=== PATIENT | female | born 1980 | race Caucasian/White ===

== ENCOUNTER 2016-11-04 00:48 | Emergency (ER) | payer MEDICAID ==
[~2016-11-04] VITALS: Ht 180.3 cm; Wt 166.0 kg
[~2016-11-04 00:48] MED LIST: ALBU8.5H6 INH; CYCL10TA2 PO; FLUO20CA16 PO; HYDR-2666 PO; HYDR-971 PO; NITR100C62 PO; OMEP40CA5 PO; ONDA4TAB7 PO; PHEN-318 PO
[2016-11-04 01:49] LABS: BASO # 0.1 x10^3/uL (0.0-0.2); BASO % 1 % (0-3); EOS % 4 % (0-3); HEMATOCRIT 38.3 % (36.0-47.0); HEMOGLOBIN 12.9 g/dL (12.0-15.5); LYMPH # 2.4 x10^3/uL (1.0-4.8); LYMPH % 32 % (24-48); MEAN CORPUSCULAR HEMOGLOBIN 30 pg (25-35); MEAN CORPUSCULAR HGB CONC 34 g/dL (31-37); MEAN CORPUSCULAR VOLUME 88 fL (79-100); MONO % 9 % (0-9); NEUT % 53 % (31-73); PLATELET COUNT 133 x10^3/uL (140-400); RED BLOOD COUNT 4.37 x10^6/uL (3.50-5.40); RED CELL DISTRIBUTION WIDTH 12.9 % (11.5-14.5); WHITE BLOOD COUNT 7.3 x10^3/uL (4.0-11.0)
[2016-11-04 01:58] LABS: BILIRUBIN,URINE NEGATIVE (NEG); GLUCOSE,URINE NEGATIVE (NEG); NITRITE,URINE NEGATIVE (NEG); PROTEIN,URINE NEGATIVE (NEG-TRACE); UROBILINOGEN,URINE 0.2 mg/dL (0.2 mg/dL)
[2016-11-04 01:59] LABS: CALCIUM 8.8 mg/dL (8.5-10.1); CREATININE 0.8 mg/dL (0.6-1.0); GFR 81.6; POTASSIUM 3.6 mmol/L (3.5-5.1)
[2016-11-04 02:05] LABS: ALBUMIN 3.5 g/dL (3.4-5.0); TOTAL BILIRUBIN 0.2 mg/dL (0.2-1.0)
[2016-11-04 02:23] LABS: BACTERIA,URINE FEW /HPF (0-FEW); SQUAMOUS EPITHELIAL CELL,UR FEW /LPF
--- NOTE | 2016-11-04 02:33 | RAD ---
PROCEDURE CT abdomen and pelvis without contrast dated 11/04/2016. HISTORY Abdominal pain, nausea and diarrhea for 2 hours. TECHNIQUE Contiguous axial imaging of the abdomen and pelvis performed without the administration of IV or oral contrast.Exposure: One or more of the following individualized dose reduction techniques were utilized for this exam: 1. Automated exposure control. 2. Adjustment of the mA and/or kV according to patient size. 3. Use of iterative reconstruction technique. COMPARISON 07/26/2016. FINDINGS Limited images of the lung bases are clear. Heart size within normal limits. No pleural or pericardial effusion. Solid abdominal viscera not well evaluated in the absence of contrast material. No apparent attenuation abnormality of the liver or spleen. Pancreas, adrenal glands and kidneys are unremarkable. No hydronephrosis. Gallbladder is surgically absent. One opacified GI tract normal in caliber and contour. No focal bowel wall thickening. No inflammatory change in the mesenteric. Appendix normal in caliber. No ascites or lymphadenopathy. Images of pelvis show nondistended urinary bladder. Uterus is surgically absent. No free pelvic fluid or pelvic lymphadenopathy. Bone window show no acute findings. Mild multilevel spondylosis. IMPRESSION - No acute abnormality of abdomen or pelvis. Normal appendix. - Status post cholecystectomy and hysterectomy. Electronically signed by: Esau Dietz (Nov 04, 2016 02:31:28)
[2016-11-04 02:43] VITALS: BP 155/90
[2016-11-04] MEDS ORDERED: ONDA4TAB10 SL (02:45)
--- NOTE | 2016-11-04 02:45 | PHYS DOC ---
Past Medical History Past Medical History: Asthma, Bipolar, GERD, Kidney Stone, Pancreatitis, Other Additional Past Medical Histor: ENLARGED LIVER,hirtuism Past Surgical History: Cholecystectomy, Hysterectomy, Tonsillectomy, Other Additional Past Surgical Histo: CYST REMOVED ON TAILBONE Alcohol Use: None Drug Use: None Adult General Chief Complaint Chief Complaint: ABDOMINAL PAIN HPI HPI 36-year-old female presenting to the emergency department with generalized abdominal pain. She describes it as being a cramping pain is associated with nausea with one episode of nonbilious nonbloody emesis. It is nonradiating moderate intermittent and is been present for greater than 24 hours. She reports it was worse after eating a local restaurant. Review of systems is negative for chest pain shortness of breath, diarrhea. Negative for fevers or chills. All other review of systems is negative unless otherwise noted in history of present illness. Review of Systems Review of Systems SEE ABOVE. Allergies Allergies Allergies Coded Allergies Type Severity Reaction Last Updated Verified Penicillins Allergy Intermediate SWEATING 04/01/14 Yes cephalexin Allergy Intermediate SWEATING 04/01/14 Yes ketorolac Allergy Intermediate 07/26/16 Yes sulfamethoxazole Allergy Intermediate SWEATING 04/01/14 Yes tramadol Allergy Intermediate SWEATING 04/01/14 Yes trimethoprim Allergy Intermediate SWEATING 04/01/14 Yes Physical Exam Physical Exam Constitutional: Well developed, well nourished, no acute distress, non-toxic appearance. HENT: Normocephalic, atraumatic, bilateral external ears normal, oropharynx moist, no oral exudates, nose normal. [] Eyes: PERRLA, EOMI, conjunctiva normal, no discharge. Neck: Normal range of motion, no tenderness, supple, no stridor. [] Cardiovascular:Heart rate regular rhythm, no murmur Lungs & Thorax: Bilateral breath sounds clear to auscultation [] Abdomen: Soft nontender abdomen without rebound tenderness or guarding present. Negative McBurneys point. Negative Neri sign. No ecchymosis present. Skin: Warm, dry, no erythema, no rash. Back: No tenderness, no CVA tenderness. [] Extremities: No tenderness, no cyanosis, no clubbing, ROM intact, no edema. Neurologic: Alert and oriented X 3, normal motor function, normal sensory function, no focal deficits noted. [] Psychologic: Affect normal, judgement normal, mood normal. [] Current Patient Data Vital Signs Vital Signs Date Time Temp Pulse Resp B/P Pulse Ox O2 Delivery O2 Flow Rate FiO2 11/04/16 00:56 97.8 78 20 154/77 96 Room Air 97.8 Lab Values Laboratory Tests Test 11/04/16 01:18 11/04/16 01:41 Urine Collection Type Unknown Urine Color Yellow Urine Clarity Clear Urine pH 6.0 Urine Specific [place] >=1.030 Urine Protein Negativemg/dL (NEG-TRACE) Urine Glucose (UA) Negativemg/dL (NEG) Urine Ketones (Stick) Negativemg/dL (NEG) Urine Blood Negative (NEG) Urine Nitrite Negative (NEG) Urine Bilirubin Negative (NEG) Urine Urobilinogen Dipstick 0.2mg/dL (0.2 mg/dL) Urine Leukocyte Esterase Negative (NEG) Urine RBC 6-10/HPF (0-2) Urine WBC 1-4/HPF (0-4) Urine Squamous Epithelial Cells Few/LPF Urine Bacteria Few/HPF (0-FEW) Urine Mucus Marked/LPF White Blood Count 7.3x10^3/uL (4.0-11.0) Red Blood Count 4.37x10^6/uL (3.50-5.40) Hemoglobin 12.9g/dL (12.0-15.5) Hematocrit 38.3% (36.0-47.0) Mean Corpuscular Volume 88fL (79-100) Mean Corpuscular Hemoglobin 30pg (25-35) Mean Corpuscular Hemoglobin Concent 34g/dL (31-37) Red Cell Distribution Width 12.9% (11.5-14.5) Platelet Count 133x10^3/uL (140-400) L Neutrophils (%) (Auto) 53% (31-73) Lymphocytes (%) (Auto) 32% (24-48) Monocytes (%) (Auto) 9% (0-9) Eosinophils (%) (Auto) 4% (0-3) H Basophils (%) (Auto) 1% (0-3) Neutrophils # (Auto) 3.9x10^3uL (1.8-7.7) Lymphocytes # (Auto) 2.4x10^3/uL (1.0-4.8) Monocytes # (Auto) 0.7x10^3/uL (0.0-1.1) Eosinophils # (Auto) 0.3x10^3/uL (0.0-0.7) Basophils # (Auto) 0.1x10^3/uL (0.0-0.2) Sodium Level 143mmol/L (136-145) Potassium Level 3.6mmol/L (3.5-5.1) Chloride Level 106mmol/L (98-107) Carbon Dioxide Level 27mmol/L (21-32) Anion Gap 10 (6-14) Blood Urea Nitrogen 14mg/dL (7-20) Creatinine 0.8mg/dL (0.6-1.0) Estimated GFR (Cockcroft-Gault) 81.6 BUN/Creatinine Ratio 18 (6-20) Glucose Level 109mg/dL (70-99) H Calcium Level 8.8mg/dL (8.5-10.1) Total Bilirubin 0.2mg/dL (0.2-1.0) Aspartate Amino Transferase (AST) 39U/L (15-37) H Alanine Aminotransferase (ALT) 85U/L (14-59) H Alkaline Phosphatase 99U/L (46-116) Total Protein 7.0g/dL (6.4-8.2) Albumin 3.5g/dL (3.4-5.0) Albumin/Globulin Ratio 1.0 (1.0-1.7) Lipase 205U/L (73-393) Laboratory Tests 11/04/16 01:41 Laboratory Tests 11/04/16 01:41 EKG EKG [] Radiology/Procedures Radiology/Procedures [] Course & Med Decision Making Course & Med Decision Making Pertinent Labs and Imaging studies reviewed. (See chart for details) [] 36-year-old female presenting to the emergency department today with generalized abdominal pain without a focus. She also had nausea and vomiting. Afebrile. Normal heart rate. Otherwise vital signs showed mild hypertension. Pertinent physical exam finding showed a nontender abdomen. A work was obtained normal CBC. Urinalysis showed dehydration without evidence of infection. Chemistry panel otherwise unremarkable. The patient was given a shot of intramuscular Bentyl along with oral Zofran to go home with for symptomatic care. She was subsequent discharged home to follow-up with her PCP over the next 2-3 days. [id number] discharge instructions were given. Dragon Disclaimer Dragon Disclaimer This electronic medical record was generated, in whole or in part, using a voice recognition dictation system. Departure Departure Impression: Primary Impression: Abdominal pain Additional Impression: Nausea vomiting and diarrhea Disposition: HOME, SELF-CARE Condition: STABLE Referrals: UNKNOWN PCP NAME (PCP) ALEXANDRU MARIE MD Patient Instructions: Nausea and Vomiting Additional Instructions: Thank you for allowing us to participate in your care today. Followup with your primary care physician in 3 days if your symptoms do not improve. If you do not have a primary care provider you can ask for a list of our primary care providers. Return to the emergency department you have any new or concerning findings. This should be evaluated by the primary care physician and any necessary consulting services for continued management within a few days after discharge. Return to emergency room if you have any new or concerning symptoms including but not limited to fever, chills, nausea, vomiting, intractable pain, any new rashes, chest pain, shortness of air, uncontrolled bleeding, difficulty breathing, and/or vision loss. You may have been prescribed medication that can change in your level of thinking and ability to operate machinery. These medications include hydrocodone and Ativan. Also, Benadryl has been known to do this as well. Be sure to check with your pharmacist and ask if the medications you've prescribed can affect your level of consciousness. I recommend not operating heavy machinery or driving while on medication such as these. Scripts Ondansetron (Zofran Odt)4 Mg Tab.rapdis1 Tab SL PRN Q8HRS PRN NAUSEA #6 TAB Prov:WENDY DUKE MD 11/04/16 Problem Qualifiers WENDY DUKE MD Nov 04, 2016 02:45
[2016-11-04] MEDS ORDERED: DICYCLOMINE 20 MG/2 ML AMPUL. IM ONE (03:00)
== END 2016-11-04 03:12 | disposition home or self-care (01) ==
LOC: ER 00:48
DX: R10.84 Generalized abdominal pain (principal); R11.2 Nausea with vomiting, unspecified; R19.7 Diarrhea, unspecified; J45.909 Unspecified asthma, uncomplicated; K21.9 Gastro-esophageal reflux disease without esophagitis; F31.9 Bipolar disorder, unspecified; Z87.442 Personal history of urinary calculi; Z90.710 Acquired absence of both cervix and uterus; Z90.49 Acquired absence of other specified parts of digestive tract; L68.0 Hirsutism; Z88.0 Allergy status to penicillin; Z88.1 Allergy status to other antibiotic agents; Z88.2 Allergy status to sulfonamides; Z88.6 Allergy status to analgesic agent; Z88.8 Allergy status to other drugs, medicaments and biological substances
CPT/HCPCS: 36415; 74176; 80053; 81001; 83690; 85027; 99285-25

== ENCOUNTER 2016-12-09 05:24 | Emergency (ER) | payer MEDICAID ==
[~2016-12-09] VITALS: Ht 180.3 cm; Wt 166.0 kg
[~2016-12-09 05:24] MED LIST changes: +ONDA4TAB10 SL
[2016-12-09] MEDS ORDERED: IV NORMAL SALINE 1000ML BAG 1,000 ML IV SCH (05:45)
--- NOTE | 2016-12-09 05:45 | PHYS DOC ---
Past Medical History Past Medical History: Asthma, Bipolar, GERD, Kidney Stone, Pancreatitis, Other Additional Past Medical Histor: ENLARGED LIVER,hirtuism Past Surgical History: Cholecystectomy, Hysterectomy, Tonsillectomy, Other Additional Past Surgical Histo: CYST REMOVED ON TAILBONE Alcohol Use: None Drug Use: None Adult General Chief Complaint Chief Complaint: FLANK PAIN HPI HPI 0543: Patient is a 36 year old female with a history significant for pancreatitis, kidney stones, status post total abdominal hysterectomy, status post cholecystectomy, but that's the ER today complaining of right flank pain radiating to her right groin that started earlier today. Patient reports that this feels similar to her prior kidney stones in the past. Patient has any fevers shakes chills. Patient is nauseous but no vomiting or diarrhea. Patient has a dysuria frequency or urgency. Patient has any chest pain or shortness of breath. Patient's physical exam was significant for tenderness to palpation in her right flank. Patient has no rebound or guarding. Patient has no psoas or obturator signs. Patient then exhibiting any signs or symptoms of be consistent with an acute surgical abdomen. A/P #1 right flank pain: Given patient's history and her symptoms this is most likely consistent with renal colic. Patient will be given Dilaudid and Zofran to assist with her pain as well as IV fluids. CT scan of the abdomen without IV or by mouth contrast is ordered to assess her pain further. Patient will be signed out to Dr. Godfrey at 7 AM for further management and disposition of the patient. Review of Systems Review of Systems Constitutional: Denies fever or chills [] Eyes: Denies change in visual acuity, redness, or eye pain [] All other review systems are negative except as documented in the history of present illness portion. Current Medications Current Medications Current Medications Medications (Trade) Dose Ordered Sig/Rod Start Time Stop Time Status Last Admin Dose Admin Hydromorphone HCl (Dilaudid) 1 mg PRN Q15MIN PRN 12/09/16 07:30 12/09/16 08:25 DC 12/09/16 07:27 1 MG Ondansetron HCl (Zofran) 4 mg 1X ONCE 12/09/16 06:00 12/09/16 06:01 DC 12/09/16 06:34 4 MG Sodium Chloride (Iv Sodium Chloride 0.9% 1000ml Bag) 1,000 ml @ 1,000 mls/hr Q1H 12/09/16 05:45 12/09/16 06:44 DC 12/09/16 06:32 1,000 MLS/HR Allergies Allergies Allergies Coded Allergies Type Severity Reaction Last Updated Verified Penicillins Allergy Intermediate SWEATING 04/01/14 Yes cephalexin Allergy Intermediate SWEATING 04/01/14 Yes dicyclomine Allergy Intermediate 11/04/16 Yes ketorolac Allergy Intermediate 07/26/16 Yes sulfamethoxazole Allergy Intermediate SWEATING 04/01/14 Yes tramadol Allergy Intermediate SWEATING 04/01/14 Yes trimethoprim Allergy Intermediate SWEATING 04/01/14 Yes Physical Exam Physical Exam Constitutional: Well developed, well nourished, no acute distress, non-toxic appearance. [] HENT: Normocephalic, atraumatic, Eyes:EOMI, Neck: Normal range of motion, Cardiovascular:Heart rate regular rhythm, Lungs & Thorax: Bilateral breath sounds clear to auscultation [] Abdomen: Bowel sounds normal, soft, mild tenderness to palpation to the right flank., no masses, no pulsatile masses. [] Skin: Warm, dry, no erythema, no rash. [] Back: Tenderness to palpation right flank Extremities: , no cyanosis, Neurologic: Alert and oriented X 3, Psychologic: Affect normal, judgement normal, mood normal. [] Current Patient Data Vital Signs Vital Signs Date Time Temp Pulse Resp B/P Pulse Ox O2 Delivery O2 Flow Rate FiO2 12/09/16 07:52 80 19 147/72 92 Room Air 12/09/16 05:30 97.7 97.7 Lab Values Laboratory Tests Test 12/09/16 04:41 12/09/16 05:36 12/09/16 06:30 POC Urine HCG, Qualitative Hcg negative (Negative) Urine Collection Type Unknown Urine Color Yellow Urine Clarity Clear Urine pH 7.0 Urine Specific [place] >=1.030 Urine Protein Negativemg/dL (NEG-TRACE) Urine Glucose (UA) Negativemg/dL (NEG) Urine Ketones (Stick) Negativemg/dL (NEG) Urine Blood Negative (NEG) Urine Nitrite Negative (NEG) Urine Bilirubin Negative (NEG) Urine Urobilinogen Dipstick 0.2mg/dL (0.2 mg/dL) Urine Leukocyte Esterase Negative (NEG) Urine RBC 0/HPF (0-2) Urine WBC 0/HPF (0-4) Urine Squamous Epithelial Cells Few/LPF Urine Bacteria 0/HPF (0-FEW) Urine Mucus Mod/LPF White Blood Count 8.4x10^3/uL (4.0-11.0) Red Blood Count 4.55x10^6/uL (3.50-5.40) Hemoglobin 13.5g/dL (12.0-15.5) Hematocrit 38.9% (36.0-47.0) Mean Corpuscular Volume 86fL (79-100) Mean Corpuscular Hemoglobin 30pg (25-35) Mean Corpuscular Hemoglobin Concent 35g/dL (31-37) Red Cell Distribution Width 13.0% (11.5-14.5) Platelet Count 148x10^3/uL (140-400) Neutrophils (%) (Auto) 57% (31-73) Lymphocytes (%) (Auto) 28% (24-48) Monocytes (%) (Auto) 10% (0-9) H Eosinophils (%) (Auto) 4% (0-3) H Basophils (%) (Auto) 1% (0-3) Neutrophils # (Auto) 4.8x10^3uL (1.8-7.7) Lymphocytes # (Auto) 2.3x10^3/uL (1.0-4.8) Monocytes # (Auto) 0.8x10^3/uL (0.0-1.1) Eosinophils # (Auto) 0.4x10^3/uL (0.0-0.7) Basophils # (Auto) 0.1x10^3/uL (0.0-0.2) Sodium Level 140mmol/L (136-145) Potassium Level 3.6mmol/L (3.5-5.1) Chloride Level 104mmol/L (98-107) Carbon Dioxide Level 26mmol/L (21-32) Anion Gap 10 (6-14) Blood Urea Nitrogen 17mg/dL (7-20) Creatinine 0.9mg/dL (0.6-1.0) Estimated GFR (Cockcroft-Gault) 71.3 BUN/Creatinine Ratio 19 (6-20) Glucose Level 109mg/dL (70-99) H Calcium Level 9.0mg/dL (8.5-10.1) Total Bilirubin 0.3mg/dL (0.2-1.0) Aspartate Amino Transferase (AST) 36U/L (15-37) Alanine Aminotransferase (ALT) 78U/L (14-59) H Alkaline Phosphatase 108U/L (46-116) Total Protein 7.4g/dL (6.4-8.2) Albumin 3.6g/dL (3.4-5.0) Albumin/Globulin Ratio 0.9 (1.0-1.7) L Laboratory Tests 12/09/16 06:30 Laboratory Tests 12/09/16 06:30 EKG EKG [] Radiology/Procedures Radiology/Procedures [facility] [address] [place], [place] [id number] IMAGING REPORT Signed PATIENT: TUYET LLOYD ACCOUNT: [id number] : 1980 LOCATION: ER AGE: 36 SEX: F EXAM STATUS: REG ER ORD. PHYSICIAN: RADHA LEE MD REASON: r flank pain; not ready @5:55 PROCEDURE: CT ABDOMEN PELVIS WO CONTRAST CT of the abdomen and pelvis without contrast, 12/09/2016: History: Right flank pain Noncontrast scans were obtained through the urinary tract utilizing the renal stone protocol. This is a limited study for evaluation of the possibility of urinary tract calculi. No intrarenal calculi are identified. The renal collecting systems and ureters are not dilated. No ureteral calculus is seen. The partially filled urinary bladder is unremarkable. The unopacified liver is unremarkable. The gallbladder is surgically absent. No pancreatic abnormality is detected. The spleen is of normal size. The uterus is surgically absent. The bowel loops are not dilated. The appendix is visualized and shows no abnormality. No free fluid or free air is evident in the abdomen or pelvis. IMPRESSION: No urinary tract calculi are identified. PQRS Compliance Statement: One or more of the following individualized dose reduction techniques were utilized for this examination: 1. Automated exposure control 2. Adjustment of the mA and/or kV according to patient size 3. Use of iterative reconstruction technique DICTATED and SIGNED BY: BEBETO PADILLA MD DATE: 12/09/16 0717 CC: RADHA LEE MD; DELL GODFREY MD; UNKNOWN PCP NAME ~ Impressions: Abdominal pain Course & Med Decision Making Course & Med Decision Making Pertinent Labs and Imaging studies reviewed. (See chart for details) As a checkout from Dr. Rousseau. CT scan does not show any acute abnormalities. She's had a complete hysterectomy and has had her ovaries removed , per the patient. Patient's labs did not show any acute abnormalities. CT scan seizure appendix and is noninflamed. She tells me the symptoms been going on for approximately 3 days. She is being discharged with a few tablets of percocet and instructed to follow-up with a primary care physician. Return precautions given for fevers, worsening pain, or other concerns. Dragon Disclaimer Dragon Disclaimer This electronic medical record was generated, in whole or in part, using a voice recognition dictation system. Departure Departure Impression: Primary Impression: Abdominal pain Disposition: HOME, SELF-CARE Condition: STABLE Referrals: UNKNOWN PCP NAME (PCP) Patient Instructions: Abdominal Pain (Nonspecific) Additional Instructions: The CAT scan of her abdomen pelvis did not show any acute abnormalities. Your being discharged home with a few tablets of Percocet. Please follow-up with her primary care physician. Return back to ER for worsening pain, uncontrolled nausea, vomiting, fevers, inability to keep liquids down, or other concerns. Scripts Oxycodone/Apap 7.5-325 (Percocet 7.5-325 Mg Tablet)1 Each Tablet1 Tab PO PRN Q6HRS PRN PAIN #14 TAB Ref 0 Prov:DELL GODFREY MD 12/09/16 RADHA LEE MD Dec 09, 2016 05:44 DELL GODFREY MD Dec 09, 2016 07:50
[2016-12-09 05:50] LABS: BILIRUBIN,URINE NEGATIVE (NEG); GLUCOSE,URINE NEGATIVE (NEG); NITRITE,URINE NEGATIVE (NEG); PROTEIN,URINE NEGATIVE (NEG-TRACE); UROBILINOGEN,URINE 0.2 mg/dL (0.2 mg/dL)
[2016-12-09] MEDS ORDERED: ONDANSETRON PF 4 MG/2 ML VIAL. IV ONE (06:00)
[2016-12-09] MEDS ORDERED: HYDROMORPHONE 2 MG/ML VIAL. IV ONE (06:00)
[2016-12-09 06:08] LABS: BACTERIA,URINE 0 /HPF (0-FEW); RBC,URINE 0 /HPF (0-2); SQUAMOUS EPITHELIAL CELL,UR FEW /LPF; WBC,URINE 0 /HPF (0-4)
[2016-12-09 06:41] LABS: BASO # 0.1 x10^3/uL (0.0-0.2); BASO % 1 % (0-3); EOS % 4 % (0-3); HEMATOCRIT 38.9 % (36.0-47.0); HEMOGLOBIN 13.5 g/dL (12.0-15.5); LYMPH # 2.3 x10^3/uL (1.0-4.8); LYMPH % 28 % (24-48); MEAN CORPUSCULAR HEMOGLOBIN 30 pg (25-35); MEAN CORPUSCULAR HGB CONC 35 g/dL (31-37); MEAN CORPUSCULAR VOLUME 86 fL (79-100); MONO % 10 % (0-9); NEUT % 57 % (31-73); PLATELET COUNT 148 x10^3/uL (140-400); RED BLOOD COUNT 4.55 x10^6/uL (3.50-5.40); WHITE BLOOD COUNT 8.4 x10^3/uL (4.0-11.0)
[2016-12-09 06:50] LABS: CREATININE 0.9 mg/dL (0.6-1.0); GFR 71.3; POTASSIUM 3.6 mmol/L (3.5-5.1)
[2016-12-09 06:56] LABS: ALBUMIN 3.6 g/dL (3.4-5.0); ALBUMIN/GLOBULIN RATIO 0.9 (1.0-1.7); TOTAL BILIRUBIN 0.3 mg/dL (0.2-1.0); TOTAL PROTEIN 7.4 g/dL (6.4-8.2)
--- NOTE | 2016-12-09 07:24 | RAD ---
CT of the abdomen and pelvis without contrast, 12/09/2016: History: Right flank pain Noncontrast scans were obtained through the urinary tract utilizing the renal stone protocol. This is a limited study for evaluation of the possibility of urinary tract calculi. No intrarenal calculi are identified. The renal collecting systems and ureters are not dilated. No ureteral calculus is seen. The partially filled urinary bladder is unremarkable. The unopacified liver is unremarkable. The gallbladder is surgically absent. No pancreatic abnormality is detected. The spleen is of normal size. The uterus is surgically absent. The bowel loops are not dilated. The appendix is visualized and shows no abnormality. No free fluid or free air is evident in the abdomen or pelvis. IMPRESSION: No urinary tract calculi are identified. PQRS Compliance Statement: One or more of the following individualized dose reduction techniques were utilized for this examination: 1. Automated exposure control 2. Adjustment of the mA and/or kV according to patient size 3. Use of iterative reconstruction technique
[2016-12-09] MEDS ORDERED: HYDROMORPHONE 2 MG/ML VIAL. IV/SQ PRN (07:30)
[2016-12-09 07:52] VITALS: BP 147/72
[2016-12-09] MEDS ORDERED: OXYC-244 PO (08:09)
== END 2016-12-09 08:25 | disposition home or self-care (01) ==
LOC: ER 05:24
DX: R10.9 Unspecified abdominal pain (principal); J45.909 Unspecified asthma, uncomplicated; K21.9 Gastro-esophageal reflux disease without esophagitis; Z90.49 Acquired absence of other specified parts of digestive tract; Z90.710 Acquired absence of both cervix and uterus; Z88.0 Allergy status to penicillin; Z88.1 Allergy status to other antibiotic agents; Z88.6 Allergy status to analgesic agent
CPT/HCPCS: 36415; 74176; 80053; 81001; 81025; 85027; 96361; 96374; 96375; 96376; 99285; J1170; J2405; J7030

== ENCOUNTER 2016-12-11 04:35 | Inpatient (IN) | payer MEDICAID ==
[~2016-12-11] VITALS: Ht 180.3 cm; Wt 164.0 kg
[~2016-12-11 04:35] MED LIST changes: +OXYC-244 PO
[2016-12-11 05:49] LABS: BASO # 0.1 x10^3/uL (0.0-0.2); BASO % 1 % (0-3); EOS % 5 % (0-3); HEMATOCRIT 39.1 % (36.0-47.0); HEMOGLOBIN 13.4 g/dL (12.0-15.5); LYMPH # 2.3 x10^3/uL (1.0-4.8); LYMPH % 30 % (24-48); MEAN CORPUSCULAR HEMOGLOBIN 30 pg (25-35); MEAN CORPUSCULAR HGB CONC 34 g/dL (31-37); MEAN CORPUSCULAR VOLUME 87 fL (79-100); MONO % 11 % (0-9); NEUT % 53 % (31-73); PLATELET COUNT 155 x10^3/uL (140-400); RED BLOOD COUNT 4.51 x10^6/uL (3.50-5.40); RED CELL DISTRIBUTION WIDTH 13.1 % (11.5-14.5); WHITE BLOOD COUNT 7.5 x10^3/uL (4.0-11.0)
[2016-12-11 05:50] LABS: BILIRUBIN,URINE NEGATIVE (NEG); GLUCOSE,URINE NEGATIVE (NEG); NITRITE,URINE NEGATIVE (NEG); PH,URINE 5.5; PROTEIN,URINE NEGATIVE (NEG-TRACE); UROBILINOGEN,URINE 0.2 mg/dL (0.2 mg/dL)
[2016-12-11 05:56] LABS: CALCIUM 9.2 mg/dL (8.5-10.1); CREATININE 0.9 mg/dL (0.6-1.0); GFR 71.3; POTASSIUM 3.7 mmol/L (3.5-5.1)
[2016-12-11 06:02] LABS: ALBUMIN 3.6 g/dL (3.4-5.0); TOTAL BILIRUBIN 0.3 mg/dL (0.2-1.0); TOTAL PROTEIN 7.3 g/dL (6.4-8.2)
[2016-12-11 06:04] LABS: BACTERIA,URINE FEW /HPF (0-FEW); RBC,URINE RARE /HPF (0-2); SQUAMOUS EPITHELIAL CELL,UR FEW /LPF; WBC,URINE OCC /HPF (0-4)
--- NOTE | 2016-12-11 06:57 | PHYS DOC ---
Past Medical History Past Medical History: Asthma, Bipolar, GERD, Kidney Stone, Pancreatitis, Other Additional Past Medical Histor: ENLARGED LIVER,hirtuism Past Surgical History: Cholecystectomy, Hysterectomy, Tonsillectomy, Other Additional Past Surgical Histo: CYST REMOVED ON TAILBONE Alcohol Use: None Drug Use: None Adult General Chief Complaint Chief Complaint: ABDOMINAL PAIN HPI HPI Patient is a 36 year old female who presents with abdominal pain. Patient reports 3 day history of right flank pain now with severe RLQ pain. She states the pain is sharp & constant. She reports associated nausea & vomiting. Denies fevers/chills, hematemesis, diarrhea, constipation, dysuria/hematuria, vaginal bleeding/discharge. She was seen here 2 days ago for suspected kidney stone but workup at that time was unremarkable, pain poorly controlled at home. She has history of cholecystectomy & total abdominal hysterectomy. Review of Systems Review of Systems Constitutional: Denies fever or chills Eyes: Denies change in visual acuity HENT: Denies nasal congestion or sore throat Respiratory: Denies cough or shortness of breath Cardiovascular: Denies chest pain or edema GI: Reports abdominal pain, nausea, vomiting, denies bloody stools or diarrhea : Denies dysuria or hematuria Musculoskeletal: Reports flank pain, denies joint pain Integument: Denies rash or skin lesions Neurologic: Denies headache, focal weakness or sensory changes Current Medications Current Medications Current Medications Medications (Trade) Dose Ordered Sig/Rod Start Time Stop Time Status Last Admin Dose Admin Acetaminophen (Tylenol) 650 mg PRN Q4HRS PRN 12/11/16 10:00 12/12/16 09:59 UNV Hydromorphone HCl (Dilaudid) 1 mg PRN Q15MIN PRN 12/11/16 06:30 12/12/16 06:29 12/11/16 07:49 1 MG Info (Do NOT chart on this entry -- for MONITORING) 1 each PRN DAILY PRN 12/11/16 07:15 12/13/16 07:14 Iohexol (Omnipaque 300 Mg/ml) 75 ml 1X ONCE 12/11/16 07:00 12/11/16 07:02 DC 12/11/16 08:28 75 ML Morphine Sulfate 4 mg 4 mg PRN Q2HR PRN 12/11/16 10:00 12/12/16 09:59 UNV Ondansetron HCl (Zofran) 4 mg PRN Q8HRS PRN 12/11/16 10:00 12/12/16 09:59 UNV Sodium Chloride (Iv Sodium Chloride 0.9% 1000ml Bag) 1,000 ml @ 125 mls/hr Q8H 12/11/16 09:49 12/12/16 09:48 UNV Allergies Allergies Allergies Coded Allergies Type Severity Reaction Last Updated Verified Penicillins Allergy Intermediate SWEATING 04/01/14 Yes cephalexin Allergy Intermediate SWEATING 04/01/14 Yes dicyclomine Allergy Intermediate 11/04/16 Yes ketorolac Allergy Intermediate 07/26/16 Yes sulfamethoxazole Allergy Intermediate SWEATING 04/01/14 Yes tramadol Allergy Intermediate SWEATING 04/01/14 Yes trimethoprim Allergy Intermediate SWEATING 04/01/14 Yes Physical Exam Physical Exam Constitutional: morbidly obese, no acute distress, non-toxic appearance. HENT: Normocephalic, atraumatic, bilateral external ears normal, oropharynx moist, nose normal. Eyes: conjunctiva normal, no discharge. Neck: supple, no stridor. Cardiovascular: RRR, no murmurs, no edema. Lungs & Thorax: LCTAB, no wheezing, no respiratory distress. Abdomen: normal bowel sounds, soft, RLQ tenderness with rebound & guarding, no masses or pulsatile masses, nondistended. Skin: Warm, dry, no erythema, no rash. Back: no CVA tenderness, right lower back tenderness is present. Extremities: No tenderness, no edema. Neurologic: Alert and oriented X 3, no focal deficits noted. Psychologic: Affect normal, judgement normal, mood normal. Current Patient Data Vital Signs Vital Signs Date Time Temp Pulse Resp B/P Pulse Ox O2 Delivery O2 Flow Rate FiO2 12/11/16 07:49 20 96 12/11/16 07:30 84 142/72 Room Air 12/11/16 04:59 98.3 98.3 Lab Values Laboratory Tests Test 12/11/16 05:14 12/11/16 05:25 Urine Collection Type Unknown Urine Color Yellow Urine Clarity Clear Urine pH 5.5 Urine Specific [place] >=1.030 Urine Protein Negativemg/dL (NEG-TRACE) Urine Glucose (UA) Negativemg/dL (NEG) Urine Ketones (Stick) Negativemg/dL (NEG) Urine Blood Negative (NEG) Urine Nitrite Negative (NEG) Urine Bilirubin Negative (NEG) Urine Urobilinogen Dipstick 0.2mg/dL (0.2 mg/dL) Urine Leukocyte Esterase Negative (NEG) Urine RBC Rare/HPF (0-2) Urine WBC Occ/HPF (0-4) Urine Squamous Epithelial Cells Few/LPF Urine Bacteria Few/HPF (0-FEW) Urine Mucus Marked/LPF Urine Test Negative (NEG) White Blood Count 7.5x10^3/uL (4.0-11.0) Red Blood Count 4.51x10^6/uL (3.50-5.40) Hemoglobin 13.4g/dL (12.0-15.5) Hematocrit 39.1% (36.0-47.0) Mean Corpuscular Volume 87fL (79-100) Mean Corpuscular Hemoglobin 30pg (25-35) Mean Corpuscular Hemoglobin Concent 34g/dL (31-37) Red Cell Distribution Width 13.1% (11.5-14.5) Platelet Count 155x10^3/uL (140-400) Neutrophils (%) (Auto) 53% (31-73) Lymphocytes (%) (Auto) 30% (24-48) Monocytes (%) (Auto) 11% (0-9) H Eosinophils (%) (Auto) 5% (0-3) H Basophils (%) (Auto) 1% (0-3) Neutrophils # (Auto) 4.0x10^3uL (1.8-7.7) Lymphocytes # (Auto) 2.3x10^3/uL (1.0-4.8) Monocytes # (Auto) 0.8x10^3/uL (0.0-1.1) Eosinophils # (Auto) 0.4x10^3/uL (0.0-0.7) Basophils # (Auto) 0.1x10^3/uL (0.0-0.2) Sodium Level 142mmol/L (136-145) Potassium Level 3.7mmol/L (3.5-5.1) Chloride Level 105mmol/L (98-107) Carbon Dioxide Level 26mmol/L (21-32) Anion Gap 11 (6-14) Blood Urea Nitrogen 16mg/dL (7-20) Creatinine 0.9mg/dL (0.6-1.0) Estimated GFR (Cockcroft-Gault) 71.3 BUN/Creatinine Ratio 18 (6-20) Glucose Level 96mg/dL (70-99) Calcium Level 9.2mg/dL (8.5-10.1) Total Bilirubin 0.3mg/dL (0.2-1.0) Aspartate Amino Transferase (AST) 39U/L (15-37) H Alanine Aminotransferase (ALT) 82U/L (14-59) H Alkaline Phosphatase 105U/L (46-116) Total Protein 7.3g/dL (6.4-8.2) Albumin 3.6g/dL (3.4-5.0) Albumin/Globulin Ratio 1.0 (1.0-1.7) Lipase 155U/L (73-393) Laboratory Tests 12/11/16 05:25 Laboratory Tests 12/11/16 05:25 EKG EKG [] Radiology/Procedures Radiology/Procedures PROCEDURE: CT ABD PELV W/ IV CONTRST ONLY CT of the abdomen and pelvis with contrast, 12/11/2016: History: Right lower quadrant pain, nausea and vomiting Multidetector CT imaging was performed following an IV bolus injection of iodinated contrast material. No oral contrast material was administered for this study. A couple of tiny unchanged nonspecific nodular opacities are again noted in the left base. The gallbladder is surgically absent. No hepatic mass is evident. The pancreas is unremarkable. The spleen is of normal size. No renal or adrenal abnormality is detected. The abdominal aorta is of normal caliber. No abdominal or pelvic adenopathy is seen. The uterus is surgically absent. The bowel loops are not dilated. The appendix is visualized and is normal. No free fluid or free air is evident in the abdomen or pelvis. IMPRESSION: No acute abdominal or pelvic abnormality is detected. PQRS Compliance Statement: One or more of the following individualized dose reduction techniques were utilized for this examination: 1. Automated exposure control 2. Adjustment of the mA and/or kV according to patient size 3. Use of iterative reconstruction technique DICTATED and SIGNED BY: BEBETO PADILLA MD DATE: 12/11/16 0903[] Course & Med Decision Making Course & Med Decision Making Pertinent Labs and Imaging studies reviewed. (See chart for details) The patient presents with abdominal pain. Gave IV fluids, pain medication, antiemetics. Labs unremarkable except slightly elevated AST/ALT, gallbladder surgically absent & her pain is more localized in RLQ. She has surgically absent ovaries. Obtained repeat CT after discussing with patient, exam concerning for acute appendicitis despite recent negative CT. Her body habitus is not conducive to other imaging of the appendix such as ultrasound. CT again shows no acute process. Discussed results with the patient & she does not feel well enough to go home. Discussed with Dr. Hickey who agrees to accept the patient for admission to inpatient status. GI consult to Dr. Cervantes. The patient is admitted in stable condition. [] Dragon Disclaimer Dragon Disclaimer This electronic medical record was generated, in whole or in part, using a voice recognition dictation system. Departure Departure Impression: Primary Impression: Abdominal pain Disposition: ADMITTED INPATIENT Admitting Physician: Dominic Hickey Condition: STABLE Referrals: UNKNOWN PCP NAME (PCP) LAURA GORDON MD Dec 11, 2016 06:57
[2016-12-11] MEDS: HYDROMORPHONE 2 MG/ML VIAL. IV/SQ PRN ×2 (06:59→07:49)
[2016-12-11] MEDS ORDERED: IOHEXOL 300 MG/ML 75 ML VIAL IV ONE (07:00)
[2016-12-11] MEDS ORDERED: IV NORMAL SALINE 1000ML BAG 1,000 ML IV ONE (07:00)
[2016-12-11] MEDS ORDERED: ONDANSETRON PF 4 MG/2 ML VIAL. IV ONE (07:00)
[2016-12-11] MEDS ORDERED: CONTRAST GIVEN MC PRN (07:15)
[2016-12-11 08:14] LABS: NEG OBC UR NEG; POS OBC UR POS
--- NOTE | 2016-12-11 09:12 | RAD ---
CT of the abdomen and pelvis with contrast, 12/11/2016: History: Right lower quadrant pain, nausea and vomiting Multidetector CT imaging was performed following an IV bolus injection of iodinated contrast material. No oral contrast material was administered for this study. A couple of tiny unchanged nonspecific nodular opacities are again noted in the left base. The gallbladder is surgically absent. No hepatic mass is evident. The pancreas is unremarkable. The spleen is of normal size. No renal or adrenal abnormality is detected. The abdominal aorta is of normal caliber. No abdominal or pelvic adenopathy is seen. The uterus is surgically absent. The bowel loops are not dilated. The appendix is visualized and is normal. No free fluid or free air is evident in the abdomen or pelvis. IMPRESSION: No acute abdominal or pelvic abnormality is detected. PQRS Compliance Statement: One or more of the following individualized dose reduction techniques were utilized for this examination: 1. Automated exposure control 2. Adjustment of the mA and/or kV according to patient size 3. Use of iterative reconstruction technique
[2016-12-11] MEDS ORDERED: ONDANSETRON PF 4 MG/2 ML VIAL. IV PRN ×2 (10:00→15:30)
[2016-12-11] MEDS ORDERED: ACETAMINOPHEN 325 MG TABLET. PO PRN ×2 (10:00→15:30)
[2016-12-11] MEDS: IV NORMAL SALINE 1000ML BAG 1,000 ML IV SCH ×2 (11:11→19:38)
[2016-12-11] MEDS: MORPHINE SULFATE 4 MG/ML DISP.SYRIN. IV PRN ×2 (11:14→14:23)
--- NOTE | 2016-12-11 12:05 | ACF ---
Admission Forms Criteria ABDOMINAL PAIN Clinical Indications for Admission to Inpatient Care (Place 'X' for any and all applicable criteria): Admission is indicated for ANY ONE of the following(1)(2)(3)(4)(5): [X]I. Inpatient admission required rather than observation care (Also use Abdominal Pain: Observation Care, as appropriate) because of ANY ONE of the following: [X]a) Severe pain requiring acute inpatient management [ ]b) Identification of etiology/finding that requires inpatient care (eg, aortic dissection, free air) [ ]c) Absent bowel sounds with complete ileus(6) [ ]d) Suspected toxic megacolon [ ]e) Severe electrolyte abnormalities requiring inpatient care [ ]f) High fever or infection requiring inpatient admission as indicated by ANY ONE of following(7)(8): [ ] i) Appropriate outpatient or observational care antimicrobial treatment unavailable, not effective, or not feasible [ ] ii) Documented bacteremia [ ] iii) Temperature > 104.9 degrees F (oral) [ ] iv) T >103.1 F (oral) or < 96.8 F(rectal) that does not respond to all emergency treatment measures [ ]g) Signs of intestinal obstruction [B] [ ]h) Hemodynamic instability [ ]i) IV fluid to replace significant ongoing losses (greater than 3 L/m2 per day) (12)(13) [ ]j) Percutaneous or open drainage (eg, abscess, biliary tract ) procedures [ ]k) Parenteral nutrition regimen that must be implemented on inpatient basis [ ]l) Other condition,treatment or monitoring requiring inpatient admission. [ ]II. Peritoneal signs present [ ]III. Surgery needed that cannot be performed on an ambulatory basis. [ ]IV. Evaluation requires patient to not eat or drink for extended period ( eg, more than 24 hours). [ ]V. Contraindications and/or Inappropriate clinical situations for Observational Care in patients with abdominal pain, when ANY ONE of the following is required: [ ]a) Thorough evaluation is required to prevent catastrophic events due to delays in diagnosing (e.g.Mesenteric ischemia) 1,3 [ ]b) Patient with severe pathology or with chronic symptoms unlikely to improve in the ED stay (3) [ ]. General contraindications and/or Inappropriate clinical situations for Observational Care in patients with abdominal pain, when ANY ONE of the following is required: [ ]a) Prediction of prolongation of LOS based on ANY ONE of the following may be considered as a contraindication for observational care 2, 3, 4, 5, 6, 7, 8, 9, 10, 11 [ ]i) Age > 65 yrs. [ ]ii) Patient arriving by ambulance [ ]iii) Patient with high acuity [ ]iv) Patient requiring vital sign monitoring [ ]v) Patient on IV medication [ ]b) Systolic blood pressures 180mmHg 3,12 [ ]c) Patient with altered mental status including delirium and other alteration of consciousness, (3) [ ]d) Patient whose discharge disposition will be to a long-term home or rehabilitation home should not be managed in Emergency Department Observation Unit. CMS rule requires 3 days hospital stay before such placement.3,13 [ ]e) Patient with failure to thrive due to broad array of etiologies 3,16,17 [ ]f) Inability to ambulate 3,14 Extended stay beyond goal length of stay may be needed for(2)(3): [ ]a) Persistent abdominal pain with suspected intra-abdominal process [ ]b) Diagnosed condition requiring continued stay (e.g., pancreatitis, complicated diverticulitis) [ ]c) Surgery (e.g., colectomy) The original [facility] content created by [employer] has been revised. The portions of the content which have been revised are identified through the use of italic text or in bold, and [facility] has neither reviewed nor approved the modified material.All other unmodified content is copyright [facility]. Please see references footnoted in the original [facility] edition 2016 Admission Criteria Met?: Yes SHAAN MUÑOZ Dec 11, 2016 12:05
[2016-12-11 12:22] VITALS: BP 135/79
[2016-12-11] MEDS ORDERED: CYCL10TA2 PO (12:51)
[2016-12-11] MEDS ORDERED: RANI300T PO (12:51)
[2016-12-11] MEDS ORDERED: SERT100T PO (12:51)
--- NOTE | 2016-12-11 13:01 | PDOC2 ---
CONSULT Date of Consult Date of Consult DATE: 12/11/16 TIME: 12:59 Reason for Consult Reason for Consult: RLQ abd pain/diarrhea Current Problem List Problem List Problems Medical Problems: (1) Abdominal pain Status: Acute Current Medications Current Medications Current Medications Sodium Chloride (Iv Sodium Chloride 0.9% 1000ml Bag) 1,000 ml @ 1,000 mls/hr 1X ONCE IV Last administered on 12/11/16 06:59; Start 12/11/16 at 07:00; Stop 12/11/16 at 07:59; Status DC Ondansetron HCl (Zofran) 4 mg 1X ONCE IV Last administered on 12/11/16 06:55 ; Start 12/11/16 at 07:00; Stop 12/11/16 at 07:01; Status DC Hydromorphone HCl (Dilaudid) 1 mg PRN Q15MIN PRN IV/SQ PAIN GREATER THAN 3/10 Last administered on 12/11/16 07:49; Start 12/11/16 at 06:30; Stop 12/12/16 at 06:29 Iohexol (Omnipaque 300 Mg/ml) 75 ml 1X ONCE IV Last administered on 12/11/16 08:28; Start 12/11/16 at 07:00; Stop 12/11/16 at 07:02; Status DC Info (Do NOT chart on this entry -- for MONITORING) 1 each PRN DAILY PRN MC SEE COMMENTS; Start 12/11/16 at 07:15; Stop 12/13/16 at 07:14 Ondansetron HCl (Zofran) 4 mg PRN Q8HRS PRN IV NAUSEA/VOMITING Last administered on 12/11/16 11:12; Start 12/11/16 at 10:00; Stop 12/12/16 at 09:59 Morphine Sulfate 4 mg 4 mg PRN Q2HR PRN IV PAIN Last administered on 12/11/16 11:14; Start 12/11/16 at 10:00; Stop 12/12/16 at 09:59 Sodium Chloride (Iv Sodium Chloride 0.9% 1000ml Bag) 1,000 ml @ 125 mls/hr Q8H IV Last administered on 12/11/16 11:11; Start 12/11/16 at 09:49; Stop at 09:48 Acetaminophen (Tylenol) 650 mg PRN Q4HRS PRN PO FEVER; Start 12/11/16 at 10:00 ; Stop 12/12/16 at 09:59 Active Scripts Active Percocet 7.5-325 Mg Tablet (Oxycodone/Acetaminophen) 1 Each Tablet 1 Tab PO PRN Q6HRS PRN Reported Ranitidine Hcl 300 Mg Tablet 1 Tab PO BID Zoloft (Sertraline Hcl) 100 Mg Tablet 150 Mg PO DAILY Cyclobenzaprine Hcl 10 Mg Tablet 20 Mg PO TID Albuterol Sulfate Hfa Inhaler (Albuterol Sulfate) 8.5 Gm Hfa.aer.ad 2 Puff INH QID Omeprazole 40 Mg Capsule.dr 40 Mg PO DAILY Allergies Allergies: Coded Allergies: Penicillins (Verified Allergy, Intermediate, SWEATING, 04/01/14) cephalexin (Verified Allergy, Intermediate, SWEATING, 04/01/14) dicyclomine (Verified Allergy, Intermediate, 11/04/16) ketorolac (Verified Allergy, Intermediate, 07/26/16) sulfamethoxazole (Verified Allergy, Intermediate, SWEATING, 04/01/14) tramadol (Verified Allergy, Intermediate, SWEATING, 04/01/14) trimethoprim (Verified Allergy, Intermediate, SWEATING, 04/01/14) Vitals VITALS Vital Signs Date Time Temp Pulse Resp B/P Pulse Ox O2 Delivery O2 Flow Rate FiO2 12/11/16 12:22 97.5 77 20 135/79 96 Room Air 97.5 Labs Labs Laboratory Tests Test 12/11/16 05:14 12/11/16 05:25 Urine Collection Type Unknown Urine Color Yellow Urine Clarity Clear Urine pH 5.5 Urine Specific [place] >=1.030 Urine Protein Negativemg/dL (NEG-TRACE) Urine Glucose (UA) Negativemg/dL (NEG) Urine Ketones (Stick) Negativemg/dL (NEG) Urine Blood Negative (NEG) Urine Nitrite Negative (NEG) Urine Bilirubin Negative (NEG) Urine Urobilinogen Dipstick 0.2mg/dL (0.2 mg/dL) Urine Leukocyte Esterase Negative (NEG) Urine RBC Rare/HPF (0-2) Urine WBC Occ/HPF (0-4) Urine Squamous Epithelial Cells Few/LPF Urine Bacteria Few/HPF (0-FEW) Urine Mucus Marked/LPF Urine Test Negative (NEG) White Blood Count 7.5x10^3/uL (4.0-11.0) Red Blood Count 4.51x10^6/uL (3.50-5.40) Hemoglobin 13.4g/dL (12.0-15.5) Hematocrit 39.1% (36.0-47.0) Mean Corpuscular Volume 87fL (79-100) Mean Corpuscular Hemoglobin 30pg (25-35) Mean Corpuscular Hemoglobin Concent 34g/dL (31-37) Red Cell Distribution Width 13.1% (11.5-14.5) Platelet Count 155x10^3/uL (140-400) Neutrophils (%) (Auto) 53% (31-73) Lymphocytes (%) (Auto) 30% (24-48) Monocytes (%) (Auto) 11% (0-9) Eosinophils (%) (Auto) 5% (0-3) Basophils (%) (Auto) 1% (0-3) Neutrophils # (Auto) 4.0x10^3uL (1.8-7.7) Lymphocytes # (Auto) 2.3x10^3/uL (1.0-4.8) Monocytes # (Auto) 0.8x10^3/uL (0.0-1.1) Eosinophils # (Auto) 0.4x10^3/uL (0.0-0.7) Basophils # (Auto) 0.1x10^3/uL (0.0-0.2) Sodium Level 142mmol/L (136-145) Potassium Level 3.7mmol/L (3.5-5.1) Chloride Level 105mmol/L (98-107) Carbon Dioxide Level 26mmol/L (21-32) Anion Gap 11 (6-14) Blood Urea Nitrogen 16mg/dL (7-20) Creatinine 0.9mg/dL (0.6-1.0) Estimated GFR (Cockcroft-Gault) 71.3 BUN/Creatinine Ratio 18 (6-20) Glucose Level 96mg/dL (70-99) Calcium Level 9.2mg/dL (8.5-10.1) Total Bilirubin 0.3mg/dL (0.2-1.0) Aspartate Amino Transf (AST/SGOT) 39U/L (15-37) Alanine Aminotransferase (ALT/SGPT) 82U/L (14-59) Alkaline Phosphatase 105U/L (46-116) Total Protein 7.3g/dL (6.4-8.2) Albumin 3.6g/dL (3.4-5.0) Albumin/Globulin Ratio 1.0 (1.0-1.7) Lipase 155U/L (73-393) Laboratory Tests Test 12/11/16 05:14 12/11/16 05:25 Urine Collection Type Unknown Urine Color Yellow Urine Clarity Clear Urine pH 5.5 Urine Specific [place] >=1.030 Urine Protein Negativemg/dL (NEG-TRACE) Urine Glucose (UA) Negativemg/dL (NEG) Urine Ketones (Stick) Negativemg/dL (NEG) Urine Blood Negative (NEG) Urine Nitrite Negative (NEG) Urine Bilirubin Negative (NEG) Urine Urobilinogen Dipstick 0.2mg/dL (0.2 mg/dL) Urine Leukocyte Esterase Negative (NEG) Urine RBC Rare/HPF (0-2) Urine WBC Occ/HPF (0-4) Urine Squamous Epithelial Cells Few/LPF Urine Bacteria Few/HPF (0-FEW) Urine Mucus Marked/LPF Urine Test Negative (NEG) White Blood Count 7.5x10^3/uL (4.0-11.0) Red Blood Count 4.51x10^6/uL (3.50-5.40) Hemoglobin 13.4g/dL (12.0-15.5) Hematocrit 39.1% (36.0-47.0) Mean Corpuscular Volume 87fL (79-100) Mean Corpuscular Hemoglobin 30pg (25-35) Mean Corpuscular Hemoglobin Concent 34g/dL (31-37) Red Cell Distribution Width 13.1% (11.5-14.5) Platelet Count 155x10^3/uL (140-400) Neutrophils (%) (Auto) 53% (31-73) Lymphocytes (%) (Auto) 30% (24-48) Monocytes (%) (Auto) 11% (0-9) Eosinophils (%) (Auto) 5% (0-3) Basophils (%) (Auto) 1% (0-3) Neutrophils # (Auto) 4.0x10^3uL (1.8-7.7) Lymphocytes # (Auto) 2.3x10^3/uL (1.0-4.8) Monocytes # (Auto) 0.8x10^3/uL (0.0-1.1) Eosinophils # (Auto) 0.4x10^3/uL (0.0-0.7) Basophils # (Auto) 0.1x10^3/uL (0.0-0.2) Sodium Level 142mmol/L (136-145) Potassium Level 3.7mmol/L (3.5-5.1) Chloride Level 105mmol/L (98-107) Carbon Dioxide Level 26mmol/L (21-32) Anion Gap 11 (6-14) Blood Urea Nitrogen 16mg/dL (7-20) Creatinine 0.9mg/dL (0.6-1.0) Estimated GFR (Cockcroft-Gault) 71.3 BUN/Creatinine Ratio 18 (6-20) Glucose Level 96mg/dL (70-99) Calcium Level 9.2mg/dL (8.5-10.1) Total Bilirubin 0.3mg/dL (0.2-1.0) Aspartate Amino Transf (AST/SGOT) 39U/L (15-37) Alanine Aminotransferase (ALT/SGPT) 82U/L (14-59) Alkaline Phosphatase 105U/L (46-116) Total Protein 7.3g/dL (6.4-8.2) Albumin 3.6g/dL (3.4-5.0) Albumin/Globulin Ratio 1.0 (1.0-1.7) Lipase 155U/L (73-393) Assessment/Plan Assessment/Plan RLQ abd pain- with diarrhea, differential includes: IBD- Crohn's, colon cancer, infectious enteritis, Meckels diverticulitis, partial SBO, internal hernia, and/ or chronic appendicitis Plan Sb series to further assess. If unrevealing, colonoscpy to follow after prep possible as o/p. Full note dictated KAY WHEELER MD Dec 11, 2016 13:01
[2016-12-11 15:00] VITALS: BP 130/72
--- NOTE | 2016-12-11 15:28 | PDOC1 ---
History and Physical History of Present Illness History of Present Illness A 36 F with obesity, past hx of renal stones presented with abdominal pain for 3 days, RLQ, and flank regions, similar to her past renal stone pain, dull 13/ 10 at [facility], no radiation, associated with some loose bowels, no hematemesis or hematochezia. no fever,no chills. Past Medical History Past Medical History Past Medical History: Asthma, Bipolar, GERD, Kidney Stone, Pancreatitis, ENLARGED LIVER,hirtuism Past Surgical History: Cholecystectomy, Hysterectomy, Tonsillectomy, CYST REMOVED ON TAILBONE Family History Family History no pancreatitis Social History Smoke: No ALCOHOL: rare Drugs: None Current Problem List Problem List Problems Medical Problems: (1) Abdominal pain Status: Acute Current Medications Current Medications Current Medications Medications (Trade) Dose Ordered Sig/Rod Start Time Stop Time Status Last Admin Dose Admin Acetaminophen (Tylenol) 650 mg PRN Q4HRS PRN 12/11/16 10:00 12/12/16 09:59 Hydromorphone HCl (Dilaudid) 1 mg PRN Q15MIN PRN 12/11/16 06:30 12/12/16 06:29 12/11/16 07:49 1 MG Info (Do NOT chart on this entry -- for MONITORING) 1 each PRN DAILY PRN 12/11/16 07:15 12/13/16 07:14 Iohexol (Omnipaque 300 Mg/ml) 75 ml 1X ONCE 12/11/16 07:00 12/11/16 07:02 DC 12/11/16 08:28 75 ML Morphine Sulfate 4 mg 4 mg PRN Q2HR PRN 12/11/16 10:00 12/12/16 09:59 12/11/16 14:23 4 MG Ondansetron HCl (Zofran) 4 mg PRN Q8HRS PRN 12/11/16 10:00 12/12/16 09:59 12/11/16 11:12 4 MG Sodium Chloride (Iv Sodium Chloride 0.9% 1000ml Bag) 1,000 ml @ 125 mls/hr Q8H 12/11/16 09:49 12/12/16 09:48 12/11/16 11:11 125 MLS/HR Allergies Allergies Allergies Coded Allergies Type Severity Reaction Last Updated Verified Penicillins Allergy Intermediate SWEATING 04/01/14 Yes cephalexin Allergy Intermediate SWEATING 04/01/14 Yes dicyclomine Allergy Intermediate 11/04/16 Yes ketorolac Allergy Intermediate 07/26/16 Yes sulfamethoxazole Allergy Intermediate SWEATING 04/01/14 Yes tramadol Allergy Intermediate SWEATING 04/01/14 Yes trimethoprim Allergy Intermediate SWEATING 04/01/14 Yes ROS Review of System CONSTITUTIONAL: No fever or chills EYES: No recent changes SKIN: No rash or itching CARDIOVASCULAR: No chest pain, syncope, palpitations, or edema RESPIRATORY: No SOB or cough GASTROINTESTINAL: No nausea, vomiting or but abdominal pain NEUROLOGICAL: No headaches or weakness ENDOCRINE: No cold or heat intolerance GENITOURINARY: No urgency or frequency of urination MUSCULOSKELETAL: No back pain or joint pain LYMPHATICS: No enlarged lymph nodes PSYCHIATRIC: No anxiety or depression Physical Exam Physical Exam GEN.: No apparent distress. Alert and oriented. obese. HEENT: Head is normocephalic, atraumatic NECK: Supple. No JVD LUNGS: Clear to auscultation. HEART: RRR, S1, S2 present. Peripheral pulses intact ABDOMEN: Soft, nontender. Positive bowel sounds. EXTREMITIES: Without any cyanosis. NEUROLOGIC: Normal speech, normal tone PSYCHIATRIC: Normal affect, normal mood. SKIN: Vitals Vitals Vital Signs Date Time Temp Pulse Resp B/P Pulse Ox O2 Delivery O2 Flow Rate FiO2 12/11/16 15:00 97.6 76 20 130/72 93 Room Air 97.6 Labs Labs Laboratory Tests Test 12/11/16 05:14 12/11/16 05:25 Urine Collection Type Unknown Urine Color Yellow Urine Clarity Clear Urine pH 5.5 [address] [place] >=1.030 Urine Protein Negativemg/dL (NEG-TRACE) Urine Glucose (UA) Negativemg/dL (NEG) Urine Ketones (Stick) Negativemg/dL (NEG) Urine Blood Negative (NEG) Urine Nitrite Negative (NEG) Urine Bilirubin Negative (NEG) Urine Urobilinogen Dipstick 0.2mg/dL (0.2 mg/dL) Urine Leukocyte Esterase Negative (NEG) Urine RBC Rare/HPF (0-2) Urine WBC Occ/HPF (0-4) Urine Squamous Epithelial Cells Few/LPF Urine Bacteria Few/HPF (0-FEW) Urine Mucus Marked/LPF Urine Test Negative (NEG) White Blood Count 7.5x10^3/uL (4.0-11.0) Red Blood Count 4.51x10^6/uL (3.50-5.40) Hemoglobin 13.4g/dL (12.0-15.5) Hematocrit 39.1% (36.0-47.0) Mean Corpuscular Volume 87fL (79-100) Mean Corpuscular Hemoglobin 30pg (25-35) Mean Corpuscular Hemoglobin Concent 34g/dL (31-37) Red Cell Distribution Width 13.1% (11.5-14.5) Platelet Count 155x10^3/uL (140-400) Neutrophils (%) (Auto) 53% (31-73) Lymphocytes (%) (Auto) 30% (24-48) Monocytes (%) (Auto) 11% (0-9) Eosinophils (%) (Auto) 5% (0-3) Basophils (%) (Auto) 1% (0-3) Neutrophils # (Auto) 4.0x10^3uL (1.8-7.7) Lymphocytes # (Auto) 2.3x10^3/uL (1.0-4.8) Monocytes # (Auto) 0.8x10^3/uL (0.0-1.1) Eosinophils # (Auto) 0.4x10^3/uL (0.0-0.7) Basophils # (Auto) 0.1x10^3/uL (0.0-0.2) Sodium Level 142mmol/L (136-145) Potassium Level 3.7mmol/L (3.5-5.1) Chloride Level 105mmol/L (98-107) Carbon Dioxide Level 26mmol/L (21-32) Anion Gap 11 (6-14) Blood Urea Nitrogen 16mg/dL (7-20) Creatinine 0.9mg/dL (0.6-1.0) Estimated GFR (Cockcroft-Gault) 71.3 BUN/Creatinine Ratio 18 (6-20) Glucose Level 96mg/dL (70-99) Calcium Level 9.2mg/dL (8.5-10.1) Total Bilirubin 0.3mg/dL (0.2-1.0) Aspartate Amino Transf (AST/SGOT) 39U/L (15-37) Alanine Aminotransferase (ALT/SGPT) 82U/L (14-59) Alkaline Phosphatase 105U/L (46-116) Total Protein 7.3g/dL (6.4-8.2) Albumin 3.6g/dL (3.4-5.0) Albumin/Globulin Ratio 1.0 (1.0-1.7) Lipase 155U/L (73-393) Laboratory Tests Test 12/11/16 05:14 12/11/16 05:25 Urine Collection Type Unknown Urine Color Yellow Urine Clarity Clear Urine pH 5.[address] [place] >=1.030 Urine Protein Negativemg/dL (NEG-TRACE) Urine Glucose (UA) Negativemg/dL (NEG) Urine Ketones (Stick) Negativemg/dL (NEG) Urine Blood Negative (NEG) Urine Nitrite Negative (NEG) Urine Bilirubin Negative (NEG) Urine Urobilinogen Dipstick 0.2mg/dL (0.2 mg/dL) Urine Leukocyte Esterase Negative (NEG) Urine RBC Rare/HPF (0-2) Urine WBC Occ/HPF (0-4) Urine Squamous Epithelial Cells Few/LPF Urine Bacteria Few/HPF (0-FEW) Urine Mucus Marked/LPF Urine Test Negative (NEG) White Blood Count 7.5x10^3/uL (4.0-11.0) Red Blood Count 4.51x10^6/uL (3.50-5.40) Hemoglobin 13.4g/dL (12.0-15.5) Hematocrit 39.1% (36.0-47.0) Mean Corpuscular Volume 87fL (79-100) Mean Corpuscular Hemoglobin 30pg (25-35) Mean Corpuscular Hemoglobin Concent 34g/dL (31-37) Red Cell Distribution Width 13.1% (11.5-14.5) Platelet Count 155x10^3/uL (140-400) Neutrophils (%) (Auto) 53% (31-73) Lymphocytes (%) (Auto) 30% (24-48) Monocytes (%) (Auto) 11% (0-9) Eosinophils (%) (Auto) 5% (0-3) Basophils (%) (Auto) 1% (0-3) Neutrophils # (Auto) 4.0x10^3uL (1.8-7.7) Lymphocytes # (Auto) 2.3x10^3/uL (1.0-4.8) Monocytes # (Auto) 0.8x10^3/uL (0.0-1.1) Eosinophils # (Auto) 0.4x10^3/uL (0.0-0.7) Basophils # (Auto) 0.1x10^3/uL (0.0-0.2) Sodium Level 142mmol/L (136-145) Potassium Level 3.7mmol/L (3.5-5.1) Chloride Level 105mmol/L (98-107) Carbon Dioxide Level 26mmol/L (21-32) Anion Gap 11 (6-14) Blood Urea Nitrogen 16mg/dL (7-20) Creatinine 0.9mg/dL (0.6-1.0) Estimated GFR (Cockcroft-Gault) 71.3 BUN/Creatinine Ratio 18 (6-20) Glucose Level 96mg/dL (70-99) Calcium Level 9.2mg/dL (8.5-10.1) Total Bilirubin 0.3mg/dL (0.2-1.0) Aspartate Amino Transf (AST/SGOT) 39U/L (15-37) Alanine Aminotransferase (ALT/SGPT) 82U/L (14-59) Alkaline Phosphatase 105U/L (46-116) Total Protein 7.3g/dL (6.4-8.2) Albumin 3.6g/dL (3.4-5.0) Albumin/Globulin Ratio 1.0 (1.0-1.7) Lipase 155U/L (73-393) VTE Prophylaxis Ordered VTE Prophylaxis Devices: No VTE Pharmacological Prophylaxi: Yes Assessment/Plan Assessment/Plan RLQ pain, possible differential appendicitis, renal stones, SBO, obesity Depression Anxiety Plan Pain control with IV morphine NPO CT abdomen no acute findings cbc.bmp reviewed, GI consultation PRN Zofran IV hydration home medications reviewed. BRITANY LEDESMA MD Dec 11, 2016 15:28
[2016-12-11] MEDS ORDERED: hydrALAZINE 20 MG/ML VIAL. IVP PRN (15:30)
[2016-12-11] MEDS ORDERED: ALBUTEROL SULFATE 2.5 MG/3 ML NEBU. NEB PRN (15:30)
[2016-12-11 19:00] VITALS: BP 112/62
[2016-12-11] MEDS: MORPHINE SULFATE 2 MG/ML DISP.SYRIN. IV PRN (19:29)
[2016-12-11 22:33] VITALS: BP 142/87
[2016-12-11] MEDS: CYCLOBENZAPRINE 10 MG TABLET. PO SCH (23:53)
[2016-12-12 02:32] VITALS: BP 122/61
[2016-12-12] MEDS: IV NORMAL SALINE 1000ML BAG 1,000 ML IV SCH (05:08)
[2016-12-12] MEDS: ALBUTEROL SULFATE 2.5 MG/3 ML NEBU. NEB SCH ×2 (06:01→12:00)
[2016-12-12 06:21] LABS: BASO % 1 % (0-3); EOS % 6 % (0-3); HEMATOCRIT 38.7 % (36.0-47.0); HEMOGLOBIN 12.8 g/dL (12.0-15.5); LYMPH # 1.5 x10^3/uL (1.0-4.8); LYMPH % 26 % (24-48); MEAN CORPUSCULAR HEMOGLOBIN 29 pg (25-35); MEAN CORPUSCULAR HGB CONC 33 g/dL (31-37); MEAN CORPUSCULAR VOLUME 89 fL (79-100); MONO % 11 % (0-9); NEUT % 57 % (31-73); PLATELET COUNT 135 x10^3/uL (140-400); RED BLOOD COUNT 4.34 x10^6/uL (3.50-5.40); RED CELL DISTRIBUTION WIDTH 13.1 % (11.5-14.5); WHITE BLOOD COUNT 5.8 x10^3/uL (4.0-11.0)
[2016-12-12] MEDS: MORPHINE SULFATE 2 MG/ML DISP.SYRIN. IV PRN (06:32)
[2016-12-12 06:37] LABS: CALCIUM 8.6 mg/dL (8.5-10.1); CREATININE 0.8 mg/dL (0.6-1.0); GFR 81.6
[2016-12-12 07:00] VITALS: BP 130/80
[2016-12-12] MEDS ORDERED: PANTOPRAZOLE 40 MG TABLET.DR. PO SCH (07:30)
[2016-12-12] MEDS ORDERED: SERTRALINE 50 MG TABLET. PO SCH (09:00)
[2016-12-12] MEDS ORDERED: ALBUTEROL SULFATE 8GM INHALER. INH SCH (09:00)
[2016-12-12] MEDS: CYCLOBENZAPRINE 10 MG TABLET. PO SCH ×2 (09:00→13:44)
[2016-12-12 11:00] VITALS: BP 144/86
--- NOTE | 2016-12-12 13:11 | PDOC ---
PROGRESS NOTES Chief Complaint Chief Complaint CC: abdominal pain RLQ pain, Resolved, unclear etiology. obesity Depression Anxiety Plan Pain control advance diet GI recommendations. CT abdomen no acute findings cbc.bmp reviewed, GI consultation PRN Zofran IV hydration home medications reviewed. Vitals Vitals Vital Signs Date Time Temp Pulse Resp B/P Pulse Ox O2 Delivery O2 Flow Rate FiO2 12/12/16 11:00 95.5 72 20 144/86 95 Room Air 95.5 Physical Exam General: Alert, Oriented X3 Heart: Normal S1, Normal S2 Lungs: Clear Abdomen: Normal bowel sounds, Soft Extremities: No clubbing Labs LABS Laboratory Tests Test 12/12/16 05:50 White Blood Count 5.8x10^3/uL (4.0-11.0) Red Blood Count 4.34x10^6/uL (3.50-5.40) Hemoglobin 12.8g/dL (12.0-15.5) Hematocrit 38.7% (36.0-47.0) Mean Corpuscular Volume 89fL (79-100) Mean Corpuscular Hemoglobin 29pg (25-35) Mean Corpuscular Hemoglobin Concent 33g/dL (31-37) Red Cell Distribution Width 13.1% (11.5-14.5) Platelet Count 135x10^3/uL (140-400) Neutrophils (%) (Auto) 57% (31-73) Lymphocytes (%) (Auto) 26% (24-48) Monocytes (%) (Auto) 11% (0-9) Eosinophils (%) (Auto) 6% (0-3) Basophils (%) (Auto) 1% (0-3) Neutrophils # (Auto) 3.3x10^3uL (1.8-7.7) Lymphocytes # (Auto) 1.5x10^3/uL (1.0-4.8) Monocytes # (Auto) 0.6x10^3/uL (0.0-1.1) Eosinophils # (Auto) 0.3x10^3/uL (0.0-0.7) Basophils # (Auto) 0.0x10^3/uL (0.0-0.2) Sodium Level 142mmol/L (136-145) Potassium Level 4.0mmol/L (3.5-5.1) Chloride Level 107mmol/L (98-107) Carbon Dioxide Level 27mmol/L (21-32) Anion Gap 8 (6-14) Blood Urea Nitrogen 11mg/dL (7-20) Creatinine 0.8mg/dL (0.6-1.0) Estimated GFR (Cockcroft-Gault) 81.6 Glucose Level 91mg/dL (70-99) Calcium Level 8.6mg/dL (8.5-10.1) Assessment and Plan Assessmemt and Plan Problems Medical Problems: (1) Abdominal pain Status: Acute Problems: Comment Review of Relevant I have reviewed the following items dameon (where applicable) has been applied. Labs Laboratory Tests Test 12/11/16 05:14 12/11/16 05:25 12/12/16 05:50 Urine Collection Type Unknown Urine Color Yellow Urine Clarity Clear Urine pH 5.5 Urine Specific [place] >=1.030 Urine Protein Negativemg/dL (NEG-TRACE) Urine Glucose (UA) Negativemg/dL (NEG) Urine Ketones (Stick) Negativemg/dL (NEG) Urine Blood Negative (NEG) Urine Nitrite Negative (NEG) Urine Bilirubin Negative (NEG) Urine Urobilinogen Dipstick 0.2mg/dL (0.2 mg/dL) Urine Leukocyte Esterase Negative (NEG) Urine RBC Rare/HPF (0-2) Urine WBC Occ/HPF (0-4) Urine Squamous Epithelial Cells Few/LPF Urine Bacteria Few/HPF (0-FEW) Urine Mucus Marked/LPF Urine Test Negative (NEG) White Blood Count 7.5x10^3/uL (4.0-11.0) 5.8x10^3/uL (4.0-11.0) Red Blood Count 4.51x10^6/uL (3.50-5.40) 4.34x10^6/uL (3.50-5.40) Hemoglobin 13.4g/dL (12.0-15.5) 12.8g/dL (12.0-15.5) Hematocrit 39.1% (36.0-47.0) 38.7% (36.0-47.0) Mean Corpuscular Volume 87fL (79-100) 89fL (79-100) Mean Corpuscular Hemoglobin 30pg (25-35) 29pg (25-35) Mean Corpuscular Hemoglobin Concent 34g/dL (31-37) 33g/dL (31-37) Red Cell Distribution Width 13.1% (11.5-14.5) 13.1% (11.5-14.5) Platelet Count 155x10^3/uL (140-400) 135x10^3/uL (140-400) Neutrophils (%) (Auto) 53% (31-73) 57% (31-73) Lymphocytes (%) (Auto) 30% (24-48) 26% (24-48) Monocytes (%) (Auto) 11% (0-9) 11% (0-9) Eosinophils (%) (Auto) 5% (0-3) 6% (0-3) Basophils (%) (Auto) 1% (0-3) 1% (0-3) Neutrophils # (Auto) 4.0x10^3uL (1.8-7.7) 3.3x10^3uL (1.8-7.7) Lymphocytes # (Auto) 2.3x10^3/uL (1.0-4.8) 1.5x10^3/uL (1.0-4.8) Monocytes # (Auto) 0.8x10^3/uL (0.0-1.1) 0.6x10^3/uL (0.0-1.1) Eosinophils # (Auto) 0.4x10^3/uL (0.0-0.7) 0.3x10^3/uL (0.0-0.7) Basophils # (Auto) 0.1x10^3/uL (0.0-0.2) 0.0x10^3/uL (0.0-0.2) Sodium Level 142mmol/L (136-145) 142mmol/L (136-145) Potassium Level 3.7mmol/L (3.5-5.1) 4.0mmol/L (3.5-5.1) Chloride Level 105mmol/L (98-107) 107mmol/L (98-107) Carbon Dioxide Level 26mmol/L (21-32) 27mmol/L (21-32) Anion Gap 11 (6-14) 8 (6-14) Blood Urea Nitrogen 16mg/dL (7-20) 11mg/dL (7-20) Creatinine 0.9mg/dL (0.6-1.0) 0.8mg/dL (0.6-1.0) Estimated GFR (Cockcroft-Gault) 71.3 81.6 BUN/Creatinine Ratio 18 (6-20) Glucose Level 96mg/dL (70-99) 91mg/dL (70-99) Calcium Level 9.2mg/dL (8.5-10.1) 8.6mg/dL (8.5-10.1) Total Bilirubin 0.3mg/dL (0.2-1.0) Aspartate Amino Transf (AST/SGOT) 39U/L (15-37) Alanine Aminotransferase (ALT/SGPT) 82U/L (14-59) Alkaline Phosphatase 105U/L (46-116) Total Protein 7.3g/dL (6.4-8.2) Albumin 3.6g/dL (3.4-5.0) Albumin/Globulin Ratio 1.0 (1.0-1.7) Lipase 155U/L (73-393) Laboratory Tests Test 12/12/16 05:50 White Blood Count 5.8x10^3/uL (4.0-11.0) Red Blood Count 4.34x10^6/uL (3.50-5.40) Hemoglobin 12.8g/dL (12.0-15.5) Hematocrit 38.7% (36.0-47.0) Mean Corpuscular Volume 89fL (79-100) Mean Corpuscular Hemoglobin 29pg (25-35) Mean Corpuscular Hemoglobin Concent 33g/dL (31-37) Red Cell Distribution Width 13.1% (11.5-14.5) Platelet Count 135x10^3/uL (140-400) Neutrophils (%) (Auto) 57% (31-73) Lymphocytes (%) (Auto) 26% (24-48) Monocytes (%) (Auto) 11% (0-9) Eosinophils (%) (Auto) 6% (0-3) Basophils (%) (Auto) 1% (0-3) Neutrophils # (Auto) 3.3x10^3uL (1.8-7.7) Lymphocytes # (Auto) 1.5x10^3/uL (1.0-4.8) Monocytes # (Auto) 0.6x10^3/uL (0.0-1.1) Eosinophils # (Auto) 0.3x10^3/uL (0.0-0.7) Basophils # (Auto) 0.0x10^3/uL (0.0-0.2) Sodium Level 142mmol/L (136-145) Potassium Level 4.0mmol/L (3.5-5.1) Chloride Level 107mmol/L (98-107) Carbon Dioxide Level 27mmol/L (21-32) Anion Gap 8 (6-14) Blood Urea Nitrogen 11mg/dL (7-20) Creatinine 0.8mg/dL (0.6-1.0) Estimated GFR (Cockcroft-Gault) 81.6 Glucose Level 91mg/dL (70-99) Calcium Level 8.6mg/dL (8.5-10.1) Medications Current Medications Sodium Chloride (Iv Sodium Chloride 0.9% 1000ml Bag) 1,000 ml @ 1,000 mls/hr 1X ONCE IV Last administered on 12/11/16 06:59; Start 12/11/16 at 07:00; Stop 12/11/16 at 07:59; Status DC Ondansetron HCl (Zofran) 4 mg 1X ONCE IV Last administered on 12/11/16 06:55 ; Start 12/11/16 at 07:00; Stop 12/11/16 at 07:01; Status DC Hydromorphone HCl (Dilaudid) 1 mg PRN Q15MIN PRN IV/SQ PAIN GREATER THAN 3/10 Last administered on 12/11/16 07:49; Start 12/11/16 at 06:30; Stop 12/11/16 at 22:06; Status DC Iohexol (Omnipaque 300 Mg/ml) 75 ml 1X ONCE IV Last administered on 12/11/16 08:28; Start 12/11/16 at 07:00; Stop 12/11/16 at 07:02; Status DC Info (Do NOT chart on this entry -- for MONITORING) 1 each PRN DAILY PRN MC SEE COMMENTS; Start 12/11/16 at 07:15; Stop 12/13/16 at 07:14 Ondansetron HCl (Zofran) 4 mg PRN Q8HRS PRN IV NAUSEA/VOMITING Last administered on 12/11/16 11:12; Start 12/11/16 at 10:00; Stop 12/11/16 at 15:32 ; Status DC Morphine Sulfate 4 mg 4 mg PRN Q2HR PRN IV PAIN Last administered on 12/11/16 14:23; Start 12/11/16 at 10:00; Stop 12/11/16 at 15:38; Status DC Sodium Chloride (Iv Sodium Chloride 0.9% 1000ml Bag) 1,000 ml @ 125 mls/hr Q8H IV Last administered on 12/12/16 05:08; Start 12/11/16 at 09:49; Stop at 09:48; Status DC Acetaminophen (Tylenol) 650 mg PRN Q4HRS PRN PO FEVER; Start 12/11/16 at 10:00 ; Stop 12/11/16 at 15:31; Status DC Acetaminophen (Tylenol) 325 mg PRN Q6HRS PRN PO MILD PAIN / TEMP; Start at 15:30 Hydralazine HCl (Apresoline) 10 mg PRN Q4HRS PRN IVP ELEVATED BP, SEE COMMENTS ; Start 12/11/16 at 15:30 Ondansetron HCl (Zofran) 4 mg PRN Q8HRS PRN IV NAUSEA/VOMITING Last administered on 12/12/16 08:55; Start 12/11/16 at 15:30 Albuterol Sulfate (Ventolin Neb Soln) 2.5 mg PRN Q4HRS PRN NEB SHORTNESS OF BREATH; Start 12/11/16 at 15:30 Morphine Sulfate 2 mg PRN Q2HR PRN IV PAIN Last administered on 12/12/16 06:32 ; Start 12/11/16 at 15:45 Albuterol Sulfate (Ventolin Hfa) 2 puff QID INH ; Start 12/12/16 at 09:00; Status UNV Cyclobenzaprine HCl (Flexeril) 10 mg TID PO Last administered on 12/11/16 23: 53; Start 12/11/16 at 23:00 Pantoprazole Sodium (Protonix) 40 mg DAILYAC PO ; Start 12/12/16 at 07:30 Sertraline HCl (Zoloft) 150 mg DAILY PO ; Start 12/12/16 at 09:00 Albuterol Sulfate (Ventolin Neb Soln) 2.5 mg RTQID NEB ; Start 12/12/16 at 08:00 Active Scripts Active Percocet 7.5-325 Mg Tablet (Oxycodone/Acetaminophen) 1 Each Tablet 1 Tab PO PRN Q6HRS PRN Reported Ranitidine Hcl 300 Mg Tablet 1 Tab PO BID Zoloft (Sertraline Hcl) 100 Mg Tablet 150 Mg PO DAILY Cyclobenzaprine Hcl 10 Mg Tablet 20 Mg PO TID Albuterol Sulfate Hfa Inhaler (Albuterol Sulfate) 8.5 Gm Hfa.aer.ad 2 Puff INH QID Omeprazole 40 Mg Capsule.dr 40 Mg PO DAILY Vitals/I & O Vital Sign - Last 24 Hours 12/11/16 12/11/16 12/11/16 12/11/16 13:35 13:35 15:00 15:30 Temp 97.6 97.6 Pulse 76 Resp 20 B/P 130/72 Pulse Ox 96 96 93 O2 Delivery Room Air Room Air 12/11/16 12/11/16 12/11/16 12/11/16 19:00 19:29 19:32 20:00 Temp 97.7 97.7 Pulse 72 Resp 18 19 16 B/P 112/62 Pulse Ox 93 93 O2 Delivery Room Air Room Air Room Air Room Air 12/11/16 12/12/16 12/12/16 12/12/16 22:33 02:32 06:32 07:00 Temp 97.7 97.4 97.6 97.7 97.4 97.6 Pulse 75 82 75 Resp 19 19 18 19 B/P 142/87 122/61 130/80 Pulse Ox 94 94 94 94 O2 Delivery Room Air Room Air Room Air Room Air 12/12/16 11:00 Temp 95.5 95.5 Pulse 72 Resp 20 B/P 144/86 Pulse Ox 95 O2 Delivery Room Air Intake and Output 12/11/16 12/11/16 12/12/16 15:00 23:00 07:00 Intake Total 1523 ml 400 ml Balance 1523 ml 400 ml BRITANY LEDESMA MD Dec 12, 2016 13:11
--- NOTE | 2016-12-12 13:56 | PDOC ---
G I PROGRESS NOTE Subjective No real complaints. Some right-sided pain persists. Physical Exam Lungs clear. RRR Abdomen soft, not tender nor distended. Some apparent muscular tenderness right flank. Review of Relevant I have reviewed the following items dameon (where applicable) has been applied. Labs Laboratory Tests Test 12/11/16 05:14 12/11/16 05:25 12/12/16 05:50 Urine Collection Type Unknown Urine Color Yellow Urine Clarity Clear Urine pH 5.5 Urine Specific [place] >=1.030 Urine Protein Negativemg/dL (NEG-TRACE) Urine Glucose (UA) Negativemg/dL (NEG) Urine Ketones (Stick) Negativemg/dL (NEG) Urine Blood Negative (NEG) Urine Nitrite Negative (NEG) Urine Bilirubin Negative (NEG) Urine Urobilinogen Dipstick 0.2mg/dL (0.2 mg/dL) Urine Leukocyte Esterase Negative (NEG) Urine RBC Rare/HPF (0-2) Urine WBC Occ/HPF (0-4) Urine Squamous Epithelial Cells Few/LPF Urine Bacteria Few/HPF (0-FEW) Urine Mucus Marked/LPF Urine Test Negative (NEG) White Blood Count 7.5x10^3/uL (4.0-11.0) 5.8x10^3/uL (4.0-11.0) Red Blood Count 4.51x10^6/uL (3.50-5.40) 4.34x10^6/uL (3.50-5.40) Hemoglobin 13.4g/dL (12.0-15.5) 12.8g/dL (12.0-15.5) Hematocrit 39.1% (36.0-47.0) 38.7% (36.0-47.0) Mean Corpuscular Volume 87fL (79-100) 89fL (79-100) Mean Corpuscular Hemoglobin 30pg (25-35) 29pg (25-35) Mean Corpuscular Hemoglobin Concent 34g/dL (31-37) 33g/dL (31-37) Red Cell Distribution Width 13.1% (11.5-14.5) 13.1% (11.5-14.5) Platelet Count 155x10^3/uL (140-400) 135x10^3/uL (140-400) Neutrophils (%) (Auto) 53% (31-73) 57% (31-73) Lymphocytes (%) (Auto) 30% (24-48) 26% (24-48) Monocytes (%) (Auto) 11% (0-9) 11% (0-9) Eosinophils (%) (Auto) 5% (0-3) 6% (0-3) Basophils (%) (Auto) 1% (0-3) 1% (0-3) Neutrophils # (Auto) 4.0x10^3uL (1.8-7.7) 3.3x10^3uL (1.8-7.7) Lymphocytes # (Auto) 2.3x10^3/uL (1.0-4.8) 1.5x10^3/uL (1.0-4.8) Monocytes # (Auto) 0.8x10^3/uL (0.0-1.1) 0.6x10^3/uL (0.0-1.1) Eosinophils # (Auto) 0.4x10^3/uL (0.0-0.7) 0.3x10^3/uL (0.0-0.7) Basophils # (Auto) 0.1x10^3/uL (0.0-0.2) 0.0x10^3/uL (0.0-0.2) Sodium Level 142mmol/L (136-145) 142mmol/L (136-145) Potassium Level 3.7mmol/L (3.5-5.1) 4.0mmol/L (3.5-5.1) Chloride Level 105mmol/L (98-107) 107mmol/L (98-107) Carbon Dioxide Level 26mmol/L (21-32) 27mmol/L (21-32) Anion Gap 11 (6-14) 8 (6-14) Blood Urea Nitrogen 16mg/dL (7-20) 11mg/dL (7-20) Creatinine 0.9mg/dL (0.6-1.0) 0.8mg/dL (0.6-1.0) Estimated GFR (Cockcroft-Gault) 71.3 81.6 BUN/Creatinine Ratio 18 (6-20) Glucose Level 96mg/dL (70-99) 91mg/dL (70-99) Calcium Level 9.2mg/dL (8.5-10.1) 8.6mg/dL (8.5-10.1) Total Bilirubin 0.3mg/dL (0.2-1.0) Aspartate Amino Transf (AST/SGOT) 39U/L (15-37) Alanine Aminotransferase (ALT/SGPT) 82U/L (14-59) Alkaline Phosphatase 105U/L (46-116) Total Protein 7.3g/dL (6.4-8.2) Albumin 3.6g/dL (3.4-5.0) Albumin/Globulin Ratio 1.0 (1.0-1.7) Lipase 155U/L (73-393) Laboratory Tests Test 12/12/16 05:50 White Blood Count 5.8x10^3/uL (4.0-11.0) Red Blood Count 4.34x10^6/uL (3.50-5.40) Hemoglobin 12.8g/dL (12.0-15.5) Hematocrit 38.7% (36.0-47.0) Mean Corpuscular Volume 89fL (79-100) Mean Corpuscular Hemoglobin 29pg (25-35) Mean Corpuscular Hemoglobin Concent 33g/dL (31-37) Red Cell Distribution Width 13.1% (11.5-14.5) Platelet Count 135x10^3/uL (140-400) Neutrophils (%) (Auto) 57% (31-73) Lymphocytes (%) (Auto) 26% (24-48) Monocytes (%) (Auto) 11% (0-9) Eosinophils (%) (Auto) 6% (0-3) Basophils (%) (Auto) 1% (0-3) Neutrophils # (Auto) 3.3x10^3uL (1.8-7.7) Lymphocytes # (Auto) 1.5x10^3/uL (1.0-4.8) Monocytes # (Auto) 0.6x10^3/uL (0.0-1.1) Eosinophils # (Auto) 0.3x10^3/uL (0.0-0.7) Basophils # (Auto) 0.0x10^3/uL (0.0-0.2) Sodium Level 142mmol/L (136-145) Potassium Level 4.0mmol/L (3.5-5.1) Chloride Level 107mmol/L (98-107) Carbon Dioxide Level 27mmol/L (21-32) Anion Gap 8 (6-14) Blood Urea Nitrogen 11mg/dL (7-20) Creatinine 0.8mg/dL (0.6-1.0) Estimated GFR (Cockcroft-Gault) 81.6 Glucose Level 91mg/dL (70-99) Calcium Level 8.6mg/dL (8.5-10.1) Medications Current Medications Sodium Chloride (Iv Sodium Chloride 0.9% 1000ml Bag) 1,000 ml @ 1,000 mls/hr 1X ONCE IV Last administered on 12/11/16 06:59; Start 12/11/16 at 07:00; Stop 12/11/16 at 07:59; Status DC Ondansetron HCl (Zofran) 4 mg 1X ONCE IV Last administered on 12/11/16 06:55 ; Start 12/11/16 at 07:00; Stop 12/11/16 at 07:01; Status DC Hydromorphone HCl (Dilaudid) 1 mg PRN Q15MIN PRN IV/SQ PAIN GREATER THAN 3/10 Last administered on 12/11/16 07:49; Start 12/11/16 at 06:30; Stop 12/11/16 at 22:06; Status DC Iohexol (Omnipaque 300 Mg/ml) 75 ml 1X ONCE IV Last administered on 12/11/16 08:28; Start 12/11/16 at 07:00; Stop 12/11/16 at 07:02; Status DC Info (Do NOT chart on this entry -- for MONITORING) 1 each PRN DAILY PRN MC SEE COMMENTS; Start 12/11/16 at 07:15; Stop 12/13/16 at 07:14 Ondansetron HCl (Zofran) 4 mg PRN Q8HRS PRN IV NAUSEA/VOMITING Last administered on 12/11/16 11:12; Start 12/11/16 at 10:00; Stop 12/11/16 at 15:32 ; Status DC Morphine Sulfate 4 mg 4 mg PRN Q2HR PRN IV PAIN Last administered on 12/11/16 14:23; Start 12/11/16 at 10:00; Stop 12/11/16 at 15:38; Status DC Sodium Chloride (Iv Sodium Chloride 0.9% 1000ml Bag) 1,000 ml @ 125 mls/hr Q8H IV Last administered on 12/12/16 05:08; Start 12/11/16 at 09:49; Stop at 09:48; Status DC Acetaminophen (Tylenol) 650 mg PRN Q4HRS PRN PO FEVER; Start 12/11/16 at 10:00 ; Stop 12/11/16 at 15:31; Status DC Acetaminophen (Tylenol) 325 mg PRN Q6HRS PRN PO MILD PAIN / TEMP; Start at 15:30 Hydralazine HCl (Apresoline) 10 mg PRN Q4HRS PRN IVP ELEVATED BP, SEE COMMENTS ; Start 12/11/16 at 15:30 Ondansetron HCl (Zofran) 4 mg PRN Q8HRS PRN IV NAUSEA/VOMITING Last administered on 12/12/16 08:55; Start 12/11/16 at 15:30 Albuterol Sulfate (Ventolin Neb Soln) 2.5 mg PRN Q4HRS PRN NEB SHORTNESS OF BREATH; Start 12/11/16 at 15:30 Morphine Sulfate 2 mg PRN Q2HR PRN IV PAIN Last administered on 12/12/16 06:32 ; Start 12/11/16 at 15:45 Albuterol Sulfate (Ventolin Hfa) 2 puff QID INH ; Start 12/12/16 at 09:00; Status UNV Cyclobenzaprine HCl (Flexeril) 10 mg TID PO Last administered on 12/12/16 13: 44; Start 12/11/16 at 23:00 Pantoprazole Sodium (Protonix) 40 mg DAILYAC PO Last administered on 12/12/16 13:44; Start 12/12/16 at 07:30 Sertraline HCl (Zoloft) 150 mg DAILY PO Last administered on 12/12/16 13:44; Start 12/12/16 at 09:00 Albuterol Sulfate (Ventolin Neb Soln) 2.5 mg RTQID NEB ; Start 4/15/17 at 08:00 Active Scripts Active Percocet 7.5-325 Mg Tablet (Oxycodone/Acetaminophen) 1 Each Tablet 1 Tab PO PRN Q6HRS PRN Reported Ranitidine Hcl 300 Mg Tablet 1 Tab PO BID Zoloft (Sertraline Hcl) 100 Mg Tablet 150 Mg PO DAILY Cyclobenzaprine Hcl 10 Mg Tablet 20 Mg PO TID Albuterol Sulfate Hfa Inhaler (Albuterol Sulfate) 8.5 Gm Hfa.aer.ad 2 Puff INH QID Omeprazole 40 Mg Capsule.dr 40 Mg PO DAILY Vitals/I & O Vital Sign - Last 24 Hours 12/11/16 12/11/16 12/11/16 12/11/16 15:00 15:30 19:00 19:29 Temp 97.6 97.7 97.6 97.7 Pulse 76 72 Resp 20 18 19 B/P 130/72 112/62 Pulse Ox 93 93 93 O2 Delivery Room Air Room Air Room Air Room Air 12/11/16 12/11/16 12/11/16 12/12/16 19:32 20:00 22:33 02:32 Temp 97.7 97.4 97.7 97.4 Pulse 75 82 Resp 16 19 19 B/P 142/87 122/61 Pulse Ox 94 94 O2 Delivery Room Air Room Air Room Air Room Air 12/12/16 12/12/16 12/12/16 06:32 07:00 11:00 Temp 97.6 95.5 97.6 95.5 Pulse 75 72 Resp 18 19 20 B/P 130/80 144/86 Pulse Ox 94 94 95 O2 Delivery Room Air Room Air Room Air Intake and Output 12/11/16 12/11/16 12/12/16 15:00 23:00 07:00 Intake Total 1523 ml 400 ml Balance 1523 ml 400 ml Images Called by Radiology this AM questioning need for SBFT. Problem List Problems Medical Problems: (1) Abdominal pain Status: Acute Assessment Have some doubts pain is really GI-related. Has IBS historically and her stool history c/w this. Plan of Care Note No further w/u seems needed. OK to feed/dismiss at your discretion. ALEXANDRU BUCIO MD Dec 12, 2016 13:56
--- NOTE | 2016-12-14 09:24 | CONS ---
DATE OF CONSULTATION: 12/11/2016 REASON FOR CONSULTATION: Abdominal pain, right lower quadrant; diarrhea. HISTORY OF PRESENT ILLNESS: A 36-year-old female with past medical history significant for cholecystectomy, hysterectomy, tonsillectomy, ____ pancreatitis, and nephrolithiasis, who was admitted at [facility] with recurrent right lower quadrant pain. The patient has been in and out of the Emergency Room on numerous occasions ____ despite living in [place]. Denies any extensive ____ but states she does have up to 12 loose stools per day, which were nonbloody in nature. There has been no outside travel, well water consumption or recent antibiotics. Family history is positive for Crohn's disease with her father with continued symptoms. She was admitted and CT scan was read as unrevealing. PAST MEDICAL HISTORY: Cholecystectomy, hysterectomy, tonsillectomy, nephrolithiasis, and pancreatitis. ALLERGIES: PENICILLIN, ____DICYCLOMINE, KETORALAC SALT, ____ TRAMADOL AND TRIMETHOPRIM. MEDICATIONS: At the present time include morphine, Zofran, and Dilaudid. FAMILY AND SOCIAL HISTORY: She does not drink or smoke. Family history significant for Crohn's disease. REVIEW OF SYSTEMS: Per records. PHYSICAL EXAMINATION: GENERAL: Reveals a well-nourished, well-developed female. VITAL SIGNS: Temperature is 97.5, pulse is ____, and blood pressure is 135/79. HEENT: Normocephalic and atraumatic. Pupils and extraocular muscles not tested. Sclerae anicteric. NECK: Supple. LUNGS: Clear. CARDIOVASCULAR: Reveals S1, S2 without S3, S4 or appreciable murmur. ABDOMEN: Soft abdomen, normal bowel sounds, without appreciable hepatosplenomegaly. Multiple surgical scars; mild right upper quadrant tenderness to deep palpation with mild hepatomegaly. EXTREMITIES: Reveals no cyanosis, clubbing or edema. LABORATORY STUDIES: Urinalysis reveals specific gravity 1.030, a few bacteria, unremarkable for mucus, negative . Hemoglobin 13.4, white count ____, platelet counts 155,000. Sodium ____ glucose 96, calcium 9.2, albumin ____, AST of 39, ALT of 82, alkaline phosphatase of 105, total protein 7.3, and albumin 3.6, lipase is 955. CT scan of the abdomen and pelvis reveals a normal abdominal aorta ____ status post cholecystectomy, normal spleen. No evidence of free air or obstruction. Normal appendix. IMPRESSION: Right lower quadrant abdominal pain with diarrhea, family history of Crohn's disease, ____ differential is partial small-bowel obstruction, internal hernia, adhesions, Meckel's diverticulum certainly are possible. We will recommend upper GI series, ____ undergoing further consideration to colonoscopy either as an inpatient or outpatient would be pursued. I would like to thank Dr. Hickey for allowing us to consult and participate in this patient's care ____. KAY WHEELER MD DR: KING/flaca JOB#: [id number] / [id number]
--- NOTE | 2016-12-21 05:18 | DS ---
DATE OF DISCHARGE: 12/12/2016 DISCHARGE DIAGNOSES: 1. Right lower quadrant abdominal pain, unclear etiology, resolved. 2. Obesity. 3. Depression. 4. Anxiety. BRIEF HOSPITAL COURSE: A 36-year-old female patient admitted to the hospital for abdominal pain. She was evaluated by Dr. Cervantes and Dr. Holguin. The patient underwent imaging studies such as the abdomen and pelvic CT, which is negative for any acute process. Her labs are within normal range, which is including CBC and BMP and urinalysis. The patient has been treated symptomatically. Her symptoms improved with symptomatic treatment with pain control and advancing ____. She deemed stable enough to go home and follow up with primary care doctor and Gastroenterology as needed. DISCHARGE PHYSICAL EXAMINATION: GENERAL: Alert, oriented x 3. HEART: S1, S2 present. CHEST: Anterior chest is clear. ABDOMEN: Soft, nontender, no organomegaly. EXTREMITIES: No edema. DISCHARGE DISPOSITION: Home. DISCHARGE CONDITION: Stable. MEDICATIONS: Reviewed, please see my discharge instructions. DIET: Regular diet. Total time spent for discharge is 32 minutes for patient education, counseling, and coordination of care. BRITANY LEDESMA MD DR: TIARA/flaca JOB#: [id number] / [id number]
== END 2016-12-12 14:20 | disposition home or self-care (01) | DRG 392 ==
LOC: ER 04:35 → 5 SOUTH 09:37
PROVIDERS: ADMIT Internal Medicine; ATTEND Internal Medicine
DX: R10.31 Right lower quadrant pain (principal); Z68.43 Body mass index [BMI] 50.0-59.9, adult; E66.01 Morbid (severe) obesity due to excess calories; F32.9 Major depressive disorder, single episode, unspecified; F41.9 Anxiety disorder, unspecified; J45.909 Unspecified asthma, uncomplicated; K21.9 Gastro-esophageal reflux disease without esophagitis; K58.0 Irritable bowel syndrome with diarrhea; N20.0 Calculus of kidney; Z87.442 Personal history of urinary calculi; Z90.49 Acquired absence of other specified parts of digestive tract; Z90.710 Acquired absence of both cervix and uterus; Z88.0 Allergy status to penicillin; Z88.1 Allergy status to other antibiotic agents; Z88.2 Allergy status to sulfonamides; Z88.8 Allergy status to other drugs, medicaments and biological substances
CPT/HCPCS: 36415; 74177; 80048; 80053; 81001; 81025; 83690; 85027; 96374; J1170; J2270; J2405; J7030; Q9967; 99285-25

== ENCOUNTER 2016-12-28 03:25 | Emergency (ER) | payer MEDICAID ==
[~2016-12-28] VITALS: Ht 180.3 cm; Wt 163.3 kg
[~2016-12-28 03:25] MED LIST changes: +RANI300T PO; +SERT100T PO
[2016-12-28 03:30] VITALS: BP 142/78
[2016-12-28] MEDS ORDERED: MORPHINE SULFATE 4 MG/ML DISP.SYRIN. IV/SQ PRN (04:00)
--- NOTE | 2016-12-28 04:36 | PHYS DOC ---
Past Medical History Past Medical History: Asthma, Bipolar, GERD, Kidney Stone, Pancreatitis, Other Additional Past Medical Histor: ENLARGED LIVER,hirtuism Past Surgical History: Cholecystectomy, Hysterectomy, Tonsillectomy, Other Additional Past Surgical Histo: CYST REMOVED ON TAILBONE Alcohol Use: None Drug Use: None Adult General Chief Complaint Chief Complaint: CHEST PAIN-CARDIAC NATURE HPI HPI Patient is a 36 year old female who presents with chest pain. The patient reports onset of pain 30 minutes prior to arrival while at rest. States pain is sharp, substernal, radiating across the chest. Worse with deep breathing. Denies fevers or chills, cough, shortness of breath, nausea, diaphoresis. Denies previous history of similar symptoms. Denies history of cardiac or lung disease. No history of DVT or PE. Current every day smoker. Denies use of exogenous hormones, no recent travel or surgery. Review of Systems Review of Systems Constitutional: Denies fever or chills Eyes: Denies change in visual acuity HENT: Denies nasal congestion or sore throat Respiratory: Denies cough or shortness of breath Cardiovascular: Reports chest pain denies edema GI: Denies abdominal pain, nausea, vomiting Musculoskeletal: Denies back pain or joint pain Integument: Denies rash or skin lesions Neurologic: Denies headache, focal weakness or sensory changes Current Medications Current Medications Current Medications Medications (Trade) Dose Ordered Sig/Rod Start Time Stop Time Status Last Admin Dose Admin Morphine Sulfate 4 mg PRN Q15MIN PRN 12/28/16 04:00 12/29/16 03:59 12/28/16 05:12 4 MG Ondansetron HCl (Zofran) 4 mg 1X ONCE 12/28/16 05:30 12/28/16 05:31 DC 12/28/16 05:20 4 MG Allergies Allergies Allergies Coded Allergies Type Severity Reaction Last Updated Verified Penicillins Allergy Intermediate SWEATING 04/01/14 Yes cephalexin Allergy Intermediate SWEATING 04/01/14 Yes dicyclomine Allergy Intermediate 11/04/16 Yes ketorolac Allergy Intermediate 07/26/16 Yes sulfamethoxazole Allergy Intermediate SWEATING 04/01/14 Yes tramadol Allergy Intermediate SWEATING 04/01/14 Yes trimethoprim Allergy Intermediate SWEATING 04/01/14 Yes Physical Exam Physical Exam Constitutional: morbidly obese, no acute distress, non-toxic appearance. HENT: Normocephalic, atraumatic, bilateral external ears normal, oropharynx moist, nose normal. Eyes: conjunctiva normal, no discharge. Neck: supple, no stridor. Cardiovascular: RRR, no murmurs, no edema. Lungs & Thorax: LCTAB, no wheezing, no respiratory distress. reproducible tenderness with palpation over the sternum. Abdomen: soft, nontender, nondistended. Skin: Warm, dry, no erythema, no rash. Back: No tenderness. Extremities: No tenderness, no edema. no calf tenderness or swelling. Neurologic: Alert and oriented X 3, no focal deficits noted. Psychologic: Affect normal, judgement normal, mood normal. Current Patient Data Vital Signs Vital Signs Date Time Temp Pulse Resp B/P Pulse Ox O2 Delivery O2 Flow Rate FiO2 12/28/16 05:12 20 95 Room Air 12/28/16 03:30 97.6 87 142/78 97.6 Lab Values Laboratory Tests Test 12/28/16 05:12 12/28/16 05:14 POC Troponin I 0.00ng/ml (<0.08) POC Hemoglobin 13.3g/dL (12-15) POC Hematocrit 39% (36-40) POC Sodium 140mmol/L (135-145) POC Potassium 4.4mmol/L (3.5-5.0) POC Chloride 103mmol/L (98-110) POC Total CO2 27mmol/L (23-32) Anion Gap 15mmol/L (6-14) H POC Blood Urea Nitrogen 21mg/dL (8-26) POC Creatinine 0.8mg/dL (0.5-1.4) Glucose Level 98mg/dL (70-99) POC Ionized Calcium (Juliet) 1.16mmol/L (1.13-1.32) Laboratory Tests 12/28/16 05:14 EKG EKG interpreted by me: NSR rate 87, no acute ST/T wave changes, normal intervals, no ectopy.[] Radiology/Procedures Radiology/Procedures CXR: interpreted by me: no cardiomegaly, no infiltrate, no pneumothorax.[] Course & Med Decision Making Course & Med Decision Making Pertinent Labs and Imaging studies reviewed. (See chart for details) Patient presents with chest pain. Vitals stable, pain reproducible, atypical for ACS, PERC is negative, HEART score low risk (0). Gave pain medication & symptoms improved. Obtained labs, EKG, CXR. No acute abnormality identified. Recommend rest, tylenol/ibuprofen for pain. Follow up with primary care physician in 2-3 days if not improving. Come back for severe chest pain or shortness of breath, or any otherwise worsening condition. Discharged home in stable & improved condition. [] Dragon Disclaimer Dragon Disclaimer This electronic medical record was generated, in whole or in part, using a voice recognition dictation system. Departure Departure Impression: Primary Impression: Chest pain Disposition: 01 HOME, SELF-CARE Condition: STABLE Referrals: UNKNOWN PCP NAME (PCP) Patient Instructions: Chest Pain (Nonspecific), [id number] Additional Instructions: You were seen in the emergency department today for chest pain. Tests here did not show a serious cause of symptoms. Please rest, take tylenol or ibuprofen for pain. Follow up with your primary care doctor if not improving in 2-3 days. Come back for severe shortness of breath or chest pain, or any otherwise worsening condition. LAURA GORDON MD December 28, 2016 04:36
[2016-12-28 05:27] LABS: POTASSIUM ISTAT 4.4 mmol/L (3.5-5.0)
[2016-12-28] MEDS ORDERED: ONDANSETRON PF 4 MG/2 ML VIAL. IV ONE (05:30)
--- NOTE | 2016-12-28 06:12 | ACF ---
Admission Forms Criteria CARDIOLOGY GRG Clinical Indications for Admission to Inpatient Care ( Place 'X' for any and all applicable criteria): Hospital admission is needed for appropriate care of the patient because of ANY ONE of the following (1): [ ] I. Hemodynamic instability as indicated by ALL of the following (1)(2)(3) (4)(5) [ ]a) Vital signs or other findings not as expected for chronic patient condition or baseline [ ]b) Instability indicated by ANY ONE of the following: [ ]i) Hypotension [ ]ii) Symptomatic Tachycardia unresponsive to treatment ( e.g., analgesia, fluids, sedation as indicated) [ ]iii) Inadequate perfusion indicated by ANY ONE of the following: [ ] 1) Lactic acidosis (> 2 mmol/L) [ ] 2) New abnormal capillary refill (> 3 seconds) [ ] 3) Reduced urine output [ ] 4) New altered mental status [ ]iv) Orthostatic vital sign changes unresponsive to treatment (e.g., fluids) [ ]v) IV inotropic or vasopressor medication required to maintain adequate blood pressure or perfusion [ ] II. Severe heart failure as indicated by ANY ONE of the following(17)(18) [ ]a) Respiratory distress [ ]b) Hypotension [ ]c) Anasarca (refractory to outpatient therapy) [ ]d) Cardiac arrhythmias of immediate concern [ ]e) Myocardial ischemia [ ] III. Cardiac arrhythmias or findings of immediate concern indicated by ANY ONE of the following (19)(20): [ ] a) Heart rhythms that are inherently dangerous or unstable indicated by ANY ONE of the following (21)(22)(23): [ ] i) Resuscitated ventricular fibrillation or cardiac arrest [ ] ii) Ventricular escape rhythm [ ] iii) Sustained ventricular tachycardia (30 seconds or more of ventricular rhythm at greater than 100 beats per minute) [ ] iv) Nonsustained ventricular tachycardia and ANY ONE of the following: [ ] 1) Suspected cardiac ischemia as cause or consequence of ventricular tachycardia [ ] 2) In setting of acute myocarditis [ ] b) Unstable cardiac conduction defects indicated by ANY ONE of the following(23)(24)(25) [ ] i) Type II second-degree atrioventricular block [ ]ii) Third-degree atrioventricular block [ ]iii) New-onset left bundle branch block with suspected myocardial ischemia [ ]c) Any heart rhythm and ANY ONE of the following (21)(22)(26)(27) (28) [ ] i) Continuous long-term ECG monitoring needed (e.g., initiation of drug requiring monitoring for more than 24 hours) [ ] ii) Patient has automatic implanted cardioverter defibrillator that is repeatedly firing, malfunctioning, or in need of immediate adjustment of settings beyond the scope of ambulatory or observation care [ ]d) Heart rhythms of concern due to ANY ONE of the following: [ ] i) Hypotension [ ] ii) Respiratory distress [ ] iii) Association with other significant symptoms (e.g., bradycardia with syncope or ongoing dizziness, supraventricular tachycardia with chest pain (14)(15)(17) [ ] IV. Monitoring for cardiac contusion beyond the scope of observation care needed [A](30)(31)(32) [ ] V. Surgical or device complication (e.g., valve replacement complication , pacemaker dysfunction) (35)(41)(44)(45)(46) [ ] . Inpatient palliative care needed. [B](49) Also use Inpatient Palliative Care Criteria [ ] VII. Nonbacterial thrombotic (marantic) endocarditis (36)(43)(47)(48) [X] VIII. Cardiology condition, symptom, or finding for which emergency and observation care has failed or are not considered appropriate. [ ] IX. Acute valvular disease requiring inpatient as indicated by ANY ONE of the following (41) [ ]a) Acute valvular regurgitation (42) [ ]b) Noninfectious valvulitis (43) [ ]c) Obstructive valve thrombosis [ ]d) Paravalvular leak [ ]e) Other significant valvular disorder remaining after emergency or observation level of care (as appropriate) [ ]X. Pericardial disease requiring inpatient treatment as indicated by ANY ONE of the following (33)(34)(35)(36)(37) [ ]a) Suspected tamponade (38)(39)(40) [ ]b) Hemopericardium [ ]c) Other significant pericardial disorder remaining after emergency or observation level of care (as appropriate) [ ] XI. Cardiac ischemia beyond scope of emergency and observation care. [ ] XII. Hypertension requiring inpatient treatment as indicated by ANY ONE of the following (6)(7)(8) [ ]a) SBP greater than 220 mm Hg or DBP greater than 120 mmHg despite treatment [ ]b) SBP greater than 140 mm Hg or DBP greater than 100 mm Hg with evidence of acute end organ damage as indicated by ANY ONE of the following [ ] i) Encephalopathy [ ] ii) Acute renal failure as indicated by new onset of ANY ONE of the following (9)(10)(11)(12)(13) [ ]1) 3-fold rise in serum creatinine from baseline [ ]2) Serum creatinine greater than 4 mg/dL ( 354 micromoles/L) with acute rise greater than 0.5 mg/dL (44.2 micromoles/L) [ ]3) Reduction of more than 75% in estimated glomerular filtration rate from baseline [ ]4) Estimated glomerular filtration rate less than 35 mL/min/1.73m2 (0.59 mL/sec/1.73m2) in child up to 18 years of age [ ]5) Cessation of urine output indicated by ALL of the following [ ]A. Adequate volume status [ ]B. Inadequate urine output as indicated by ANY ONE of the following [ ]a. Urine output less than 0.3 mL/kg/hr for 24 hours [ ]b. Anuria (urine output less than 0.1 mL/kg/hr) for 12 hours [ ] iii) Aortic dissection [ ] iv) Myocardial Ischemia [ ] v) Left ventricular heart failure [ ]vi) Retinal Hemorrhage [ ]vii) Other significant finding [ ]c) Hypertension in child requiring inpatient treatment as indicated by ALL of the following(14)(15)(16) [ ] i) Outpatient treatment not effective, not available, or not appropriate [ ]ii) SBP or DBP greater than 95th percentile for age [ ]iii) Evidence of acute end organ damage as indicated by ANY ONE of the following [ ]1) Altered mental status [ ]2) Acute renal failure as indicated by new onset of ANY ONE of the following(9)(10)(11)(12)(13) [ ]A. 3-fold rise in serum creatinine from baseline [ ]B. Serum creatinine greater than 4 mg/dL (354 micromoles/L) with acute rise greater than 0.5 mg/dL (44.2 micromoles/L) [ ]C. Reduction of more than 75% in estimated glomerular filtration rate from baseline [ ]D. Estimated glomerular filtration rate less than 35 mL/min/1.73m2 (0.59 mL/sec/1.73m2) in child up to 18 years of age [ ]E. Cessation of urine output indicated by ALL of the following [ ]a. Adequate volume status [ ]b. Inadequate urine output as indicated by ANY ONE of the following [ ]i) Urine output less than 0.3 mL/kg/hr for 24 hours [ ]ii) Anuria ( urine output less than 0.1 mL/kg/hr) for 12 hours [ ]3) Severe headache [ ]4) Visual disturbance [ ]5) Retinal hemorrhage [ ]6) Other significant finding [ ]XIII. Complications of transplanted heart indicated by ANY ONE of the following(61): [ ]a) Acute graft rejection requiring inpatient management (eg, intravenous immunosuppression)(62)(63) [ ]b) Acute graft heart failure indicated by ANY ONE of the following(64): [ ]i) Hemodynamic instability [ ]ii) Cardiac arrhythmias of immediate concern [ ]iii) Pulmonary edema that is very severe (eg, mechanical ventilation needed, imminent or likely, need for 100% oxygen to keep oxygen saturation above 90%) [ ]iv) Pulmonary edema that is persistent as indicated by ALL of the following: [ ]1) New need for oxygen therapy to keep oxygen saturation above 90% (or increased FiO2 need from baseline) [ ]2) Has not improved sufficiently with emergency department or observation care IV diuretics or other heart failure treatments[E] [ ]v) Altered mental status that is severe or persistent [ ]vi) Increased creatinine (new on laboratory test) with reduction of more than 50% in estimated glomerular filtration rate from baseline [ ]vii) Progressively (ongoing) rising creatinine (known from past laboratory test) with reduction of more than 25% in estimated glomerular filtration rate from baseline [ ]viii) Acute renal failure [ ]ix) Acute peripheral ischemia (eg, examination shows pulseless, cool, mottled, or cyanotic extremity) [ ]x) Pulmonary artery catheter monitoring needed [ ]xi) Other sign or symptom of heart failure requiring inpatient treatment (ie, too severe or not responsive to outpatient and observation care treatment) [ ]c) Infection requiring inpatient management (eg, Hemodynamic instability, need for intravenous antimicrobial treatment)(66)(67)(68)(69)(70) [ ]d) Cardiac allograft vasculopathy requiring inpatient management ( eg evidence of cardiac ischemia)(71) [ ]e) Other complication of transplanted heart (eg, stroke, severe pulmonary hypertension, severe valvular dysfunction) requiring inpatient management(72) The original [facility] [employer] [facility] content created by [facility] has been revised. The portions of the content which have been revised are identified through the use of italic text or in bold, and [facility] has neither reviewed nor approved the modified material. All other unmodified content is copyright [facility]. Please see references footnoted in the original [facility] edition 2016 LOLA MANN December 28, 2016 06:12
--- NOTE | 2016-12-28 06:35 | EKG ---
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
--- NOTE | 2016-12-28 07:27 | RAD ---
Indication chest pain. A single view of the chest was obtained and is compared to an examination 02/21/2009. The heart and pulmonary vessels appear normal. The lungs are clear. The mediastinum has a normal appearance. There has not been a significant change in the appearance of the chest relative to the previous exam. IMPRESSION: No acute or focal process. No significant change
== END 2016-12-28 05:43 | disposition home or self-care (01) ==
LOC: ER 03:25
DX: R07.1 Chest pain on breathing (principal); J45.909 Unspecified asthma, uncomplicated; K21.9 Gastro-esophageal reflux disease without esophagitis; F31.9 Bipolar disorder, unspecified; Z90.49 Acquired absence of other specified parts of digestive tract; Z90.710 Acquired absence of both cervix and uterus; Z88.0 Allergy status to penicillin; Z88.1 Allergy status to other antibiotic agents; Z88.2 Allergy status to sulfonamides; Z88.6 Allergy status to analgesic agent; Z88.8 Allergy status to other drugs, medicaments and biological substances
CPT/HCPCS: 71010; 80047; 84484; 93005; 96374; 96375; 99285; J2270; J2405

== ENCOUNTER 2017-01-21 01:00 | Emergency (ER) | payer MEDICAID ==
[~2017-01-21] VITALS: Ht 180.3 cm; Wt 163.3 kg
[2017-01-21 01:17] VITALS: BP 178/116
--- NOTE | 2017-01-21 01:30 | PHYS DOC ---
Past Medical History Past Medical History: Asthma, Bipolar, GERD, Kidney Stone, Pancreatitis, Other Additional Past Medical Histor: ENLARGED LIVER,hirtuism Past Surgical History: Cholecystectomy, Hysterectomy, Tonsillectomy, Other Additional Past Surgical Histo: CYST REMOVED ON TAILBONE Alcohol Use: None Drug Use: None Adult General Chief Complaint Chief Complaint: FLANK PAIN HPI HPI Patient is a 36 year old female who presents with flank pain. "I think I'm having another kidney stone." She has chronic kidney stones. She has had multiple recent visits and had CT scans of her abdomen and pelvis on 12/11/16; 08/15; 11/04/16 that were all negative. She has not been seen by a urologist however. She states she has had pain and vomiting for 4 days. No blood in her urine. No burning or pain with urination. No fever or chills. Review of Systems Review of Systems Constitutional: Denies fever or chills Eyes: Denies change in visual acuity, redness, or eye pain HENT: Denies nasal congestion or sore throat Respiratory: Denies cough or shortness of breath Cardiovascular: no chest pain GI: Denies abdominal pain, Some nausea, vomiting, but no bloody stools or diarrhea : Denies dysuria or hematuria Musculoskeletal: bilateral flank pain Integument: Denies rash or skin lesions Neurologic: Denies headache, focal weakness or sensory changes Allergies Allergies Allergies Coded Allergies Type Severity Reaction Last Updated Verified Penicillins Allergy Intermediate SWEATING 04/01/14 Yes cephalexin Allergy Intermediate SWEATING 04/01/14 Yes dicyclomine Allergy Intermediate 11/04/16 Yes ketorolac Allergy Intermediate 07/26/16 Yes sulfamethoxazole Allergy Intermediate SWEATING 04/01/14 Yes tramadol Allergy Intermediate SWEATING 04/01/14 Yes trimethoprim Allergy Intermediate SWEATING 04/01/14 Yes Physical Exam Physical Exam Constitutional: Well developed, well nourished, no acute distress, non-toxic appearance. HENT: Normocephalic, atraumatic, bilateral external ears normal, oropharynx moist, no oral exudates, nose normal. Eyes: PERRLA, EOMI, conjunctiva normal, no discharge. Neck: Normal range of motion, no tenderness, supple, no stridor. Cardiovascular:Heart rate regular rhythm, no murmur Lungs & Thorax: Bilateral breath sounds clear to auscultation Abdomen: Bowel sounds normal, soft, no tenderness, no masses, no pulsatile masses. Skin: Warm, dry, no erythema, no rash. Back: No tenderness, no CVA tenderness. Extremities: No tenderness, no cyanosis, no clubbing, ROM intact, no edema. Neurologic: Alert and oriented X 3, normal motor function, normal sensory function, no focal deficits noted. Psychologic: Affect normal, judgement normal, mood normal. Current Patient Data Vital Signs Vital Signs Date Time Temp Pulse Resp B/P (MAP) Pulse Ox O2 Delivery O2 Flow Rate FiO2 01/21/17 01:17 98.0 90 16 178/116 (136) 97 Room Air 98.0 Lab Values Laboratory Tests Test 01/21/17 01:15 Urine Collection Type Unknown Urine Color Yellow Urine Clarity Clear Urine pH 6.5 Urine Specific [place] 1.025 Urine Protein Negative mg/dL (NEG-TRACE) Urine Glucose (UA) Negative mg/dL (NEG) Urine Ketones (Stick) Negative mg/dL (NEG) Urine Blood Negative (NEG) Urine Nitrite Negative (NEG) Urine Bilirubin Negative (NEG) Urine Urobilinogen Dipstick 0.2 mg/dL (0.2 mg/dL) Urine Leukocyte Esterase Negative (NEG) Urine RBC Occ /HPF (0-2) Urine WBC Occ /HPF (0-4) Urine Squamous Epithelial Cells Few /LPF Urine Bacteria 0 /HPF (0-FEW) Urine Mucus Slight /LPF Course & Med Decision Making Course & Med Decision Making Pertinent Labs and Imaging studies reviewed. (See chart for details) A patient and reviewed her recent medical chart. She had extensive evaluation workup with multiple CT imaging just within the past several weeks. Do not feel that any further imaging is needed in fact risks of further imaging to our waiting benefits. She appears nontoxic here. He'll long discussion with the patient if she is indeed having kidney stone she is to be seen by a urologist because we have exhausted capabilities here in the emergency department. A 12- lead to check her urinalysis and then I can place her on appropriate outpatient medication. While waiting for the urinalysis patient became upset and just decided to leave. She signed out AMA. Yessenia Disclaimer Yessenia Disclaimer This electronic medical record was generated, in whole or in part, using a voice recognition dictation system. Departure Departure Impression: Primary Impression: Bilateral flank pain Disposition: MEDICAL ADVICE Condition: STABLE Referrals: NO PCP (PCP) TATI PINZON MD January 21, 2017 01:30
[2017-01-21 01:40] LABS: BILIRUBIN,URINE NEGATIVE (NEG); GLUCOSE,URINE NEGATIVE (NEG); NITRITE,URINE NEGATIVE (NEG); PH,URINE 6.5; PROTEIN,URINE NEGATIVE (NEG-TRACE); UROBILINOGEN,URINE 0.2 mg/dL (0.2 mg/dL)
[2017-01-21 01:52] LABS: BACTERIA,URINE 0 /HPF (0-FEW); RBC,URINE OCC /HPF (0-2); SQUAMOUS EPITHELIAL CELL,UR FEW /LPF; WBC,URINE OCC /HPF (0-4)
== END 2017-01-21 02:00 | disposition left against medical advice (07) ==
LOC: ER 01:00
DX: R10.9 Unspecified abdominal pain (principal); J45.909 Unspecified asthma, uncomplicated; K21.9 Gastro-esophageal reflux disease without esophagitis; F31.9 Bipolar disorder, unspecified; Z90.49 Acquired absence of other specified parts of digestive tract; Z90.710 Acquired absence of both cervix and uterus; Z88.6 Allergy status to analgesic agent; Z88.1 Allergy status to other antibiotic agents; Z88.0 Allergy status to penicillin
CPT/HCPCS: 81001; 99283

== ENCOUNTER 2017-02-07 04:50 | Emergency (ER) | payer MEDICAID ==
[~2017-02-07] VITALS: Ht 180.3 cm; Wt 168.3 kg
[~2017-02-07 04:50] MED LIST changes: -HYDR-2666 PO; +HYDR-2758 PO; +LEVO500T59 PO; -OXYC-244 PO; +OXYC-327 PO; +guaiFENesin/CODEINE 100mg/10mg PO
[2017-02-07 05:18] VITALS: BP 153/84
[2017-02-07] MEDS ORDERED: HYDR-971 PO (06:21)
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
== END 2017-02-07 06:40 | disposition home or self-care (01) ==
LOC: ER 04:50
DX: R10.84 Generalized abdominal pain (principal); J45.909 Unspecified asthma, uncomplicated; F31.9 Bipolar disorder, unspecified; K21.9 Gastro-esophageal reflux disease without esophagitis; R16.0 Hepatomegaly, not elsewhere classified; Z87.442 Personal history of urinary calculi; Z88.0 Allergy status to penicillin; Z90.49 Acquired absence of other specified parts of digestive tract; Z90.710 Acquired absence of both cervix and uterus; Z90.89 Acquired absence of other organs; Z88.6 Allergy status to analgesic agent; Z88.1 Allergy status to other antibiotic agents; Z88.5 Allergy status to narcotic agent; Z88.2 Allergy status to sulfonamides; Z88.8 Allergy status to other drugs, medicaments and biological substances; Y04.0XXA Assault by unarmed brawl or fight, initial encounter; Y93.89 Activity, other specified; Y92.89 Other specified places as the place of occurrence of the external cause; Y99.8 Other external cause status
CPT/HCPCS: 99283

== ENCOUNTER 2017-03-05 07:11 | Emergency (ER) | payer MEDICAID ==
[~2017-03-05] VITALS: Ht 180.3 cm; Wt 149.7 kg
--- NOTE | 2017-03-05 07:54 | PHYS DOC ---
Past Medical History Past Medical History: Asthma, Bipolar, GERD, Kidney Stone, Pancreatitis, Other Additional Past Medical Histor: ENLARGED LIVER,hirtuism Past Surgical History: Cholecystectomy, Hysterectomy, Tonsillectomy, Other Additional Past Surgical Histo: CYST REMOVED ON TAILBONE Alcohol Use: None Drug Use: None Adult General Chief Complaint Chief Complaint: CHEST PAIN [facility] HPI Patient is a 37 year old obese female presents to the emergency department with a history of chest pain. Patient states the chest pain woke her up around 4 :30 or 5:00 this morning. She states the pain is a pressure type pain like an elephant sitting on her chest that radiates into the left. She states she became SOA denies diaphoresis. She denies previous history of CAD. Patient states she smokes 1 cig/day, denies recreational drug use or ETOH. Review of Systems Review of Systems Constitutional: Denies fever or chills [] Eyes: Denies change in visual acuity, redness, or eye pain [] HENT: Denies nasal congestion or sore throat [] Respiratory: Denies cough C/o shortness of breath with chest pain [] Cardiovascular: No additional information not addressed in HPI [] GI: Denies abdominal pain, nausea, vomiting, bloody stools or diarrhea [] : Denies dysuria or hematuria [] Musculoskeletal: Denies back pain or joint pain [] Integument: Denies rash or skin lesions [] Neurologic: Denies headache, focal weakness or sensory changes [] Endocrine: Denies polyuria or polydipsia [] Current Medications Current Medications Current Medications Medications (Trade) Dose Ordered Sig/Rod Start Time Stop Time Status Last Admin Dose Admin Acetaminophen/ Hydrocodone Bitart (Lortab 5/325) 1 tab PRN Q6HRS PRN 03/05/17 09:45 Albuterol Sulfate (Ventolin Hfa) 2 puff QID 03/05/17 13:00 UNV Albuterol Sulfate (Ventolin Neb Soln) 2.5 mg RTQID 03/05/17 12:00 Aspirin (Children'S Aspirin) 324 mg 1X ONCE 03/05/17 08:00 03/05/17 08:01 DC 03/05/17 08:05 324 MG Famotidine (Pepcid) 20 mg BID 03/05/17 10:00 Guaifenesin/ Codeine Phosphate (Robitussin Ac) 5 ml PRN Q6HRS PRN 03/05/17 09:45 Morphine Sulfate 2 mg 1X ONCE 03/05/17 08:45 03/05/17 08:47 DC 03/05/17 09:02 2 MG Ondansetron HCl (Zofran Odt) 4 mg 1X ONCE 03/05/17 08:00 03/05/17 08:01 DC 03/05/17 08:05 4 MG Potassium Chloride (Klor-Con) 40 meq 1X ONCE 03/05/17 10:00 03/05/17 10:01 Sertraline HCl (Zoloft) 150 mg DAILY 03/06/17 09:00 UNV Allergies Allergies Allergies Coded Allergies Type Severity Reaction Last Updated Verified Penicillins Allergy Intermediate SWEATING 04/01/14 Yes cephalexin Allergy Intermediate SWEATING 04/01/14 Yes dicyclomine Allergy Intermediate 11/04/16 Yes ketorolac Allergy Intermediate 07/26/16 Yes sulfamethoxazole Allergy Intermediate SWEATING 04/01/14 Yes tramadol Allergy Intermediate SWEATING 04/01/14 Yes trimethoprim Allergy Intermediate SWEATING 04/01/14 Yes Physical Exam Physical Exam Constitutional: Well developed, well nourished, no acute distress, non-toxic appearance. [] HENT: Normocephalic, atraumatic, bilateral external ears normal, oropharynx moist, no oral exudates, nose normal. [] Eyes: PERRLA, EOMI, conjunctiva normal, no discharge. [] Neck: Normal range of motion, no tenderness, supple, no stridor. [] Cardiovascular:Heart rate regular rhythm, no murmur [] Lungs & Thorax: Bilateral breath sounds clear to auscultation [] Abdomen: Bowel sounds hypoactive, soft, no tenderness, no masses, no pulsatile masses. [] Skin: Warm, dry, no erythema, no rash. [] Back: No tenderness Extremities: No tenderness, no cyanosis, no clubbing, ROM intact, no edema. [] Neurologic: Alert and oriented X 3, normal motor function, normal sensory function, no focal deficits noted. [] Psychologic: Affect normal, judgement normal, mood normal. [] Current Patient Data Vital Signs Vital Signs Date Time Temp Pulse Resp B/P (MAP) Pulse Ox O2 Delivery O2 Flow Rate FiO2 03/05/17 09:02 84 18 129/80 (96) 97 Room Air 03/05/17 07:26 97.6 97.6 Lab Values Laboratory Tests Test 03/05/17 07:26 03/05/17 08:03 03/05/17 08:43 White Blood Count 7.7 x10^3/uL (4.0-11.0) Red Blood Count 4.51 x10^6/uL (3.50-5.40) Hemoglobin 13.5 g/dL (12.0-15.5) Hematocrit 39.9 % (36.0-47.0) Mean Corpuscular Volume 88 fL (79-100) Mean Corpuscular Hemoglobin 30 pg (25-35) Mean Corpuscular Hemoglobin Concent 34 g/dL (31-37) Red Cell Distribution Width 13.5 % (11.5-14.5) Platelet Count 151 x10^3/uL (140-400) Neutrophils (%) (Auto) 59 % (31-73) Lymphocytes (%) (Auto) 30 % (24-48) Monocytes (%) (Auto) 8 % (0-9) Eosinophils (%) (Auto) 3 % (0-3) Basophils (%) (Auto) 1 % (0-3) Neutrophils # (Auto) 4.5 x10^3uL (1.8-7.7) Lymphocytes # (Auto) 2.3 x10^3/uL (1.0-4.8) Monocytes # (Auto) 0.6 x10^3/uL (0.0-1.1) Eosinophils # (Auto) 0.2 x10^3/uL (0.0-0.7) Basophils # (Auto) 0.1 x10^3/uL (0.0-0.2) Sodium Level 144 mmol/L (136-145) Potassium Level 3.3 mmol/L (3.5-5.1) L Chloride Level 105 mmol/L (98-107) Carbon Dioxide Level 27 mmol/L (21-32) Anion Gap 12 (6-14) Blood Urea Nitrogen 13 mg/dL (7-20) Creatinine 0.9 mg/dL (0.6-1.0) Estimated GFR (Cockcroft-Gault) 70.8 BUN/Creatinine Ratio 14 (6-20) Glucose Level 147 mg/dL (70-99) H Calcium Level 8.9 mg/dL (8.5-10.1) Total Bilirubin 0.3 mg/dL (0.2-1.0) Aspartate Amino Transferase (AST) 48 U/L (15-37) H Alanine Aminotransferase (ALT) 88 U/L (14-59) H Alkaline Phosphatase 114 U/L (46-116) Troponin I Quantitative < 0.017 ng/mL (0.000-0.055) Total Protein 7.1 g/dL (6.4-8.2) Albumin 3.8 g/dL (3.4-5.0) Albumin/Globulin Ratio 1.2 (1.0-1.7) Urine Collection Type U cath Urine Color Yellow Urine Clarity Clear Urine pH 5.5 Urine Specific [place] >=1.030 Urine Protein Negative mg/dL (NEG-TRACE) Urine Glucose (UA) Negative mg/dL (NEG) Urine Ketones (Stick) Negative mg/dL (NEG) Urine Blood Negative (NEG) Urine Nitrite Negative (NEG) Urine Bilirubin Negative (NEG) Urine Urobilinogen Dipstick 0.2 mg/dL (0.2 mg/dL) Urine Leukocyte Esterase Negative (NEG) Urine RBC 0 /HPF (0-2) Urine WBC 0 /HPF (0-4) Urine Squamous Epithelial Cells Few /LPF Urine Bacteria 0 /HPF (0-FEW) Urine Mucus Mod /LPF D-Dimer (Felecia) 0.37 ug/mlFEU (0.00-0.50) Laboratory Tests 03/05/17 07:26 Laboratory Tests 03/05/17 07:26 EKG EKG EKG completed ay 0717 with HR 98 SR noted without ectopy, no STEMI per Dr Erin Ryder [] Radiology/Procedures Radiology/Procedures [] Course & Med Decision Making Course & Med Decision Making Pertinent Labs and Imaging studies reviewed. (See chart for details) Patient's labs appear to be within normal limits. Spoke with the hospitalist in regards to keeping the patient in as an observation patient for serial troponins. They were in agreement's with this. Patient was provided with the information that we will be keeping her. Patient has required 2 doses of morphine for pain and discomfort however only 2 mg each dose was provided. Patient was provided with aspirin here in the emergency department prophylactically. Cardiology consult will be placed as well. Orders placed in the computer. [id number] Dr Yousif came and spoke with patient. Patient was seen here a month ago for the same issue, had a stress test completed at that time. Dr Yousif also spoke with the patient in regards to seeing a GI physician in which patient had seen Dr Cervantes. Patient was provided with GI phone number from Dr Yousif, patient has decided not to stay. Dr Yousif states she feels alright with the patient going home as she does not believe it is cardiac related. However from the emergency department standpoint the patient will be discharge home against medical advise after being admitted. [] Dragon Disclaimer Dragon Disclaimer This electronic medical record was generated, in whole or in part, using a voice recognition dictation system. Departure Departure Impression: Primary Impression: Chest pain Disposition: ADMITTED INPATIENT Admitting Physician: Jackeline Yousif Condition: STABLE Referrals: NO PCP (PCP) NIKUNJ LIU APRN Mar 05, 2017 07:54
[2017-03-05 07:58] LABS: BASO # 0.1 x10^3/uL (0.0-0.2); BASO % 1 % (0-3); EOS % 3 % (0-3); HEMATOCRIT 39.9 % (36.0-47.0); HEMOGLOBIN 13.5 g/dL (12.0-15.5); LYMPH # 2.3 x10^3/uL (1.0-4.8); LYMPH % 30 % (24-48); MEAN CORPUSCULAR HEMOGLOBIN 30 pg (25-35); MEAN CORPUSCULAR HGB CONC 34 g/dL (31-37); MEAN CORPUSCULAR VOLUME 88 fL (79-100); MONO % 8 % (0-9); NEUT % 59 % (31-73); PLATELET COUNT 151 x10^3/uL (140-400); RED BLOOD COUNT 4.51 x10^6/uL (3.50-5.40); RED CELL DISTRIBUTION WIDTH 13.5 % (11.5-14.5); WHITE BLOOD COUNT 7.7 x10^3/uL (4.0-11.0)
[2017-03-05] MEDS ORDERED: MORPHINE SULFATE 4 MG/ML DISP.SYRIN. IV ONE (08:00)
[2017-03-05] MEDS ORDERED: ONDANSETRON ODT 4 MG TAB.RAPDIS. PO ONE (08:00)
[2017-03-05] MEDS ORDERED: ASPIRIN CHEWABLE 81 MG TABLET. PO ONE (08:00)
[2017-03-05 08:01] LABS: CALCIUM 8.9 mg/dL (8.5-10.1); CREATININE 0.9 mg/dL (0.6-1.0); GFR 70.8; POTASSIUM 3.3 mmol/L (3.5-5.1)
[2017-03-05 08:07] LABS: ALBUMIN 3.8 g/dL (3.4-5.0); ALBUMIN/GLOBULIN RATIO 1.2 (1.0-1.7); TOTAL BILIRUBIN 0.3 mg/dL (0.2-1.0); TOTAL PROTEIN 7.1 g/dL (6.4-8.2)
--- NOTE | 2017-03-05 08:27 | RAD ---
Portable chest, 03/05/2017: History: Chest pain Comparison is made to a study from 01/26/2017. The heart size and pulmonary vascularity are normal. No pulmonary infiltrates are seen. There is no evidence of pleural fluid. IMPRESSION: No acute cardiopulmonary abnormality is detected.
[2017-03-05 08:36] LABS: BILIRUBIN,URINE NEGATIVE (NEG); GLUCOSE,URINE NEGATIVE (NEG); NITRITE,URINE NEGATIVE (NEG); PH,URINE 5.5; PROTEIN,URINE NEGATIVE (NEG-TRACE); UROBILINOGEN,URINE 0.2 mg/dL (0.2 mg/dL)
[2017-03-05] MEDS ORDERED: MORPHINE SULFATE 2 MG/ML DISP.SYRIN. IV ONE (08:45)
[2017-03-05 08:46] LABS: BACTERIA,URINE 0 /HPF (0-FEW); RBC,URINE 0 /HPF (0-2); SQUAMOUS EPITHELIAL CELL,UR FEW /LPF; WBC,URINE 0 /HPF (0-4)
[2017-03-05] MEDS ORDERED: HYDROcodone/APAP 5/325MG 1 TAB TABLET PO ONE (09:30)
[2017-03-05] MEDS ORDERED: guaiFENesin/CODEINE 100mg/10mg 5 ML LIQUID PO PRN (09:45)
[2017-03-05] MEDS ORDERED: HYDROcodone/APAP 5/325MG 1 TAB TABLET PO PRN ×2 (09:45)
[2017-03-05] MEDS ORDERED: POTASSIUM CHLORIDE 20 MEQ TABLET.ER. PO ONE (10:00)
[2017-03-05] MEDS ORDERED: FAMOTIDINE 20 MG TABLET. PO SCH (10:00)
[2017-03-05 10:02] VITALS: BP 142/78
--- NOTE | 2017-03-05 10:37 | PDOC1 ---
History and Physical Date of Admission Date of Admission DATE: 03/05/17 TIME: 10:32 Identification/Chief Complaint Chief Complaint chest pain Problems: Source Source: Caregiver, Chart review, Patient History of Present Illness History of Present Illness 37 y.o F morbidly obese with BMI 46, comes in for CP 4:30 AM woke her up from sleep., Looking at old records was just here 1-2 mos ago, had MPI which was low risk study, EF 70%,sent home, 2 mos ago was also seen here by GI< for "CP". She claims it moves to her left shoulder, no diaphoresis,she seems to like her narcs , EKG and trops neg, SHe claims she does take 300 mgs ranitidine no relief, and was on Protonix x 3 yrs, no relief. SHe has never seen GI as OP or scopes before,. 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 NO need to sign AMA I did see patient, reviewed labs, and educated her and wrote notes. Seen at ER 17 Past Medical History Pulmonary: Asthma GI: GERD, Other Psych: Bipolar, Depression Renal/: Other Past Surgical History Past Surgical History: Cholecystectomy, Tonsillectomy, Hysterectomy, Other Family History Family History: Heart Disease, High Cholestrol, Hypertension, Other Social History Smoke: <1 pack per day ALCOHOL: occassional Drugs: None Current Problem List Problem List Problems Medical Problems: (1) Chest pain Status: Acute Problems: Current Medications Current Medications Current Medications Aspirin (Children'S Aspirin) 324 mg 1X ONCE PO Last administered on 03/05/17 08:05; Start 03/05/17 at 08:00; Stop 03/05/17 at 08:01; Status DC Morphine Sulfate 4 mg 1X ONCE IV Last administered on 03/05/17 08:06; Start at 08:00; Stop 03/05/17 at 08:01; Status DC Ondansetron HCl (Zofran Odt) 4 mg 1X ONCE PO Last administered on 03/05/17 08: 05; Start 03/05/17 at 08:00; Stop 03/05/17 at 08:01; Status DC Morphine Sulfate 2 mg 1X ONCE IV Last administered on 03/05/17 09:02; Start at 08:45; Stop 03/05/17 at 08:47; Status DC Acetaminophen/ Hydrocodone Bitart (Lortab 5/325) 1 tab 1X ONCE PO ; Start at 09:30; Stop 03/05/17 at 09:46; Status DC Potassium Chloride (Klor-Con) 40 meq 1X ONCE PO Last administered on 03/05/17 10:13; Start 03/05/17 at 10:00; Stop 03/05/17 at 10:01; Status DC Albuterol Sulfate (Ventolin Hfa) 2 puff QID INH ; Start 03/05/17 at 13:00; Status UNV Acetaminophen/ Hydrocodone Bitart (Lortab 5/325) 1 tab PRN Q6HRS PRN PO PAIN; Start 03/05/17 at 09:45; Stop 03/05/17 at 09:46; Status DC Famotidine (Pepcid) 20 mg BID PO ; Start 03/05/17 at 10:00 Sertraline HCl (Zoloft) 150 mg DAILY PO ; Start 03/06/17 at 09:00; Status UNV Guaifenesin/ Codeine Phosphate (Robitussin Ac) 5 ml PRN Q6HRS PRN PO COUGH; Start 03/05/17 at 09:45 Albuterol Sulfate (Ventolin Neb Soln) 2.5 mg RTQID NEB ; Start 03/05/17 at 12:00 Acetaminophen/ Hydrocodone Bitart (Lortab 5/325) 1 tab PRN Q6HRS PRN PO pain; Start 03/05/17 at 09:45 Active Scripts Active [place] 5-325 Tablet (Acetaminophen/Hydrocodone Bitart) 1 Each Tablet 1 Tab PO PRN Q6HRS PRN Levaquin (Levofloxacin) 500 Mg Tablet 500 Mg PO DAILY06 5 Days [guaiFENesin/CODEINE 100mg/10mg] 5 ML Liquid 5 Ml PO PRN Q6HRS PRN 7 Days Reported Ranitidine Hcl 300 Mg Tablet 1 Tab PO BID Not given here Take again tonight Zoloft (Sertraline Hcl) 100 Mg Tablet 150 Mg PO DAILY Gave dose today Take again tomorrow Albuterol Sulfate Hfa Inhaler (Albuterol Sulfate) 8.5 Gm Hfa.aer.ad 2 Puff INH QID Not given on this admission Take again as previously scheduled Allergies Allergies: Coded Allergies: Penicillins (Verified Allergy, Intermediate, SWEATING, 04/01/14) cephalexin (Verified Allergy, Intermediate, SWEATING, 04/01/14) dicyclomine (Verified Allergy, Intermediate, 11/04/16) ketorolac (Verified Allergy, Intermediate, 07/26/16) sulfamethoxazole (Verified Allergy, Intermediate, SWEATING, 04/01/14) tramadol (Verified Allergy, Intermediate, SWEATING, 04/01/14) trimethoprim (Verified Allergy, Intermediate, SWEATING, 04/01/14) ROS General: No: Chills, Night Sweats, Fatigue, Malaise, Appetite, Other PSYCHOLOGICAL ROS: No: Anxiety, Behavioral Disorder, Concentration difficultie , Decreased libido, Depression, Disorientation, Hallucinations, Hostility, Irritablity, Memory difficulties, Mood Swings, Obsessive thoughts, Physical abuse, Sexual abuse, Sleep disturbances, Suicidal ideation, Other Eyes: No Blurry vision, No Decreased vision, No Double vision, No Dry eyes, No Excessive tearing, No Eye Pain, No Itchy Eyes, No Loss of vision, No Photophobia , No Scotomata, No Uses contacts, No Uses glasses, No Other HEENT: No: Heacaches, Visual Changes, Hearing change, Nasal congestion, Nasal discharge, Oral lesions, Sinus pain, Sore Throat, Epistaxis, Sneezing, Snoring, Tinnitus, Vertigo, Vocal changes, Other ALLERGY AND IMMUNOLOGY: No: Hives, Insect Bite Sensitivity, Itchy/Watery Eyes, Nasal Congestion, Post Nasal Drip, Seasonal Allergies, Other Hematological and Lymphatic: No: Bleeding Problems, Blood Clots, Blood Transfusions, Brusing, Night Sweats, Pallor, Swollen Lymph Nodes, Other ENDOCRINE: No: Breast Changes, Galactorrhea, Hair Pattern Changes, Hot Flashes , Malaise/lethargy, Mood Swings, Palpitations, Polydipsia/polyuria, Skin Changes , Temperature Intolerance, Unexpected Weight Changes, Other Breast: No New/Changing Breast Lumps, No Nipple changes, No Nipple discharge, No Other Respiratory: No: Cough, Hemoptysis, Orthopnea, Pleuritic Pain, Shortness of breath, SOB with excertion, Sputum Changes, Stridor, Tachypnea, Wheezing, Other Cardiovascular: yes Chest Pain Gastrointestinal: No Nausea, No Vomiting, No Abdominal Pain, No Diarrhea, No Constipation, No Melena, No Hematochezia, No Other Genitourinary: No Dysuria, No Frequency, No Incontinence, No Hematuria, No Retention, No Discharge, No Urgency, No Pain, No Flank Pain, No Other, No , No , No , No , No , No , No Musculoskeletal: No Gait Disturbance, No Joint Pain, No Joint Stiffness, No Joint Swelling, No Muscle Pain, No Muscular Weakness, No Pain In:, No Swelling In:, No Other Neurological: No Behavorial Changes, No Bowel/Bladder ControlChng, No Confusion , No Dizziness, No Gait Disturbance, No Headaches, No Impaired Coord/balance, No Memory Loss, No Numbness/Tingling, No Seizures, No Speech Problems, No Tremors, No Visual Changes, No Weakness, No Other Physical Exam General: Alert, Oriented X3, Cooperative, No acute distress HEENT: Atraumatic, PERRLA Lungs: Clear to auscultation, Normal air movement Heart: S1S2, RRR, no thrills, no rubs Cardiovascular: S1, S2 Breasts: Normal, Rt breast nml w/o mass, Lt breast nml w/o mass, Nipples normal Abdomen: Normal bowel sounds, Soft, No tenderness, No hepatosplenomegaly, No masses Rectal Exam: not examined PELVIC: Nml ext genitalia Extremities: No clubbing, No cyanosis, No edema, Normal pulses, No tenderness/ swelling Skin: No rashes, No breakdown, No significant lesion Neuro: Normal gait, Normal speech, Strength at 5/5 X4 ext, Normal tone, Sensation intact, Cranial nerves 3-12 NL, Reflexes 2+ Psych/Mental Status: Mental status NL, Mood NL Vitals Vitals Vital Signs Date Time Temp Pulse Resp B/P (MAP) Pulse Ox O2 Delivery O2 Flow Rate FiO2 03/05/17 09:02 84 18 129/80 (96) 97 Room Air 03/05/17 07:26 97.6 97.6 Labs Labs Laboratory Tests Test 03/05/17 07:26 7/7/17 08:03 03/05/17 08:43 White Blood Count 7.7 x10^3/uL (4.0-11.0) Red Blood Count 4.51 x10^6/uL (3.50-5.40) Hemoglobin 13.5 g/dL (12.0-15.5) Hematocrit 39.9 % (36.0-47.0) Mean Corpuscular Volume 88 fL (79-100) Mean Corpuscular Hemoglobin 30 pg (25-35) Mean Corpuscular Hemoglobin Concent 34 g/dL (31-37) Red Cell Distribution Width 13.5 % (11.5-14.5) Platelet Count 151 x10^3/uL (140-400) Neutrophils (%) (Auto) 59 % (31-73) Lymphocytes (%) (Auto) 30 % (24-48) Monocytes (%) (Auto) 8 % (0-9) Eosinophils (%) (Auto) 3 % (0-3) Basophils (%) (Auto) 1 % (0-3) Neutrophils # (Auto) 4.5 x10^3uL (1.8-7.7) Lymphocytes # (Auto) 2.3 x10^3/uL (1.0-4.8) Monocytes # (Auto) 0.6 x10^3/uL (0.0-1.1) Eosinophils # (Auto) 0.2 x10^3/uL (0.0-0.7) Basophils # (Auto) 0.1 x10^3/uL (0.0-0.2) Sodium Level 144 mmol/L (136-145) Potassium Level 3.3 mmol/L (3.5-5.1) Chloride Level 105 mmol/L (98-107) Carbon Dioxide Level 27 mmol/L (21-32) Anion Gap 12 (6-14) Blood Urea Nitrogen 13 mg/dL (7-20) Creatinine 0.9 mg/dL (0.6-1.0) Estimated GFR (Cockcroft-Gault) 70.8 BUN/Creatinine Ratio 14 (6-20) Glucose Level 147 mg/dL (70-99) Calcium Level 8.9 mg/dL (8.5-10.1) Total Bilirubin 0.3 mg/dL (0.2-1.0) Aspartate Amino Transf (AST/SGOT) 48 U/L (15-37) Alanine Aminotransferase (ALT/SGPT) 88 U/L (14-59) Alkaline Phosphatase 114 U/L (46-116) Troponin I Quantitative < 0.017 ng/mL (0.000-0.055) Total Protein 7.1 g/dL (6.4-8.2) Albumin 3.8 g/dL (3.4-5.0) Albumin/Globulin Ratio 1.2 (1.0-1.7) Urine Collection Type U cath Urine Color Yellow Urine Clarity Clear Urine pH 5.5 Urine Specific [place] >=1.030 Urine Protein Negative mg/dL (NEG-TRACE) Urine Glucose (UA) Negative mg/dL (NEG) Urine Ketones (Stick) Negative mg/dL (NEG) Urine Blood Negative (NEG) Urine Nitrite Negative (NEG) Urine Bilirubin Negative (NEG) Urine Urobilinogen Dipstick 0.2 mg/dL (0.2 mg/dL) Urine Leukocyte Esterase Negative (NEG) Urine RBC 0 /HPF (0-2) Urine WBC 0 /HPF (0-4) Urine Squamous Epithelial Cells Few /LPF Urine Bacteria 0 /HPF (0-FEW) Urine Mucus Mod /LPF D-Dimer (Felecia) 0.37 ug/mlFEU (0.00-0.50) Laboratory Tests Test 03/05/17 07:26 03/05/17 08:03 03/05/17 08:43 White Blood Count 7.7 x10^3/uL (4.0-11.0) Red Blood Count 4.51 x10^6/uL (3.50-5.40) Hemoglobin 13.5 g/dL (12.0-15.5) Hematocrit 39.9 % (36.0-47.0) Mean Corpuscular Volume 88 fL (79-100) Mean Corpuscular Hemoglobin 30 pg (25-35) Mean Corpuscular Hemoglobin Concent 34 g/dL (31-37) Red Cell Distribution Width 13.5 % (11.5-14.5) Platelet Count 151 x10^3/uL (140-400) Neutrophils (%) (Auto) 59 % (31-73) Lymphocytes (%) (Auto) 30 % (24-48) Monocytes (%) (Auto) 8 % (0-9) Eosinophils (%) (Auto) 3 % (0-3) Basophils (%) (Auto) 1 % (0-3) Neutrophils # (Auto) 4.5 x10^3uL (1.8-7.7) Lymphocytes # (Auto) 2.3 x10^3/uL (1.0-4.8) Monocytes # (Auto) 0.6 x10^3/uL (0.0-1.1) Eosinophils # (Auto) 0.2 x10^3/uL (0.0-0.7) Basophils # (Auto) 0.1 x10^3/uL (0.0-0.2) Sodium Level 144 mmol/L (136-145) Potassium Level 3.3 mmol/L (3.5-5.1) Chloride Level 105 mmol/L (98-107) Carbon Dioxide Level 27 mmol/L (21-32) Anion Gap 12 (6-14) Blood Urea Nitrogen 13 mg/dL (7-20) Creatinine 0.9 mg/dL (0.6-1.0) Estimated GFR (Cockcroft-Gault) 70.8 BUN/Creatinine Ratio 14 (6-20) Glucose Level 147 mg/dL (70-99) Calcium Level 8.9 mg/dL (8.5-10.1) Total Bilirubin 0.3 mg/dL (0.2-1.0) Aspartate Amino Transf (AST/SGOT) 48 U/L (15-37) Alanine Aminotransferase (ALT/SGPT) 88 U/L (14-59) Alkaline Phosphatase 114 U/L (46-116) Troponin I Quantitative < 0.017 ng/mL (0.000-0.055) Total Protein 7.1 g/dL (6.4-8.2) Albumin 3.8 g/dL (3.4-5.0) Albumin/Globulin Ratio 1.2 (1.0-1.7) Urine Collection Type U cath Urine Color Yellow Urine Clarity Clear Urine pH 5.5 Urine Specific [place] >=1.030 Urine Protein Negative mg/dL (NEG-TRACE) Urine Glucose (UA) Negative mg/dL (NEG) Urine Ketones (Stick) Negative mg/dL (NEG) Urine Blood Negative (NEG) Urine Nitrite Negative (NEG) Urine Bilirubin Negative (NEG) Urine Urobilinogen Dipstick 0.2 mg/dL (0.2 mg/dL) Urine Leukocyte Esterase Negative (NEG) Urine RBC 0 /HPF (0-2) Urine WBC 0 /HPF (0-4) Urine Squamous Epithelial Cells Few /LPF Urine Bacteria 0 /HPF (0-FEW) Urine Mucus Mod /LPF D-Dimer (Felecia) 0.37 ug/mlFEU (0.00-0.50) VTE Prophylaxis Ordered VTE Prophylaxis Devices: Yes VTE Pharmacological Prophylaxi: Yes Assessment/Plan Assessment/Plan 1. CP non cardiac in nature, could be GERD likely r/o PUD or non ulcer dyspepsia 2. MOrbid obesity 3. Possible undiagnosed MARTIN 4. Depression NOS PLAN: NO need to admit Can do Prevacid OTC GI number and names given to her Dw ER mid level Seen at ER - signif time, back and forth DAKOTA VALDEZ MD Mar 05, 2017 10:37
--- NOTE | 2017-03-05 10:38 | PDOC3 ---
Discharge Summary Visit Information Date of Admission: Mar 05, 2017 Date of Discharge: Mar 05, 2017 Admitting Diagnosis Comment: 1. CP non cardiac in nature, could be GERD likely r/o PUD or non ulcer dyspepsia 2. MOrbid obesity 3. Possible undiagnosed MARTIN 4. Depression NOS PLAN: NO need to admit Can do Prevacid OTC GI number and names given to her Dw ER mid level Seen at ER - signif time, back and forth Final Diagnosis Problems Medical Problems: (1) Chest pain Status: Acute Brief Hospital Course Allergies Allergies Coded Allergies Type Severity Reaction Last Updated Verified Penicillins Allergy Intermediate SWEATING 04/01/14 Yes cephalexin Allergy Intermediate SWEATING 04/01/14 Yes dicyclomine Allergy Intermediate 11/04/16 Yes ketorolac Allergy Intermediate 07/26/16 Yes sulfamethoxazole Allergy Intermediate SWEATING 04/01/14 Yes tramadol Allergy Intermediate SWEATING 04/01/14 Yes trimethoprim Allergy Intermediate SWEATING 04/01/14 Yes Vital Signs Vital Signs Date Time Temp Pulse Resp B/P (MAP) Pulse Ox O2 Delivery O2 Flow Rate FiO2 03/05/17 09:02 84 18 129/80 (96) 97 Room Air 03/05/17 07:26 97.6 97.6 Lab Results Laboratory Tests Test 03/05/17 07:26 03/05/17 08:03 03/05/17 08:43 White Blood Count 7.7 x10^3/uL (4.0-11.0) Red Blood Count 4.51 x10^6/uL (3.50-5.40) Hemoglobin 13.5 g/dL (12.0-15.5) Hematocrit 39.9 % (36.0-47.0) Mean Corpuscular Volume 88 fL (79-100) Mean Corpuscular Hemoglobin 30 pg (25-35) Mean Corpuscular Hemoglobin Concent 34 g/dL (31-37) Red Cell Distribution Width 13.5 % (11.5-14.5) Platelet Count 151 x10^3/uL (140-400) Neutrophils (%) (Auto) 59 % (31-73) Lymphocytes (%) (Auto) 30 % (24-48) Monocytes (%) (Auto) 8 % (0-9) Eosinophils (%) (Auto) 3 % (0-3) Basophils (%) (Auto) 1 % (0-3) Neutrophils # (Auto) 4.5 x10^3uL (1.8-7.7) Lymphocytes # (Auto) 2.3 x10^3/uL (1.0-4.8) Monocytes # (Auto) 0.6 x10^3/uL (0.0-1.1) Eosinophils # (Auto) 0.2 x10^3/uL (0.0-0.7) Basophils # (Auto) 0.1 x10^3/uL (0.0-0.2) Sodium Level 144 mmol/L (136-145) Potassium Level 3.3 mmol/L (3.5-5.1) Chloride Level 105 mmol/L (98-107) Carbon Dioxide Level 27 mmol/L (21-32) Anion Gap 12 (6-14) Blood Urea Nitrogen 13 mg/dL (7-20) Creatinine 0.9 mg/dL (0.6-1.0) Estimated GFR (Cockcroft-Gault) 70.8 BUN/Creatinine Ratio 14 (6-20) Glucose Level 147 mg/dL (70-99) Calcium Level 8.9 mg/dL (8.5-10.1) Total Bilirubin 0.3 mg/dL (0.2-1.0) Aspartate Amino Transf (AST/SGOT) 48 U/L (15-37) Alanine Aminotransferase (ALT/SGPT) 88 U/L (14-59) Alkaline Phosphatase 114 U/L (46-116) Troponin I Quantitative < 0.017 ng/mL (0.000-0.055) Total Protein 7.1 g/dL (6.4-8.2) Albumin 3.8 g/dL (3.4-5.0) Albumin/Globulin Ratio 1.2 (1.0-1.7) Urine Collection Type U cath Urine Color Yellow Urine Clarity Clear Urine pH 5.5 Urine Specific Rawlings >=1.030 Urine Protein Negative mg/dL (NEG-TRACE) Urine Glucose (UA) Negative mg/dL (NEG) Urine Ketones (Stick) Negative mg/dL (NEG) Urine Blood Negative (NEG) Urine Nitrite Negative (NEG) Urine Bilirubin Negative (NEG) Urine Urobilinogen Dipstick 0.2 mg/dL (0.2 mg/dL) Urine Leukocyte Esterase Negative (NEG) Urine RBC 0 /HPF (0-2) Urine WBC 0 /HPF (0-4) Urine Squamous Epithelial Cells Few /LPF Urine Bacteria 0 /HPF (0-FEW) Urine Mucus Mod /LPF D-Dimer (Felecia) 0.37 ug/mlFEU (0.00-0.50) Laboratory Tests Test 03/05/17 07:26 03/05/17 08:03 03/05/17 08:43 White Blood Count 7.7 x10^3/uL (4.0-11.0) Red Blood Count 4.51 x10^6/uL (3.50-5.40) Hemoglobin 13.5 g/dL (12.0-15.5) Hematocrit 39.9 % (36.0-47.0) Mean Corpuscular Volume 88 fL (79-100) Mean Corpuscular Hemoglobin 30 pg (25-35) Mean Corpuscular Hemoglobin Concent 34 g/dL (31-37) Red Cell Distribution Width 13.5 % (11.5-14.5) Platelet Count 151 x10^3/uL (140-400) Neutrophils (%) (Auto) 59 % (31-73) Lymphocytes (%) (Auto) 30 % (24-48) Monocytes (%) (Auto) 8 % (0-9) Eosinophils (%) (Auto) 3 % (0-3) Basophils (%) (Auto) 1 % (0-3) Neutrophils # (Auto) 4.5 x10^3uL (1.8-7.7) Lymphocytes # (Auto) 2.3 x10^3/uL (1.0-4.8) Monocytes # (Auto) 0.6 x10^3/uL (0.0-1.1) Eosinophils # (Auto) 0.2 x10^3/uL (0.0-0.7) Basophils # (Auto) 0.1 x10^3/uL (0.0-0.2) Sodium Level 144 mmol/L (136-145) Potassium Level 3.3 mmol/L (3.5-5.1) Chloride Level 105 mmol/L (98-107) Carbon Dioxide Level 27 mmol/L (21-32) Anion Gap 12 (6-14) Blood Urea Nitrogen 13 mg/dL (7-20) Creatinine 0.9 mg/dL (0.6-1.0) Estimated GFR (Cockcroft-Gault) 70.8 BUN/Creatinine Ratio 14 (6-20) Glucose Level 147 mg/dL (70-99) Calcium Level 8.9 mg/dL (8.5-10.1) Total Bilirubin 0.3 mg/dL (0.2-1.0) Aspartate Amino Transf (AST/SGOT) 48 U/L (15-37) Alanine Aminotransferase (ALT/SGPT) 88 U/L (14-59) Alkaline Phosphatase 114 U/L (46-116) Troponin I Quantitative < 0.017 ng/mL (0.000-0.055) Total Protein 7.1 g/dL (6.4-8.2) Albumin 3.8 g/dL (3.4-5.0) Albumin/Globulin Ratio 1.2 (1.0-1.7) Urine Collection Type U cath Urine Color Yellow Urine Clarity Clear Urine pH 5.5 Urine Specific [place] >=1.030 Urine Protein Negative mg/dL (NEG-TRACE) Urine Glucose (UA) Negative mg/dL (NEG) Urine Ketones (Stick) Negative mg/dL (NEG) Urine Blood Negative (NEG) Urine Nitrite Negative (NEG) Urine Bilirubin Negative (NEG) Urine Urobilinogen Dipstick 0.2 mg/dL (0.2 mg/dL) Urine Leukocyte Esterase Negative (NEG) Urine RBC 0 /HPF (0-2) Urine WBC 0 /HPF (0-4) Urine Squamous Epithelial Cells Few /LPF Urine Bacteria 0 /HPF (0-FEW) Urine Mucus Mod /LPF D-Dimer (Felecia) 0.37 ug/mlFEU (0.00-0.50) Brief Hospital Course Ms. Hayes is a 37 old [sex] who presented with [ ] 37 y.o F morbidly obese with BMI 46, comes in for CP 4:30 AM woke her up from sleep., Looking at old records was just here 1-2 mos ago, had MPI which was low risk study, EF 70%,sent home, 2 mos ago was also seen here by GI< for "CP". She claims it moves to her left shoulder, no diaphoresis,she seems to like her narcs , EKG and trops neg, SHe claims she does take 300 mgs ranitidine no relief, and was on Protonix x 3 yrs, no relief. SHe has never seen GI as OP or scopes before,. she comes to be admitted instead, After going thru everything with her, reading her MPI to her and saying i am cancelling cards and getting gI instead, and educating her heavy about causes of CP and importance for her to lose weight, she now decides not to be admitted - which is totally appropriate, Dw ER [employer], mid level, gave pt name of GI doc and number,. NO need to sign AMA I did see patient, reviewed labs, and educated her and wrote notes. Seen at ER 17 Discharge Information Condition at Discharge: Improved, Stable Disposition/Orders: D/C to Home Scheduled Albuterol Sulfate (Albuterol Sulfate Hfa Inhaler), 2 PUFF INH QID, (Reported) Levofloxacin (Levaquin), 500 MG PO DAILY06 Ranitidine Hcl (Ranitidine Hcl), 1 TAB PO BID, (Reported) Sertraline Hcl (Zoloft), 150 MG PO DAILY, (Reported) Scheduled PRN Hydrocodone/Apap 5-325 (Center 5-325 Tablet), 1 TAB PO PRN Q6HRS PRN for PAIN [guaiFENesin/CODEINE 100mg/10mg], 5 ML PO PRN Q6HRS PRN for COUGH DAKOTA VALDEZ MD Mar 05, 2017 10:38
[2017-03-05] MEDS ORDERED: ALBUTEROL SULFATE 2.5 MG/3 ML NEBU. NEB SCH (12:00)
--- NOTE | 2017-03-05 12:08 | EKG ---
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
[2017-03-05] MEDS ORDERED: SERTRALINE 50 MG TABLET. PO SCH (13:00)
[2017-03-05] MEDS ORDERED: ALBUTEROL SULFATE 8GM INHALER. INH SCH (13:00)
== END 2017-03-05 10:10 | disposition other institution (70) ==
LOC: ER 07:11
DX: R07.89 Other chest pain (principal); J45.909 Unspecified asthma, uncomplicated; F31.9 Bipolar disorder, unspecified; K21.9 Gastro-esophageal reflux disease without esophagitis; R16.0 Hepatomegaly, not elsewhere classified; E66.01 Morbid (severe) obesity due to excess calories; F17.210 Nicotine dependence, cigarettes, uncomplicated; Z88.0 Allergy status to penicillin; Z88.1 Allergy status to other antibiotic agents; Z88.5 Allergy status to narcotic agent; Z88.2 Allergy status to sulfonamides; Z88.8 Allergy status to other drugs, medicaments and biological substances; Z68.42 Body mass index [BMI] 45.0-49.9, adult; Z87.442 Personal history of urinary calculi; Z90.49 Acquired absence of other specified parts of digestive tract; Z90.710 Acquired absence of both cervix and uterus
CPT/HCPCS: 36415; 71010; 80053; 81001; 84484; 85027; 85379; 93005; 96374; 96376; 99285; J2270; Q0162

== ENCOUNTER 2017-03-08 02:45 | Emergency (ER) | payer MEDICAID ==
[~2017-03-08] VITALS: Ht 162.6 cm; Wt 149.7 kg
[2017-03-08 03:13] LABS: BASO # 0.1 x10^3/uL (0.0-0.2); BASO % 1 % (0-3); EOS % 3 % (0-3); HEMATOCRIT 41.4 % (36.0-47.0); LYMPH # 2.3 x10^3/uL (1.0-4.8); LYMPH % 26 % (24-48); MEAN CORPUSCULAR HEMOGLOBIN 30 pg (25-35); MEAN CORPUSCULAR HGB CONC 34 g/dL (31-37); MEAN CORPUSCULAR VOLUME 89 fL (79-100); MONO % 10 % (0-9); NEUT % 61 % (31-73); PLATELET COUNT 159 x10^3/uL (140-400); RED BLOOD COUNT 4.67 x10^6/uL (3.50-5.40); RED CELL DISTRIBUTION WIDTH 13.4 % (11.5-14.5); WHITE BLOOD COUNT 8.8 x10^3/uL (4.0-11.0)
[2017-03-08] MEDS ORDERED: ONDANSETRON PF 4 MG/2 ML VIAL. ONE (03:15)
[2017-03-08 03:25] LABS: CALCIUM 9.4 mg/dL (8.5-10.1); CREATININE 0.9 mg/dL (0.6-1.0); GFR 70.8; POTASSIUM 3.7 mmol/L (3.5-5.1)
[2017-03-08] MEDS ORDERED: ONDANSETRON ODT 4 MG TAB.RAPDIS. PO ONE (03:30)
[2017-03-08] MEDS ORDERED: ONDANSETRON PF 4 MG/2 ML VIAL. IV ONE (03:30)
[2017-03-08] MEDS ORDERED: NITROGLYCERIN SUBLINGUAL 0.4 MG BOTTLE OF 25. SL PRN (03:45)
[2017-03-08] MEDS ORDERED: HYDROmorphone 2 MG/ML VIAL IV PRN (04:00)
[2017-03-08 04:13] VITALS: BP 138/68
--- NOTE | 2017-03-08 04:30 | PHYS DOC ---
Past Medical History Past Medical History: Asthma, Bipolar, GERD, Kidney Stone, Pancreatitis, Other Additional Past Medical Histor: ENLARGED LIVER,hirtuism Past Surgical History: Cholecystectomy, Hysterectomy, Tonsillectomy, Other Additional Past Surgical Histo: CYST REMOVED ON TAILBONE Alcohol Use: None Drug Use: None Adult General Chief Complaint Chief Complaint: CHEST PAIN HPI HPI 67-year-old female presenting to the emergency department today with left sided chest pain that is sharp nonradiating intermittent and radiating to the left arm. It started about an hour prior to arrival. She has a history of smoking. She denies hypertension, diabetes, or high cholesterol. She denies unilateral leg swelling hemoptysis or family or personal history of blood clotting disorders. Review of systems was negative for abdominal pain nausea vomiting or diaphoresis. She denies fevers or chills. All other review of systems is negative unless otherwise noted in history of present illness. ED course: 37-year-old female presenting to the emergency department with chest pain. EKG unremarkable. Chest x-ray unremarkable. Blood work obtained which showed a negative troponin. Nitroglycerin did not improve the patient's symptoms. Hydromorphone did improve the patient's symptoms significantly. On reexamination the patient was feeling much better and subsequently discharged home. The patient was then discharged home in stable condition to follow up with their primary care physician over the next 2-3 days. They were to return if their symptoms worsened or if they were concerned for any reason. Face-to- face discharge instructions and return precautions were given. Patient's questions were answered to their satisfaction. Patient is comfortable plan. Review of Systems Review of Systems SEE ABOVE. Current Medications Current Medications Current Medications Medications (Trade) Dose Ordered Sig/Rod Start Time Stop Time Status Last Admin Dose Admin Hydromorphone HCl (Dilaudid) 0.5 mg PRN Q30MIN PRN 03/08/17 04:00 03/08/17 04:51 DC 03/08/17 04:09 0.5 MG Nitroglycerin (Nitrostat) 0.4 mg PRN Q5MIN PRN 03/08/17 03:45 03/08/17 04:51 DC 03/08/17 04:13 0.4 MG Ondansetron HCl (Zofran Odt) 4 mg 1X ONCE 03/08/17 03:30 03/08/17 03:30 DC Ondansetron HCl (Zofran) 4 mg 1X ONCE 03/08/17 03:30 03/08/17 03:41 DC 03/08/17 03:20 4 MG Allergies Allergies Allergies Coded Allergies Type Severity Reaction Last Updated Verified Penicillins Allergy Intermediate SWEATING 04/01/14 Yes cephalexin Allergy Intermediate SWEATING 04/01/14 Yes dicyclomine Allergy Intermediate 11/04/16 Yes ketorolac Allergy Intermediate 07/26/16 Yes sulfamethoxazole Allergy Intermediate SWEATING 04/01/14 Yes tramadol Allergy Intermediate SWEATING 04/01/14 Yes trimethoprim Allergy Intermediate SWEATING 04/01/14 Yes Physical Exam Physical Exam SEE ABOVE Constitutional: Well developed, well nourished, no acute distress, non-toxic appearance. [] HENT: Normocephalic, atraumatic, bilateral external ears normal, oropharynx moist, no oral exudates, nose normal. [] Eyes: PERRLA, EOMI, conjunctiva normal, no discharge. [] Neck: Normal range of motion, no tenderness, supple, no stridor. [] Cardiovascular:Heart rate regular rhythm, no murmur [] Lungs & Thorax: Bilateral breath sounds clear to auscultation [] Abdomen: Bowel sounds normal, soft, no tenderness, no masses, no pulsatile masses. [] Skin: Warm, dry, no erythema, no rash. [] Back: No tenderness, no CVA tenderness. [] Extremities: No tenderness, no cyanosis, no clubbing, ROM intact, no edema. [] Neurologic: Alert and oriented X 3, normal motor function, normal sensory function, no focal deficits noted. [] Psychologic: Affect normal, judgement normal, mood normal. [] Current Patient Data Vital Signs Vital Signs Date Time Temp Pulse Resp B/P (MAP) Pulse Ox O2 Delivery O2 Flow Rate FiO2 03/08/17 04:13 102 19 138/68 (91) 97 Room Air 03/08/17 02:53 98.7 98.7 Lab Values Laboratory Tests Test 03/08/17 02:53 White Blood Count 8.8 x10^3/uL (4.0-11.0) Red Blood Count 4.67 x10^6/uL (3.50-5.40) Hemoglobin 14.0 g/dL (12.0-15.5) Hematocrit 41.4 % (36.0-47.0) Mean Corpuscular Volume 89 fL (79-100) Mean Corpuscular Hemoglobin 30 pg (25-35) Mean Corpuscular Hemoglobin Concent 34 g/dL (31-37) Red Cell Distribution Width 13.4 % (11.5-14.5) Platelet Count 159 x10^3/uL (140-400) Neutrophils (%) (Auto) 61 % (31-73) Lymphocytes (%) (Auto) 26 % (24-48) Monocytes (%) (Auto) 10 % (0-9) H Eosinophils (%) (Auto) 3 % (0-3) Basophils (%) (Auto) 1 % (0-3) Neutrophils # (Auto) 5.3 x10^3uL (1.8-7.7) Lymphocytes # (Auto) 2.3 x10^3/uL (1.0-4.8) Monocytes # (Auto) 0.8 x10^3/uL (0.0-1.1) Eosinophils # (Auto) 0.3 x10^3/uL (0.0-0.7) Basophils # (Auto) 0.1 x10^3/uL (0.0-0.2) Sodium Level 142 mmol/L (136-145) Potassium Level 3.7 mmol/L (3.5-5.1) Chloride Level 104 mmol/L (98-107) Carbon Dioxide Level 29 mmol/L (21-32) Anion Gap 9 (6-14) Blood Urea Nitrogen 13 mg/dL (7-20) Creatinine 0.9 mg/dL (0.6-1.0) Estimated GFR (Cockcroft-Gault) 70.8 Glucose Level 115 mg/dL (70-99) H Calcium Level 9.4 mg/dL (8.5-10.1) Troponin I Quantitative < 0.017 ng/mL (0.000-0.055) Laboratory Tests 03/08/17 02:53 Laboratory Tests 03/08/17 02:53 EKG EKG [] Radiology/Procedures Radiology/Procedures [] Course & Med Decision Making Course & Med Decision Making Pertinent Labs and Imaging studies reviewed. (See chart for details) [] Dragon Disclaimer Dragon Disclaimer This electronic medical record was generated, in whole or in part, using a voice recognition dictation system. Departure Departure Impression: Primary Impression: Chest pain Disposition: HOME, SELF-CARE Condition: STABLE Referrals: NO PCP (PCP) Patient Instructions: Chest Pain (Nonspecific) Additional Instructions: Thank you for allowing us to participate in your care today. Followup with your primary care physician in 3 days if your symptoms do not improve. Call your Primary Doctor tomorrow and inform them of your visit today. If you do not have a primary care provider you can ask for a list of our primary care providers. Return to the emergency department you have any new or concerning findings. This should be evaluated by the primary care physician and any necessary consulting services for continued management within a few days after discharge. Return to emergency room if you have any new or concerning symptoms including but not limited to fever, chills, nausea, vomiting, intractable pain, any new rashes, chest pain, shortness of air, uncontrolled bleeding, difficulty breathing, and/or vision loss. WENDY DUKE MD Mar 08, 2017 04:30
--- NOTE | 2017-03-08 06:14 | EKG ---
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
--- NOTE | 2017-03-08 07:12 | RAD ---
Chest, 2 views, 03/08/2017: History: Chest pain Comparison is made to a study from 03/05/2017. The heart size and pulmonary vascularity are normal. No pulmonary infiltrates are seen. There is no evidence of pleural fluid. IMPRESSION: No acute cardiopulmonary abnormality is detected.
== END 2017-03-08 04:47 | disposition home or self-care (01) ==
LOC: ER 02:45
DX: R07.89 Other chest pain (principal); J45.909 Unspecified asthma, uncomplicated; F31.9 Bipolar disorder, unspecified; K21.9 Gastro-esophageal reflux disease without esophagitis; R16.0 Hepatomegaly, not elsewhere classified; Z90.49 Acquired absence of other specified parts of digestive tract; Z90.710 Acquired absence of both cervix and uterus; Z87.891 Personal history of nicotine dependence; Z87.442 Personal history of urinary calculi; Z88.0 Allergy status to penicillin; Z88.1 Allergy status to other antibiotic agents; Z88.5 Allergy status to narcotic agent; Z88.2 Allergy status to sulfonamides; Z88.8 Allergy status to other drugs, medicaments and biological substances
CPT/HCPCS: 36415; 71020; 80048; 84484; 85027; 93005; 96374; 96375; 99285; J1170; J2405

== ENCOUNTER 2017-04-13 00:55 | Emergency (ER) | payer MEDICAID ==
[~2017-04-13] VITALS: Ht 180.3 cm; Wt 149.7 kg
--- NOTE | 2017-04-13 01:22 | PHYS DOC ---
Past Medical History Past Medical History: Asthma, Bipolar, GERD, Kidney Stone, Pancreatitis, Other Additional Past Medical Histor: ENLARGED LIVER,hirtuism Past Surgical History: Cholecystectomy, Hysterectomy, Tonsillectomy, Other Additional Past Surgical Histo: CYST REMOVED ON TAILBONE Alcohol Use: None Drug Use: None Adult General Chief Complaint Chief Complaint: ABDOMINAL PAIN HPI HPI Patient is a 37 year old female who presents with abdominal pain. She states this episode of pain started 2 weeks ago. Was seen in urgent care. She then noticed some black stools. She has been taking Pepto-Bismol however. The pain is mid abdomen and seems to be increased after she has a bowel movement. She said 8-12 bowel movements but over the past 2 weeks. They are not watery or loose. They are formed. With GI. It's not for several weeks. Review of Systems Review of Systems Constitutional: Denies fever or chills Eyes: Denies change in visual acuity, redness, or eye pain HENT: Denies nasal congestion or sore throat Respiratory: Denies cough or shortness of breath Cardiovascular: No chest pain GI: POS abdominal pain, NO nausea, vomiting, No grossly bloody stools or diarrhea; POS black stools : Denies dysuria or hematuria Musculoskeletal: Denies back pain or joint pain Integument: Denies rash or skin lesions Neurologic: Denies headache, focal weakness or sensory changes Current Medications Current Medications Current Medications Medications (Trade) Dose Ordered Sig/Rod Start Time Stop Time Status Last Admin Dose Admin Fentanyl Citrate (Fentanyl 2ml Vial) 50 mcg PRN Q15MIN PRN 04/13/17 01:45 04/14/17 01:44 Ondansetron HCl (Zofran) 4 mg 1X ONCE 04/13/17 01:45 04/13/17 01:46 DC 04/13/17 02:58 4 MG Sodium Chloride 1,000 ml @ 1,000 mls/hr Q1H 04/13/17 01:30 04/13/17 02:29 DC 04/13/17 02:15 1,000 MLS/HR Allergies Allergies Allergies Coded Allergies Type Severity Reaction Last Updated Verified Penicillins Allergy Intermediate SWEATING 04/01/14 Yes cephalexin Allergy Intermediate SWEATING 04/01/14 Yes dicyclomine Allergy Intermediate 11/04/16 Yes ketorolac Allergy Intermediate 07/26/16 Yes sulfamethoxazole Allergy Intermediate SWEATING 04/01/14 Yes tramadol Allergy Intermediate SWEATING 04/01/14 Yes trimethoprim Allergy Intermediate SWEATING 04/01/14 Yes Physical Exam Physical Exam Constitutional: Well developed, well nourished, no acute distress, non-toxic appearance. HENT: Normocephalic, atraumatic, bilateral external ears normal, oropharynx moist, no oral exudates, nose normal. Eyes: PERRLA, EOMI, conjunctiva normal, no discharge. Neck: Normal range of motion, no tenderness, supple, no stridor. Cardiovascular:Heart rate regular rhythm, no murmur Lungs & Thorax: Bilateral breath sounds clear to auscultation Abdomen: Bowel sounds normal, soft, no tenderness, no masses, no pulsatile masses. Rectal: normal tone; normal stone; no gross blood; occult negative per lab Skin: Warm, dry, no erythema, no rash. Back: No tenderness, no CVA tenderness. Extremities: No tenderness, no cyanosis, no clubbing, ROM intact, no edema. Neurologic: Alert and oriented X 3, normal motor function, normal sensory function, no focal deficits noted. Psychologic: Affect normal, judgement normal, mood normal. Current Patient Data Vital Signs Vital Signs Date Time Temp Pulse Resp B/P (MAP) Pulse Ox O2 Delivery O2 Flow Rate FiO2 04/13/17 01:14 98.4 99 24 189/93 (125) 99 Room Air 98.4 Lab Values Laboratory Tests Test 04/13/17 02:15 White Blood Count 8.2 x10^3/uL (4.0-11.0) Red Blood Count 4.61 x10^6/uL (3.50-5.40) Hemoglobin 13.8 g/dL (12.0-15.5) Hematocrit 40.6 % (36.0-47.0) Mean Corpuscular Volume 88 fL (79-100) Mean Corpuscular Hemoglobin 30 pg (25-35) Mean Corpuscular Hemoglobin Concent 34 g/dL (31-37) Red Cell Distribution Width 13.4 % (11.5-14.5) Platelet Count 170 x10^3/uL (140-400) Neutrophils (%) (Auto) 58 % (31-73) Lymphocytes (%) (Auto) 29 % (24-48) Monocytes (%) (Auto) 9 % (0-9) Eosinophils (%) (Auto) 4 % (0-3) H Basophils (%) (Auto) 1 % (0-3) Neutrophils # (Auto) 4.7 x10^3uL (1.8-7.7) Lymphocytes # (Auto) 2.4 x10^3/uL (1.0-4.8) Monocytes # (Auto) 0.7 x10^3/uL (0.0-1.1) Eosinophils # (Auto) 0.3 x10^3/uL (0.0-0.7) Basophils # (Auto) 0.1 x10^3/uL (0.0-0.2) Prothrombin Time 12.4 SEC (11.7-14.0) Prothrombin Time INR 1.0 (0.8-1.1) PTT 27 SEC (24-38) Stool Occult Blood Negative (NEG) Sodium Level 143 mmol/L (136-145) Potassium Level 3.8 mmol/L (3.5-5.1) Chloride Level 102 mmol/L (98-107) Carbon Dioxide Level 31 mmol/L (21-32) Anion Gap 10 (6-14) Blood Urea Nitrogen 13 mg/dL (7-20) Creatinine 0.9 mg/dL (0.6-1.0) Estimated GFR (Cockcroft-Gault) 70.8 Glucose Level 98 mg/dL (70-99) Calcium Level 9.1 mg/dL (8.5-10.1) Total Bilirubin 0.2 mg/dL (0.2-1.0) Direct Bilirubin 0.1 mg/dL (0.0-0.2) Aspartate Amino Transferase (AST) 44 U/L (15-37) H Alanine Aminotransferase (ALT) 100 U/L (14-59) H Alkaline Phosphatase 117 U/L (46-116) H Total Protein 7.8 g/dL (6.4-8.2) Albumin 3.6 g/dL (3.4-5.0) Lipase 193 U/L (73-393) Laboratory Tests 04/13/17 02:15 Laboratory Tests 04/13/17 02:15 Course & Med Decision Making Course & Med Decision Making Pertinent Labs and Imaging studies reviewed. (See chart for details) evaluated patient upon arrival. Lab unremarkable. Hemoccult negative. Rx: bentyl and patient has f/u w GI. She has NO evidence of acute surgical abdomen. Resting comfortably watching TV at discharge. I have spoken with the patient and/or caregivers. I have explained the patient' s condition, diagnosis and treatment plan based on the information available to me at this time. I have answered the patient's and/or caregiver's questions and addressed any concerns. The patient and/or caregivers have as good an understanding of the patient's diagnosis, condition and treatment plan as can be expected at this point. The patient's condition is stable and appropriate for discharge from the emergency department. The patient will pursue further outpatient evaluation with the primary care physician or other designated or consulting physician as outlined in the discharge instructions. The patient and/or caregivers are agreeable to this plan of care and follow-up instructions have been explained in detail. The patient and/or caregivers have received these instructions in written format and have expressed an understanding of the discharge instructions. The patient and/or caregivers are aware that any significant change in condition or worsening of symptoms should prompt an immediate return to this or the closest emergency department or a call to 911. Dragon Disclaimer Dragon Disclaimer This electronic medical record was generated, in whole or in part, using a voice recognition dictation system. Departure Departure Impression: Primary Impression: Abdominal pain Disposition: 01 HOME, SELF-CARE Condition: GOOD Referrals: NO PCP (PCP) Patient Instructions: Abdominal Pain Scripts Ondansetron (ZOFRAN ODT) 4 Mg Tab.rapdis 1 TAB SL Q8HRS, #15 TAB Prov: TATI PINZON MD 04/13/17 Problem Qualifiers Primary Impression: Abdominal pain Abdominal location: generalized Qualified Codes: R10.84 - Generalized abdominal pain TATI PINZON MD Apr 13, 2017 01:22
[2017-04-13] MEDS ORDERED: IV NORMAL SALINE 1000ML BAG 1,000 ML IV SCH (01:30)
[2017-04-13] MEDS ORDERED: fentaNYL PF VIAL 100 MCG/2 ML VIAL IV PRN (01:45)
[2017-04-13] MEDS ORDERED: ONDANSETRON PF 4 MG/2 ML VIAL. IV ONE (01:45)
[2017-04-13 02:34] LABS: BASO # 0.1 x10^3/uL (0.0-0.2); BASO % 1 % (0-3); EOS % 4 % (0-3); HEMATOCRIT 40.6 % (36.0-47.0); HEMOGLOBIN 13.8 g/dL (12.0-15.5); LYMPH # 2.4 x10^3/uL (1.0-4.8); LYMPH % 29 % (24-48); MEAN CORPUSCULAR HEMOGLOBIN 30 pg (25-35); MEAN CORPUSCULAR HGB CONC 34 g/dL (31-37); MEAN CORPUSCULAR VOLUME 88 fL (79-100); MONO % 9 % (0-9); NEUT % 58 % (31-73); PLATELET COUNT 170 x10^3/uL (140-400); RED BLOOD COUNT 4.61 x10^6/uL (3.50-5.40); RED CELL DISTRIBUTION WIDTH 13.4 % (11.5-14.5); WHITE BLOOD COUNT 8.2 x10^3/uL (4.0-11.0)
[2017-04-13 02:38] LABS: NEG OBC FOB NEG; POS OBC FOB POS
[2017-04-13 02:44] LABS: CALCIUM 9.1 mg/dL (8.5-10.1); CREATININE 0.9 mg/dL (0.6-1.0); GFR 70.8; POTASSIUM 3.8 mmol/L (3.5-5.1)
[2017-04-13 02:45] LABS: PROTHROMBIN TIME PATIENT 12.4 SEC (11.7-14.0)
[2017-04-13 02:52] LABS: ALBUMIN 3.6 g/dL (3.4-5.0); DIRECT BILIRUBIN 0.1 mg/dL (0.0-0.2); TOTAL BILIRUBIN 0.2 mg/dL (0.2-1.0); TOTAL PROTEIN 7.8 g/dL (6.4-8.2)
[2017-04-13] MEDS ORDERED: ONDA4TAB10 SL (03:21)
[2017-04-19 02:45] VITALS: BP 164/83
== END 2017-04-13 03:50 | disposition home or self-care (01) ==
LOC: ER 00:55
DX: R10.84 Generalized abdominal pain (principal); F31.9 Bipolar disorder, unspecified; J45.909 Unspecified asthma, uncomplicated; K21.9 Gastro-esophageal reflux disease without esophagitis; Z90.49 Acquired absence of other specified parts of digestive tract; Z90.710 Acquired absence of both cervix and uterus; Z87.442 Personal history of urinary calculi; Z88.0 Allergy status to penicillin; Z88.1 Allergy status to other antibiotic agents; Z88.2 Allergy status to sulfonamides; Z88.8 Allergy status to other drugs, medicaments and biological substances; Z88.6 Allergy status to analgesic agent
CPT/HCPCS: 36415; 80048; 80076; 82274; 83690; 85025; 85610; 85730; 96361; 96374; 99284; J2405; J7030

== ENCOUNTER 2017-07-10 00:40 | Emergency (ER) | payer MEDICAID ==
[2017-07-10 01:37] LABS: BILIRUBIN,URINE NEGATIVE (NEG); GLUCOSE,URINE NEGATIVE (NEG); NITRITE,URINE NEGATIVE (NEG); PROTEIN,URINE NEGATIVE (NEG-TRACE); UROBILINOGEN,URINE 0.2 mg/dL (0.2 mg/dL)
[2017-07-10 01:44] LABS: BACTERIA,URINE FEW /HPF (0-FEW); RBC,URINE 0 /HPF (0-2); SQUAMOUS EPITHELIAL CELL,UR MOD /LPF
--- NOTE | 2017-07-10 02:06 | PHYS DOC ---
Past Medical History Past Medical History: Asthma, Bipolar, GERD, Kidney Stone, Pancreatitis, Other Additional Past Medical Histor: ENLARGED LIVER,hirtuism Past Surgical History: Cholecystectomy, Hysterectomy, Tonsillectomy, Other Additional Past Surgical Histo: CYST REMOVED ON TAILBONE Alcohol Use: None Drug Use: None Adult General Chief Complaint Chief Complaint: FLANK PAIN [facility] HPI Patient is a 37 year old female who presents with complaint of right-sided flank pain. Patient states that she fell out of her bed approximately 2-1/2 feet to the ground. Patient states this took place approximately 4 hours ago. Patient states that her pain has been worsening along her right side since the fall. Patient states that the pain starts in her right flank and radiates towards her right groin. Patient states that she is had difficulty with ambulation secondary to her pain. Patient denies head injury or loss of consciousness. Patient rates her pain on my evaluation as 8 out of 10. Patient has not taken any medications for her symptoms. He states that the pain does worsen when she tries to bend at her right hip. Review of Systems Review of Systems Constitutional: Denies fever or chills [] Eyes: Denies change in visual acuity, redness, or eye pain [] HENT: Denies nasal congestion or sore throat [] Respiratory: Denies cough or shortness of breath [] Cardiovascular: No additional information not addressed in HPI [] GI: Denies abdominal pain, nausea, vomiting, bloody stools or diarrhea [] : Denies dysuria or hematuria [] Musculoskeletal: Denies back pain or joint pain [] Integument: Denies rash or skin lesions [] Neurologic: Denies headache, focal weakness or sensory changes [] Endocrine: Denies polyuria or polydipsia [] All other systems were reviewed and found to be within normal limits, except as documented in this note. Current Medications Current Medications Current Medications Medications (Trade) Dose Ordered Sig/Rod Start Time Stop Time Status Last Admin Dose Admin Acetaminophen (Tylenol) 650 mg 1X ONCE 07/10/17 02:30 07/10/17 02:31 DC 07/10/17 02:10 650 MG Cyclobenzaprine HCl (Flexeril) 10 mg 1X ONCE 07/10/17 02:30 07/10/17 02:31 DC 07/10/17 02:10 10 MG Allergies Allergies Allergies Coded Allergies Type Severity Reaction Last Updated Verified Penicillins Allergy Intermediate SWEATING 04/01/14 Yes cephalexin Allergy Intermediate SWEATING 04/01/14 Yes dicyclomine Allergy Intermediate 11/04/16 Yes ketorolac Allergy Intermediate 07/26/16 Yes sulfamethoxazole Allergy Intermediate SWEATING 04/01/14 Yes tramadol Allergy Intermediate SWEATING 04/01/14 Yes trimethoprim Allergy Intermediate SWEATING 04/01/14 Yes Physical Exam Physical Exam Constitutional: Alert, afebrile, morbidly obese, appears in moderate discomfort. [] HENT: Normocephalic, atraumatic, bilateral external ears normal, oropharynx moist, no oral exudates, nose normal. [] Eyes: PERRLA, EOMI, conjunctiva normal, no discharge. [] Neck: Normal range of motion, no tenderness, supple, no stridor. [] Cardiovascular:Heart rate regular rhythm, no murmur [] Lungs & Thorax: Bilateral breath sounds clear to auscultation [] Abdomen: Bowel sounds normal, soft, right anterior pubic tenderness to palpation , no masses, no pulsatile masses. [] Skin: Warm, dry, no erythema, no rash. [] Back: No midline tenderness, right flank tenderness, no CVA tenderness. [] Extremities: No tenderness, no cyanosis, no clubbing, ROM intact, no edema. [] Neurologic: Alert and oriented X 3, normal motor function, normal sensory function, no focal deficits noted. [] Current Patient Data Vital Signs Vital Signs Date Time Temp Pulse Resp B/P (MAP) Pulse Ox O2 Delivery O2 Flow Rate FiO2 07/10/17 01:11 98.4 118 24 142/96 (111) 95 Room Air 98.4 Lab Values Laboratory Tests Test 07/10/17 01:30 Urine Collection Type Unknown Urine Color Yellow Urine Clarity Clear Urine pH 7.0 Urine Specific Williams 1.020 Urine Protein Negative mg/dL (NEG-TRACE) Urine Glucose (UA) Negative mg/dL (NEG) Urine Ketones (Stick) Negative mg/dL (NEG) Urine Blood Negative (NEG) Urine Nitrite Negative (NEG) Urine Bilirubin Negative (NEG) Urine Urobilinogen Dipstick 0.2 mg/dL (0.2 mg/dL) Urine Leukocyte Esterase Moderate (NEG) Urine RBC 0 /HPF (0-2) Urine WBC 5-10 /HPF (0-4) Urine Squamous Epithelial Cells Mod /LPF Urine Bacteria Few /HPF (0-FEW) Urine Mucus Mod /LPF EKG EKG Not performed[] Radiology/Procedures Radiology/Procedures One view AP pelvis interpreted by me: No fractures, normal alignment, pelvic ring intact[] Course & Med Decision Making Course & Med Decision Making Pertinent Labs and Imaging studies reviewed. (See chart for details) Patient was given Flexeril and Tylenol in the emergency department for symptoms. Patient's x-rays negative for fracture. The patient has symptoms that may be consistent with possible radiculopathy as patient does note she had history of a back injury secondary to an accident. The patient's pain travels from her back towards her groin which could be consistent with a radicular pattern. For this reason, the patient will be started on Medrol Dosepak as well as [place] for outpatient treatment. Advise follow-up in 3-5 days a primary doctor and return to emergency department for any worsening symptoms. Patient voiced understanding and in agreement with treatment plan. Dragon Disclaimer Dragon Disclaimer This electronic medical record was generated, in whole or in part, using a voice recognition dictation system. Departure Departure Impression: Primary Impression: Lower back injury Disposition: HOME, SELF-CARE Condition: IMPROVED Referrals: NO PCP (PCP) Patient Instructions: Back Pain, Adult Additional Instructions: Follow-up with your primary doctor in 3-5 days for reevaluation. Return to the emergency department for any worsening symptoms. Scripts Hydrocodone/Apap 5-325 (NORCO 5-325 TABLET) 1 Each Tablet 1-2 TAB PO Q4-6HRS Y for PAIN, #20 TAB Prov: ELMER MORA MD 07/10/17 Methylprednisolone (MEDROL) 4 Mg Tab.ds.pk 1 PKG PO UD, #1 PKG Prov: ELMER MORA MD 07/10/17 Problem Qualifiers Primary Impression: Lower back injury Encounter type: initial encounter Qualified Codes: S39.92XA - Unspecified injury of lower back, initial encounter ELMER MORA MD Jul 10, 2017 02:06
[2017-07-10] MEDS ORDERED: ACETAMINOPHEN 325 MG TABLET. PO ONE (02:30)
[2017-07-10] MEDS ORDERED: CYCLOBENZAPRINE 10 MG TABLET. PO ONE (02:30)
[2017-07-10] MEDS ORDERED: METH4TAB2 PO (03:10)
[2017-07-10] MEDS ORDERED: HYDR-971 PO (03:10)
[2017-07-10 03:26] VITALS: BP 138/78
--- NOTE | 2017-07-10 07:45 | RAD ---
EXAM: Pelvis, single view. HISTORY: Pain. COMPARISON: None. FINDINGS: A frontal view of the pelvis is obtained. There is no fracture, dislocation or subluxation. There is decreased bilateral femoral head-neck of set suggesting chronic femoral acetabular impingement. There is degenerative change of the lumbosacral junction. IMPRESSION: 1. No acute osseous finding. 2. Findings suggesting chronic femoral acetabular impingement.
== END 2017-07-10 03:28 | disposition home or self-care (01) ==
LOC: ER 00:40
DX: S39.92XA Unspecified injury of lower back, initial encounter (principal); K21.9 Gastro-esophageal reflux disease without esophagitis; J45.909 Unspecified asthma, uncomplicated; F31.9 Bipolar disorder, unspecified; Z87.442 Personal history of urinary calculi; Z90.49 Acquired absence of other specified parts of digestive tract; Z90.710 Acquired absence of both cervix and uterus; Z88.0 Allergy status to penicillin; Z88.1 Allergy status to other antibiotic agents; Z88.2 Allergy status to sulfonamides; Z88.6 Allergy status to analgesic agent; Z88.8 Allergy status to other drugs, medicaments and biological substances; W06.XXXA Fall from bed, initial encounter; Y93.89 Activity, other specified; Y99.8 Other external cause status; Y92.89 Other specified places as the place of occurrence of the external cause
CPT/HCPCS: 72170; 81001; 87086; 99285-25

== ENCOUNTER 2017-08-16 22:22 | Emergency (ER) | payer MEDICAID ==
[~2017-08-16] VITALS: Ht 180.3 cm; Wt 149.7 kg
[~2017-08-16 22:22] MED LIST changes: +METH4TAB2 PO
--- NOTE | 2017-08-16 22:55 | PHYS DOC ---
Past Medical History Past Medical History: Asthma, Bipolar, GERD, Kidney Stone, Pancreatitis, Other Additional Past Medical Histor: ENLARGED LIVER,hirtuism Past Surgical History: Cholecystectomy, Hysterectomy, Tonsillectomy, Other Additional Past Surgical Histo: CYST REMOVED ON TAILBONE Smoking: Cigarettes Additional Information: PPD Alcohol Use: None Drug Use: None Adult General Chief Complaint Chief Complaint: CHEST PAIN HPI HPI Patient is a 37 year old female who presents with chest pain. She has frequent visits to this facility and other area ED's for various pain related complaints. She had a chest pain evaluation here February 2017 that was negative. She does smoke tobacco. Her last visit here was 07/10/17 for back pain. She states this pain started at 1900 PM; it was sharp. Pain is an 8 and radiates to her back. No nausea vomiting or diarrhea. No abdominal pain. No shortness of breath. No cough or cold symptoms recently. No fever or chills. No leg pain or swelling. Review of Systems Review of Systems Constitutional: Denies fever or chills Eyes: Denies change in visual acuity, redness, or eye pain HENT: Denies nasal congestion or sore throat Respiratory: Denies cough or shortness of breath Cardiovascular: Sharp chest pain;mid chest. GI: Denies abdominal pain, nausea, vomiting, bloody stools or diarrhea : Denies dysuria or hematuria Musculoskeletal: chronic low back pain; denies joint pain; occasional upper back pain. Integument: Denies rash or skin lesions Neurologic: Denies headache, focal weakness or sensory changes All other systems were reviewed and found to be within normal limits, except as documented in this note. Allergies Allergies Allergies Coded Allergies Type Severity Reaction Last Updated Verified Penicillins Allergy Intermediate SWEATING 04/01/14 Yes cephalexin Allergy Intermediate SWEATING 04/01/14 Yes dicyclomine Allergy Intermediate 11/04/16 Yes ketorolac Allergy Intermediate 07/26/16 Yes sulfamethoxazole Allergy Intermediate SWEATING 04/01/14 Yes tramadol Allergy Intermediate SWEATING 04/01/14 Yes trimethoprim Allergy Intermediate SWEATING 04/01/14 Yes Physical Exam Physical Exam Constitutional: Well developed, well nourished, no acute distress, non-toxic appearance. Patient with hirsutism. HENT: Normocephalic, atraumatic, bilateral external ears normal, oropharynx moist, no oral exudates, nose normal. Eyes: PERRLA, EOMI, conjunctiva normal, no discharge. Neck: Normal range of motion, no tenderness, supple, no stridor. Cardiovascular:Heart rate regular rhythm, no murmur Lungs & Thorax: Bilateral breath sounds clear to auscultation Abdomen: Bowel sounds normal, soft, no tenderness, no masses, no pulsatile masses. Skin: Warm, dry, no erythema, no rash. Back: No tenderness, no CVA tenderness. Extremities: No tenderness, no cyanosis, no clubbing, ROM intact, no edema. Neurologic: Alert and oriented X 3, normal motor function, normal sensory function, no focal deficits noted. Psychologic: Affect normal, judgement normal, mood normal. Current Patient Data Vital Signs Vital Signs Date Time Temp Pulse Resp B/P (MAP) Pulse Ox O2 Delivery O2 Flow Rate FiO2 08/16/17 22:25 98.0 97 16 149/84 (105) 100 Room Air 98.0 Lab Values Laboratory Tests Test 08/16/17 22:50 White Blood Count 8.6 x10^3/uL (4.0-11.0) Red Blood Count 4.86 x10^6/uL (3.50-5.40) Hemoglobin 14.4 g/dL (12.0-15.5) Hematocrit 42.6 % (36.0-47.0) Mean Corpuscular Volume 88 fL (79-100) Mean Corpuscular Hemoglobin 30 pg (25-35) Mean Corpuscular Hemoglobin Concent 34 g/dL (31-37) Red Cell Distribution Width 13.1 % (11.5-14.5) Platelet Count 166 x10^3/uL (140-400) Neutrophils (%) (Auto) 60 % (31-73) Lymphocytes (%) (Auto) 27 % (24-48) Monocytes (%) (Auto) 10 % (0-9) H Eosinophils (%) (Auto) 3 % (0-3) Basophils (%) (Auto) 1 % (0-3) Neutrophils # (Auto) 5.1 x10^3uL (1.8-7.7) Lymphocytes # (Auto) 2.3 x10^3/uL (1.0-4.8) Monocytes # (Auto) 0.8 x10^3/uL (0.0-1.1) Eosinophils # (Auto) 0.3 x10^3/uL (0.0-0.7) Basophils # (Auto) 0.1 x10^3/uL (0.0-0.2) D-Dimer (Felecia) 0.28 ug/mlFEU (0.00-0.50) Sodium Level 143 mmol/L (136-145) Potassium Level 3.6 mmol/L (3.5-5.1) Chloride Level 102 mmol/L (98-107) Carbon Dioxide Level 28 mmol/L (21-32) Anion Gap 13 (6-14) Blood Urea Nitrogen 13 mg/dL (7-20) Creatinine 0.8 mg/dL (0.6-1.0) Estimated GFR (Cockcroft-Gault) 81.2 BUN/Creatinine Ratio 16 (6-20) Glucose Level 100 mg/dL (70-99) H Calcium Level 9.0 mg/dL (8.5-10.1) Total Bilirubin 0.4 mg/dL (0.2-1.0) Aspartate Amino Transferase (AST) 72 U/L (15-37) H Alanine Aminotransferase (ALT) 143 U/L (14-59) H Alkaline Phosphatase 121 U/L (46-116) H Creatine Kinase 116 U/L (26-192) Creatine Kinase MB (Mass) < 0.5 ng/mL (0.0-3.6) Creatine Kinase MB Relative Index 0.4 % (0-4) Troponin I Quantitative < 0.017 ng/mL (0.000-0.055) MB-Zla-[id number]-Type Natriuretic Peptide 15 pg/mL (0-124) Total Protein 7.9 g/dL (6.4-8.2) Albumin 3.8 g/dL (3.4-5.0) Albumin/Globulin Ratio 0.9 (1.0-1.7) L Lipase 180 U/L (73-393) Laboratory Tests 08/16/17 22:50 Laboratory Tests 08/16/17 22:50 EKG EKG EKG interpreted by myself at 2232 PM shows normal sinus rhythm, heart rate 97, QTC 431 ms, no acute ST elevation Radiology/Procedures Radiology/Procedures CXR interpreted by myself 2255 PM: No pleural effusion, normal mediastinum, no infiltrate, no pneumothorax. Course & Med Decision Making Course & Med Decision Making Evaluated patient upon arrival. She has low risk factors however we'll check her d-dimer and her cardiac enzymes. She does continue to smoke. Lab returning; liver enzymes are slightly elevated compared to prior (Last LFT Mar 2017: AST 44 ; ALT 100; Alk Phos 117). She has chronic elev LFT by history. Lipase today is normal. At 2335 PM: Consent and d-dimer are all normal. Patient given GI cocktail. No evidence of acute pulmonary or cardiac event. Will be discharged home. QUINTIN score for NSTEMI: Age 65: No=0; Yes=1 3 CAD risk factors: Family history of CAD, hypertension, hypercholesterolemia, diabetes, family history of CAD, or current smoker: No=0; Yes=1 Known CAD (stenosis 50%: No=0; Yes=1 ASA use in past 7 days: No=0; Yes=1 Severe angina ( 2 episodes in 24 hrs): No=0; Yes=[address] changes 0.5m: No=0; Yes=1 Positive cardiac marker: No=0; Yes=1 Score: MACE Scoring: History: Highly suspicious (2 points); Moderately suspicious (1 point). Slightly suspicious (0 point). EKG: ST segment depression (2 points). Nonspecific repolarization disturbance ( 1 point). normal (0 point) Age: Greater than 65 (2 points), 65-45 (1 point); less than 45 years old (0 points). Risk factors:> 3 risk factors (2 points), 1-2 risk factors (one point), no risk factors (0 point). Troponin: > 2 times normal (2 points), 1-2 times normal (1 point) normal limits (0 point) Total score: ___1___ Score % pts MACE/n MACE Policy 0-3: 32% 1.9% 0.05% Discharge 4-6: 51% 413/3136 13% 1.3% Observation Risk management 7-10: 17% 518/1045 50% 2.8% Observation Treatment, CAGb PERC RULE Criteria: Age < than 50 years Heart rate < 100 Oxygen saturation > 95% No hemoptysis No estrogen use No prior DVT or PE No unilateral leg swelling No surgery or trauma requiring hospitalization within the prior 4 weeks PERC RULE SATISFIED Dragon Disclaimer Douglason Disclaimer This electronic medical record was generated, in whole or in part, using a voice recognition dictation system. Departure Departure Impression: Primary Impression: Chest pain of uncertain etiology Additional Impression: Elevated liver function tests Disposition: HOME, SELF-CARE Condition: STABLE Referrals: NO PCP (PCP) Patient Instructions: Diet for Gastroesophageal Reflux Disease, Child, Easy-to- Read Additional Instructions: YOUR LIVER ENZYMES ARE ELEVATED. PRIOR REVIEW OF YOUR LAB SHOWS THEY HAVE BEEN ELEVATED FOR QUITE SOME TIME. CALL YOUR PRIMARY CARE PHYSICIAN FOR FOLLOW UP. Problem Qualifiers TATI PINZON MD Aug 16, 2017 22:55
[2017-08-16 23:02] LABS: BASO # 0.1 x10^3/uL (0.0-0.2); BASO % 1 % (0-3); EOS % 3 % (0-3); HEMATOCRIT 42.6 % (36.0-47.0); HEMOGLOBIN 14.4 g/dL (12.0-15.5); LYMPH # 2.3 x10^3/uL (1.0-4.8); LYMPH % 27 % (24-48); MEAN CORPUSCULAR HEMOGLOBIN 30 pg (25-35); MEAN CORPUSCULAR HGB CONC 34 g/dL (31-37); MEAN CORPUSCULAR VOLUME 88 fL (79-100); MONO % 10 % (0-9); NEUT % 60 % (31-73); PLATELET COUNT 166 x10^3/uL (140-400); RED BLOOD COUNT 4.86 x10^6/uL (3.50-5.40); RED CELL DISTRIBUTION WIDTH 13.1 % (11.5-14.5); WHITE BLOOD COUNT 8.6 x10^3/uL (4.0-11.0)
[2017-08-16 23:11] LABS: CREATININE 0.8 mg/dL (0.6-1.0); GFR 81.2; POTASSIUM 3.6 mmol/L (3.5-5.1)
[2017-08-16 23:16] LABS: ALBUMIN 3.8 g/dL (3.4-5.0); ALBUMIN/GLOBULIN RATIO 0.9 (1.0-1.7); TOTAL BILIRUBIN 0.4 mg/dL (0.2-1.0); TOTAL PROTEIN 7.9 g/dL (6.4-8.2)
[2017-08-16 23:25] LABS: CREATINE KINASE 116 U/L (26-192)
[2017-08-16 23:28] LABS: CKMB MASS < 0.5 ng/mL (0.0-3.6)
[2017-08-16 23:30] VITALS: BP 154/93
[2017-08-16] MEDS ORDERED: LIDO:MAALOX:DONNATAL 1:1:1 15 ML SINGLE DOSE SWSW ONE (23:45)
--- NOTE | 2017-08-17 08:20 | RAD ---
Indication: Chest pain. Time of exam 2254 hours. Correlation is made with prior study from 03/08/2017. FINDINGS: The heart size is normal. The lungs are clear. No pleural effusion or pneumothorax is identified. The pulmonary vascularity is normal. IMPRESSION: No acute abnormality detected.
--- NOTE | 2017-08-17 14:02 | EKG ---
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
== END 2017-08-16 23:54 | disposition home or self-care (01) ==
LOC: ER 22:22
DX: R07.89 Other chest pain (principal); R79.89 Other specified abnormal findings of blood chemistry; J45.909 Unspecified asthma, uncomplicated; K21.9 Gastro-esophageal reflux disease without esophagitis; Z87.442 Personal history of urinary calculi; F17.210 Nicotine dependence, cigarettes, uncomplicated; F31.9 Bipolar disorder, unspecified; Z90.710 Acquired absence of both cervix and uterus; Z90.49 Acquired absence of other specified parts of digestive tract; Z88.0 Allergy status to penicillin; Z88.2 Allergy status to sulfonamides; Z88.1 Allergy status to other antibiotic agents; Z88.6 Allergy status to analgesic agent; Z88.8 Allergy status to other drugs, medicaments and biological substances; Z88.5 Allergy status to narcotic agent
CPT/HCPCS: 36415; 71010; 80053; 82553; 83690; 83880; 84484; 85025; 85379; 93005; 99285-25

== ENCOUNTER 2018-06-12 02:54 | Emergency (ER) | payer MEDICAID ==
[~2018-06-12] VITALS: Ht 180.3 cm; Wt 154.2 kg
[2018-06-12 03:15] VITALS: BP 188/90
[2018-06-12 03:42] LABS: BILIRUBIN,URINE NEGATIVE (NEG); CLARITY,URINE CLEAR; COLOR,URINE YELLOW; NITRITE,URINE NEGATIVE (NEG); PH,URINE 7.5; PROTEIN,URINE NEGATIVE (NEG-TRACE)
--- NOTE | 2018-06-12 04:11 | PHYS DOC ---
Past Medical History Past Medical History: IBS Additional Past Medical Histor: ENLARGED LIVER,hirtuism Past Surgical History: Cholecystectomy, Hysterectomy, Tonsillectomy, Other Additional Past Surgical Histo: CYST REMOVED ON TAILBONE Alcohol Use: None Drug Use: None Adult General Chief Complaint Chief Complaint: ABDOMINAL PAIN HPI HPI Patient is a 38 year old female who presents with lower quadrant pain since 1 AM. Patient states she felt sharp pain in the right lower quadrant is intermittent in nature and became more constant. Patient states that she does have a history of kidney stones but has not had one in a while and is here for further evaluation and management. Patient has no other acute complaints at this time. Patient does deny any nausea vomiting or diarrhea does have a history of a cholecystectomy as well as a hysterectomy. Review of Systems Review of Systems Constitutional: Denies fever or chills [] Eyes: Denies change in visual acuity, redness, or eye pain [] HENT: Denies nasal congestion or sore throat [] Respiratory: Denies cough or shortness of breath [] Cardiovascular: No additional information not addressed in HPI [] GI: Positive for abdominal pain, denies nausea, vomiting, bloody stools or diarrhea [] : Denies dysuria or hematuria [] Musculoskeletal: Denies back pain or joint pain [] Integument: Denies rash or skin lesions [] Neurologic: Denies headache, focal weakness or sensory changes [] Endocrine: Denies polyuria or polydipsia [] All other systems were reviewed and found to be within normal limits, except as documented in this note. Allergies Allergies Allergies Coded Allergies Type Severity Reaction Last Updated Verified Penicillins Allergy Intermediate SWEATING 04/01/14 Yes cephalexin Allergy Intermediate SWEATING 04/01/14 Yes dicyclomine Allergy Intermediate 11/04/16 Yes ketorolac Allergy Intermediate 07/26/16 Yes sulfamethoxazole Allergy Intermediate SWEATING 04/01/14 Yes tramadol Allergy Intermediate SWEATING 04/01/14 Yes trimethoprim Allergy Intermediate SWEATING 04/01/14 Yes Physical Exam Physical Exam Constitutional: Well developed, morbidly obese, no acute distress, non-toxic appearance. [] HENT: Normocephalic, atraumatic, bilateral external ears normal, oropharynx moist, no oral exudates, nose normal. [] Eyes: PERRLA, EOMI, conjunctiva normal, no discharge. [] Neck: Normal range of motion, no tenderness, supple, no stridor. [] Cardiovascular:Heart rate regular rhythm, no murmur [] Lungs & Thorax: Bilateral breath sounds clear to auscultation [] Abdomen: Bowel sounds normal, soft, right lower quadrant tenderness, no masses, no pulsatile masses. [] Skin: Warm, dry, no erythema, no rash. [] Back: No tenderness, no CVA tenderness. [] Extremities: No tenderness, no cyanosis, no clubbing, ROM intact, no edema. [] Neurologic: Alert and oriented X 3, normal motor function, normal sensory function, no focal deficits noted. [] Psychologic: Affect normal, judgement normal, mood normal. [] Current Patient Data Vital Signs Vital Signs Date Time Temp Pulse Resp B/P (MAP) Pulse Ox O2 Delivery O2 Flow Rate FiO2 06/12/18 03:15 98.1 100 20 188/90 (122) 95 Room Air 98.1 Lab Values Laboratory Tests Test 06/12/18 03:11 POC Urine HCG, Qualitative Hcg negative (Negative) EKG EKG [] Radiology/Procedures Radiology/Procedures [] Course & Med Decision Making Course & Med Decision Making Pertinent Labs and Imaging studies reviewed. (See chart for details) She was witnessed eloping from the emergency department on camera without telling anyone that she was leaving. [] Dragon Disclaimer Dragon Disclaimer This electronic medical record was generated, in whole or in part, using a voice recognition dictation system. Departure Departure Impression: Primary Impression: Abdominal pain Disposition: AGAINST MEDICAL ADVICE Condition: STABLE Referrals: UNKNOWN PCP NAME (PCP) NATALIYA TRUJILLO MD Jun 12, 2018 04:11
[2018-06-12 04:43] LABS: BASO # 0.1 x10^3/uL (0.0-0.2); BASO % 1 % (0-3); EOS # 0.3 x10^3/uL (0.0-0.7); EOS % 3 % (0-3); HEMATOCRIT 42.3 % (36.0-47.0); HEMOGLOBIN 14.9 g/dL (12.0-15.5); LYMPH # 2.9 x10^3/uL (1.0-4.8); LYMPH % 31 % (24-48); MEAN CORPUSCULAR HEMOGLOBIN 31 pg (25-35); MEAN CORPUSCULAR HGB CONC 35 g/dL (31-37); MEAN CORPUSCULAR VOLUME 87 fL (79-100); MONO # 0.8 x10^3/uL (0.0-1.1); MONO % 9 % (0-9); NEUT # 5.2 x10^3uL (1.8-7.7); NEUT % 56 % (31-73); PLATELET COUNT 181 x10^3/uL (140-400); RED BLOOD COUNT 4.85 x10^6/uL (3.50-5.40); WHITE BLOOD COUNT 9.3 x10^3/uL (4.0-11.0)
[2018-06-12 04:45] LABS: BACTERIA,URINE FEW /HPF (0-FEW); RBC,URINE 0 /HPF (0-2); SQUAMOUS EPITHELIAL CELL,UR MOD /LPF
[2018-06-12 04:57] LABS: CALCIUM 9.6 mg/dL (8.5-10.1); CREATININE 0.8 mg/dL (0.6-1.0); GFR 80.7; POTASSIUM 3.9 mmol/L (3.5-5.1)
--- NOTE | 2018-06-12 04:59 | RAD ---
EXAM: CT Abdomen and Pelvis without IV contrast CLINICAL HISTORY: Right lower quadrant pain; history of stones COMPARISON: none TECHNIQUE: Helical CT of the abdomen and pelvis without intravenous contrast. Axial, coronal and sagittal reformatted images were generated. PQRS compliance statement - One or more of the following individualized dose reduction techniques were utilized for this study: 1. Automated exposure control 2. Adjustment of the mA and/or kV according to patient size 3. Use of iterative reconstruction technique FINDINGS: Lack of intravenous contrast limits evaluation of solid organs, vasculature, and lymph nodes. Lower chest: Lung bases are clear. Abdomen and Pelvis: No focal liver lesion. Cholecystectomy clips are seen. No biliary ductal dilatation. Adrenal glands are normal. Spleen is unremarkable. Pancreas is normal. Kidneys are normal in shape and morphology. No renal tract calculi are seen. No hydronephrosis. No focal renal lesion. Small and large bowel are normal in caliber. The appendix is normal. No abdominal or pelvic ascites. Small fat-containing periumbilical hernia is seen. Bones: No definite aggressive osseous lesion is identified. IMPRESSION: 1. No definite renal tract calculi are seen. 2. No evidence for bowel obstruction. 3. The appendix is grossly normal. No significant right lower quadrant inflammatory changes are seen. 4. Small fat-containing periumbilical hernia 5. Changes of cholecystectomy without biliary ductal dilatation. Electronically signed by: aHrdy Olson MD (06/12/2018 4:55 AM) [id number]
[2018-06-12 05:03] LABS: ALBUMIN 3.7 g/dL (3.4-5.0); ALBUMIN/GLOBULIN RATIO 0.9 (1.0-1.7); TOTAL BILIRUBIN 0.3 mg/dL (0.2-1.0); TOTAL PROTEIN 7.7 g/dL (6.4-8.2)
== END 2018-06-12 04:36 | disposition left against medical advice (07) ==
LOC: ER 02:54
DX: R10.31 Right lower quadrant pain (principal); K58.9 Irritable bowel syndrome, unspecified; Z90.49 Acquired absence of other specified parts of digestive tract; Z90.89 Acquired absence of other organs; Z87.442 Personal history of urinary calculi; Z88.0 Allergy status to penicillin; Z88.1 Allergy status to other antibiotic agents; Z88.2 Allergy status to sulfonamides; Z88.8 Allergy status to other drugs, medicaments and biological substances
CPT/HCPCS: 36415; 74176; 80053; 81001; 81025; 85025; 99285-25

== ENCOUNTER 2019-03-06 22:39 | Emergency (ER) | payer MEDICAID ==
[~2019-03-06] VITALS: Ht 180.3 cm; Wt 163.3 kg
[~2019-03-06 22:39] MED LIST changes: +ACET-704 PO; -HYDR-2758 PO; +HYDR-2761 PO; +HYDR-3164 PO; -HYDR-971 PO; -OXYC-327 PO; +OXYC1TAB19 PO
[2019-03-06 22:51] VITALS: BP 167/82
[2019-03-06 23:40] LABS: BILIRUBIN,URINE NEGATIVE (NEG); CLARITY,URINE CLEAR; COLOR,URINE YELLOW; NITRITE,URINE NEGATIVE (NEG); PH,URINE 5.5; PROTEIN,URINE NEGATIVE (NEG-TRACE); UROBILINOGEN,URINE 0.2 mg/dL (0.2 mg/dL)
[2019-03-06 23:49] LABS: BACTERIA,URINE FEW /HPF (0-FEW); RBC,URINE OCC /HPF (0-2); SQUAMOUS EPITHELIAL CELL,UR FEW /LPF
[2019-03-07] MEDS ORDERED: IV NORMAL SALINE 1000ML BAG 1,000 ML IV ONE
[2019-03-07] MEDS ORDERED: HYDROcodone/APAP 5/325MG 1 TAB TABLET PO ONE
[2019-03-07] MEDS ORDERED: ONDANSETRON PF 4 MG/2 ML VIAL. IV ONE
--- NOTE | 2019-03-07 | PHYS DOC ---
Past Medical History Past Medical History: Depression, GERD, IBS Additional Past Medical Histor: ENLARGED LIVER, hirtuism Past Surgical History: Cholecystectomy, Hysterectomy, Tonsillectomy, Other Additional Past Surgical Histo: CYST REMOVED ON TAILBONE Alcohol Use: None Drug Use: None Adult General Chief Complaint Chief Complaint: FLANK PAIN HPI HPI Patient is a 39 year old female who presents with [RLQ abdominal pain that migrated to the flanks b/l.] Pt reports onset starting around 530-6 pm tonight with RLQ pain that quickly migrated to her flanks b/l. Hayden describes the pain as a "very sharp stabbing" pain without radiation and rates it "above a 10" on a scale 1-10. She took a tylenol and warm bath at 6pm to help with the pain and said it alleviated her symptoms for a short period of time until it came back "worse than before." Patient reports being seen somewhere 2 weeks ago for the same RLQ pain but notes the b/l flank pain was not there. Of note patient was here February [address] scan no nephrolithiasis she says the pain is similar to that she is came back also of note patient has had several ER visits with similar complaints Review of Systems Review of Systems Constitutional: Denies fever or chills Eyes: Denies change in visual acuity, redness, or eye pain HENT: Denies nasal congestion or sore throat Respiratory: Denies cough or shortness of breath Cardiovascular: No additional information not addressed in HPI GI: Denies, vomiting, bloody stools or diarrhea [Admits to RLQ abdominal pain and nausea] Integument: Denies rash or skin lesions Neurologic: Denies headache, focal weakness or sensory changes Endocrine: Denies polydipsia [admits polyuria that has been present for a decade] All other systems were reviewed and found to be within normal limits, except as documented in this note. Current Medications Current Medications Current Medications Medications (Trade) Dose Ordered Sig/Rod Start Time Stop Time Status Last Admin Dose Admin Acetaminophen/ Hydrocodone Bitart (Lortab 5/325) 1 tab 1X ONCE 03/07/19 00:00 03/07/19 00:01 DC 03/06/19 23:51 1 TAB Ondansetron HCl (Zofran) 4 mg 1X ONCE 03/07/19 00:00 03/07/19 00:01 DC 03/06/19 23:51 4 MG Sodium Chloride 1,000 ml @ 1,000 mls/hr 1X ONCE 03/07/19 00:00 03/07/19 00:59 DC 03/06/19 23:51 1,000 MLS/HR Allergies Allergies Allergies Coded Allergies Type Severity Reaction Last Updated Verified Penicillins Allergy Intermediate SWEATING 04/01/14 Yes cephalexin Allergy Intermediate SWEATING 04/01/14 Yes dicyclomine Allergy Intermediate 11/04/16 Yes ketorolac Allergy Intermediate 07/26/16 Yes sulfamethoxazole Allergy Intermediate SWEATING 04/01/14 Yes tramadol Allergy Intermediate SWEATING 04/01/14 Yes trimethoprim Allergy Intermediate SWEATING 04/01/14 Yes Physical Exam Physical Exam Constitutional: Well developed, well nourished, mild distress, non-toxic appearance. HENT: Normocephalic, atraumatic, bilateral external ears normal, oropharynx moist, no oral exudates, nose normal. Eyes: PERRLA, EOMI, conjunctiva normal, no discharge. Neck: Normal range of motion, no tenderness, supple, no stridor. Cardiovascular:Heart rate regular rhythm, no murmur Lungs & Thorax: Bilateral breath sounds clear to auscultation Abdomen: Bowel sounds normal, soft, no masses, no pulsatile masses. [TTP in RLQ with extremely light palpation really just of the skin when distracted there really was not significant peritoneal tenderness Skin: Warm, dry, no erythema, no rash. Back: No tenderness, CVA tenderness R > L Extremities: No tenderness, no cyanosis, no clubbing, ROM intact, no edema. Neurologic: Alert and oriented X 3, normal motor function, normal sensory function, no focal deficits noted. Psychologic: Affect normal, judgement normal, mood normal. Current Patient Data Vital Signs Vital Signs Date Time Temp Pulse Resp B/P (MAP) Pulse Ox O2 Delivery O2 Flow Rate FiO2 03/06/19 23:51 18 99 Room Air 03/06/19 22:51 98.0 167/82 (110) 98.0 Lab Values Laboratory Tests Test 03/06/19 22:41 03/06/19 23:59 Urine Collection Type Unknown Urine Color Yellow Urine Clarity Clear Urine pH 5.5 Urine Specific [place] 1.025 Urine Protein Negative mg/dL (NEG-TRACE) Urine Glucose (UA) Negative mg/dL (NEG) Urine Ketones (Stick) Negative mg/dL (NEG) Urine Blood Negative (NEG) Urine Nitrite Negative (NEG) Urine Bilirubin Negative (NEG) Urine Urobilinogen Dipstick 0.2 mg/dL (0.2 mg/dL) Urine Leukocyte Esterase Negative (NEG) Urine RBC Occ /HPF (0-2) Urine WBC 1-4 /HPF (0-4) Urine Squamous Epithelial Cells Few /LPF Urine Bacteria Few /HPF (0-FEW) Urine Mucus Mod /LPF White Blood Count 8.2 x10^3/uL (4.0-11.0) Red Blood Count 4.55 x10^6/uL (3.50-5.40) Hemoglobin 13.8 g/dL (12.0-15.5) Hematocrit 39.8 % (36.0-47.0) Mean Corpuscular Volume 88 fL (79-100) Mean Corpuscular Hemoglobin 30 pg (25-35) Mean Corpuscular Hemoglobin Concent 35 g/dL (31-37) Red Cell Distribution Width 12.9 % (11.5-14.5) Platelet Count 165 x10^3/uL (140-400) Neutrophils (%) (Auto) 56 % (31-73) Lymphocytes (%) (Auto) 30 % (24-48) Monocytes (%) (Auto) 10 % (0-9) H Eosinophils (%) (Auto) 3 % (0-3) Basophils (%) (Auto) 1 % (0-3) Neutrophils # (Auto) 4.6 x10^3uL (1.8-7.7) Lymphocytes # (Auto) 2.5 x10^3/uL (1.0-4.8) Monocytes # (Auto) 0.8 x10^3/uL (0.0-1.1) Eosinophils # (Auto) 0.3 x10^3/uL (0.0-0.7) Basophils # (Auto) 0.1 x10^3/uL (0.0-0.2) Sodium Level 140 mmol/L (136-145) Potassium Level 3.5 mmol/L (3.5-5.1) Chloride Level 106 mmol/L (98-107) Carbon Dioxide Level 28 mmol/L (21-32) Anion Gap 6 (6-14) Blood Urea Nitrogen 14 mg/dL (7-20) Creatinine 0.9 mg/dL (0.6-1.0) Estimated GFR (Cockcroft-Gault) 70.1 BUN/Creatinine Ratio 16 (6-20) Glucose Level 106 mg/dL (70-99) H Calcium Level 8.9 mg/dL (8.5-10.1) Total Bilirubin 0.5 mg/dL (0.2-1.0) Aspartate Amino Transferase (AST) 54 U/L (15-37) H Alanine Aminotransferase (ALT) 96 U/L (14-59) H Alkaline Phosphatase 103 U/L (46-116) Total Protein 7.2 g/dL (6.4-8.2) Albumin 3.5 g/dL (3.4-5.0) Albumin/Globulin Ratio 0.9 (1.0-1.7) L Laboratory Tests 03/06/19 23:59 Laboratory Tests 03/06/19 23:59 EKG EKG [] Radiology/Procedures Radiology/Procedures [] Course & Med Decision Making Course & Med Decision Making Pertinent Labs and Imaging studies reviewed. (See chart for details) 39-year-old female presenting with abdominal pain really into the flank she was Worried about a kidney stone she just had a CT scan earlier this month within the last 30 days that was essentially normal white count is not elevated urinalysis is essentially negative patient does have a history of frequent ER visits for this very similar pain type of pain. I don't think that we need to reimage her now I told her that I told her return precautions for fever worsening pain unable to eat or drink him back in 24 hour should those occur otherwise rest take it easy gradual return to activity stay hydrated Dragon Disclaimer Dragon Disclaimer This electronic medical record was generated, in whole or in part, using a voice recognition dictation system. Departure Departure Impression: Primary Impression: Flank pain Disposition: 01 HOME, SELF-CARE Condition: STABLE Referrals: UNKNOWN PCP NAME (PCP) MARTHA OSUNA MD Mar 07, 2019 00:00
[2019-03-07 00:05] LABS: BASO # 0.1 x10^3/uL (0.0-0.2); BASO % 1 % (0-3); EOS # 0.3 x10^3/uL (0.0-0.7); EOS % 3 % (0-3); HEMATOCRIT 39.8 % (36.0-47.0); HEMOGLOBIN 13.8 g/dL (12.0-15.5); LYMPH # 2.5 x10^3/uL (1.0-4.8); LYMPH % 30 % (24-48); MEAN CORPUSCULAR HEMOGLOBIN 30 pg (25-35); MEAN CORPUSCULAR HGB CONC 35 g/dL (31-37); MEAN CORPUSCULAR VOLUME 88 fL (79-100); MONO # 0.8 x10^3/uL (0.0-1.1); MONO % 10 % (0-9); NEUT # 4.6 x10^3uL (1.8-7.7); NEUT % 56 % (31-73); PLATELET COUNT 165 x10^3/uL (140-400); RED BLOOD COUNT 4.55 x10^6/uL (3.50-5.40); RED CELL DISTRIBUTION WIDTH 12.9 % (11.5-14.5); WHITE BLOOD COUNT 8.2 x10^3/uL (4.0-11.0)
[2019-03-07 00:15] LABS: CALCIUM 8.9 mg/dL (8.5-10.1); CREATININE 0.9 mg/dL (0.6-1.0); GFR 70.1; POTASSIUM 3.5 mmol/L (3.5-5.1)
[2019-03-07 00:21] LABS: ALBUMIN 3.5 g/dL (3.4-5.0); ALBUMIN/GLOBULIN RATIO 0.9 (1.0-1.7); TOTAL BILIRUBIN 0.5 mg/dL (0.2-1.0); TOTAL PROTEIN 7.2 g/dL (6.4-8.2)
== END 2019-03-07 01:12 | disposition home or self-care (01) ==
LOC: ER 22:39
DX: R10.32 Left lower quadrant pain (principal); R19.7 Diarrhea, unspecified; K21.9 Gastro-esophageal reflux disease without esophagitis; K58.9 Irritable bowel syndrome, unspecified; Z90.49 Acquired absence of other specified parts of digestive tract; Z90.710 Acquired absence of both cervix and uterus; Z88.0 Allergy status to penicillin; Z88.1 Allergy status to other antibiotic agents; Z88.2 Allergy status to sulfonamides; Z88.6 Allergy status to analgesic agent; Z88.8 Allergy status to other drugs, medicaments and biological substances
CPT/HCPCS: 36415; 80053; 81001; 85025; 96361; 96374; 99284; J2405; J7030

== ENCOUNTER 2019-06-14 21:40 | Emergency (ER) | payer MEDICAID ==
[~2019-06-14] VITALS: Ht 180.3 cm; Wt 163.3 kg
[~2019-06-14 21:40] MED LIST changes: +OMEP40CA45 PO; -OMEP40CA5 PO
[2019-06-14] MEDS ORDERED: ONDANSETRON PF 4 MG/2 ML VIAL. IV ONE (22:45)
[2019-06-14] MEDS ORDERED: IV NORMAL SALINE 1000ML BAG 1,000 ML IV SCH (22:45)
[2019-06-14] MEDS ORDERED: MORPHINE SULFATE 4 MG/ML VIAL. IV ONE (22:45)
[2019-06-14 22:47] LABS: BILIRUBIN,URINE NEGATIVE (NEG); CLARITY,URINE CLEAR; COLOR,URINE YELLOW; NITRITE,URINE NEGATIVE (NEG); PROTEIN,URINE NEGATIVE (NEG-TRACE); UROBILINOGEN,URINE 0.2 mg/dL (0.2 mg/dL)
--- NOTE | 2019-06-14 22:49 | PHYS DOC ---
Past Medical History Past Medical History: Depression, GERD, IBS Additional Past Medical Histor: ENLARGED LIVER, hirtuism Past Surgical History: Cholecystectomy, Hysterectomy, Tonsillectomy, Other Additional Past Surgical Histo: CYST REMOVED ON TAILBONE Alcohol Use: None Drug Use: None Adult General Chief Complaint Chief Complaint: ABDOMINAL PAIN HPI HPI 39-year-old female presents to the emergency Department complaints of abdominal pain which started around 7:30. Patient states pain is primarily lower abdomen started on the right and moved to the left. She describes vomiting �3, no fever, nothing makes the pain worse or better. She describes the pain as sharp, stabbi ng sensation. She does have some diarrhea however has a history of IBS. Patient denies any vaginal discharge. She had a complete hysterectomy. Review of Systems Review of Systems Constitutional: Denies fever or chills [] Respiratory: Denies cough or shortness of breath [] Cardiovascular: No additional information not addressed in HPI [] GI: + abdominal pain, nausea, vomiting, no bloody stools or diarrhea [] Musculoskeletal: Denies back pain or joint pain [] Integument: Denies rash or skin lesions [] Neurologic: Denies headache, focal weakness or sensory changes [] All other systems were reviewed and found to be within normal limits, except as documented in this note. Current Medications Current Medications Current Medications Medications (Trade) Dose Ordered Sig/Rod Start Time Stop Time Status Last Admin Dose Admin Info (CONTRAST GIVEN -- Rx MONITORING) 1 each PRN DAILY PRN 06/14/19 23:45 06/16/19 23:44 Iohexol (Omnipaque 300 Mg/ml) 75 ml 1X ONCE 06/14/19 23:45 06/14/19 23:53 DC 06/14/19 23:48 75 ML Morphine Sulfate (Morphine Sulfate) 4 mg 1X ONCE 06/14/19 22:45 06/14/19 22:46 DC 06/14/19 23:13 4 MG Ondansetron HCl (Zofran) 4 mg 1X ONCE 06/14/19 22:45 06/14/19 22:46 DC 06/14/19 23:12 4 MG Sodium Chloride 1,000 ml @ 1,000 mls/hr 1X ONCE 06/14/19 23:00 06/14/19 23:59 DC 06/14/19 23:13 1,000 MLS/HR Allergies Allergies Allergies Coded Allergies Type Severity Reaction Last Updated Verified Penicillins Allergy Intermediate SWEATING 04/01/14 Yes cephalexin Allergy Intermediate SWEATING 04/01/14 Yes dicyclomine Allergy Intermediate 11/04/16 Yes ketorolac Allergy Intermediate 07/26/16 Yes sulfamethoxazole Allergy Intermediate SWEATING 04/01/14 Yes tramadol Allergy Intermediate SWEATING 04/01/14 Yes trimethoprim Allergy Intermediate SWEATING 04/01/14 Yes Physical Exam Physical Exam Constitutional: Well developed, well nourished, no acute distress, non-toxic appearance. [] HENT: Normocephalic, atraumatic, bilateral external ears normal, oropharynx moist, no oral exudates, nose normal. [] Eyes: PERRLA, EOMI, conjunctiva normal, no discharge. [] Cardiovascular:Heart rate regular rhythm, no murmur [] Lungs & Thorax: Bilateral breath sounds clear to auscultation [] Abdomen: TTP lower abdomen pain, no rebound appreciated, no masses, no pulsatile process Skin: Warm, dry, no erythema, no rash. [] Back: No tenderness, no CVA tenderness. [] Extremities: No tenderness, no edema. [] Neurologic: Alert and oriented X 3, no focal deficits noted. [] Psychologic: Affect normal, judgement normal, mood normal. [] Current Patient Data Vital Signs Vital Signs Date Time Temp Pulse Resp B/P (MAP) Pulse Ox O2 Delivery O2 Flow Rate FiO2 06/14/19 23:13 16 95 Room Air 06/14/19 21:45 97.9 97 144/84 (104) 97.9 Lab Values Laboratory Tests Test 06/14/19 21:45 06/14/19 21:49 06/14/19 22:20 Urine Collection Type Unknown Urine Color Yellow Urine Clarity Clear Urine pH 5.0 Urine Specific [place] 1.025 Urine Protein Negative mg/dL (NEG-TRACE) Urine Glucose (UA) Negative mg/dL (NEG) Urine Ketones (Stick) Negative mg/dL (NEG) Urine Blood Negative (NEG) Urine Nitrite Negative (NEG) Urine Bilirubin Negative (NEG) Urine Urobilinogen Dipstick 0.2 mg/dL (0.2 mg/dL) Urine Leukocyte Esterase Negative (NEG) Urine RBC 0 /HPF (0-2) Urine WBC Occ /HPF (0-4) Urine Squamous Epithelial Cells Mod /LPF Urine Amorphous Sediment Present /HPF Urine Bacteria Few /HPF (0-FEW) Urine Mucus Marked /LPF POC Urine HCG, Qualitative Hcg negative (Negative) White Blood Count 9.5 x10^3/uL (4.0-11.0) Red Blood Count 4.80 x10^6/uL (3.50-5.40) Hemoglobin 14.2 g/dL (12.0-15.5) Hematocrit 41.9 % (36.0-47.0) Mean Corpuscular Volume 87 fL (79-100) Mean Corpuscular Hemoglobin 30 pg (25-35) Mean Corpuscular Hemoglobin Concent 34 g/dL (31-37) Red Cell Distribution Width 13.0 % (11.5-14.5) Platelet Count 189 x10^3/uL (140-400) Neutrophils (%) (Auto) 57 % (31-73) Lymphocytes (%) (Auto) 30 % (24-48) Monocytes (%) (Auto) 9 % (0-9) Eosinophils (%) (Auto) 3 % (0-3) Basophils (%) (Auto) 1 % (0-3) Neutrophils # (Auto) 5.5 x10^3/uL (1.8-7.7) Lymphocytes # (Auto) 2.8 x10^3/uL (1.0-4.8) Monocytes # (Auto) 0.8 x10^3/uL (0.0-1.1) Eosinophils # (Auto) 0.3 x10^3/uL (0.0-0.7) Basophils # (Auto) 0.1 x10^3/uL (0.0-0.2) Sodium Level 144 mmol/L (136-145) Potassium Level 3.7 mmol/L (3.5-5.1) Chloride Level 105 mmol/L (98-107) Carbon Dioxide Level 28 mmol/L (21-32) Anion Gap 11 (6-14) Blood Urea Nitrogen 11 mg/dL (7-20) Creatinine 0.9 mg/dL (0.6-1.0) Estimated GFR (Cockcroft-Gault) 70.1 BUN/Creatinine Ratio 12 (6-20) Glucose Level 101 mg/dL (70-99) H Lactic Acid Level 1.7 mmol/L (0.4-2.0) Calcium Level 9.1 mg/dL (8.5-10.1) Total Bilirubin 0.4 mg/dL (0.2-1.0) Aspartate Amino Transferase (AST) 51 U/L (15-37) H Alanine Aminotransferase (ALT) 81 U/L (14-59) H Alkaline Phosphatase 113 U/L (46-116) Troponin I Quantitative < 0.017 ng/mL (0.000-0.055) Total Protein 7.9 g/dL (6.4-8.2) Albumin 3.8 g/dL (3.4-5.0) Albumin/Globulin Ratio 0.9 (1.0-1.7) L Lipase 192 U/L (73-393) Laboratory Tests 06/14/19 22:20 Laboratory Tests 06/14/19 22:20 EKG EKG [] Radiology/Procedures Radiology/Procedures [facility] [address] [place], [place] [id number] IMAGING REPORT Signed PATIENT: TUYET LLOYD ACCOUNT: [id number] : 1980 LOCATION: ER AGE: 39 SEX: F EXAM STATUS: REG ER ORD. PHYSICIAN: QUINTON JOSE MD REASON: abdominal pain PROCEDURE: CT ABD PELV W/ IV CONTRST ONLY CT abdomen and pelvis with contrast: Reason for examination: Abdominal pain. Helical images were obtained through the abdomen and pelvis with intravenous administration of 75 cc Omnipaque 300. Reconstruction was performed in sagittal and coronal planes. Exposure: One or more of the following individualized dose reduction techniques were utilized for this examination: 1. Automated exposure control 2. Adjustment of the mA and/or kV according to patient size 3. Use of iterative reconstruction technique. The lung bases are clear. The heart size is normal with no pericardial effusion. No abnormality seen at the liver, spleen, adrenal glands or pancreas. The gallbladder is surgically absent. The abdominal aorta and inferior vena cava show no abnormalities. No abnormality seen at the appendix. The colon shows no evidence of diverticulosis, diverticulitis or colitis. The small intestinal tract shows no abnormal dilatation or obstruction. No abnormality seen at the stomach or duodenum. The kidneys show no renal masses, renal calculi, hydronephrosis or obstructive uropathy. No abnormality seen at the bladder or vaginal cuff. There is no evidence of free fluid or free air in the abdomen or pelvis. No acute bony abnormalities evident. IMPRESSION: No abnormality seen at the appendix. No obstructive uropathy. No acute abnormality seen in the abdomen or pelvis. Electronically signed by: Alyson Marie MD (06/15/2019 12:11 AM) [facility] DICTATED and SIGNED BY: ALYSON MARIE MD DATE: 06/15/19 0011 [] Course & Med Decision Making Course & Med Decision Making 39-year-old female presents to the emergency Department complaints of abdominal pain which started around 7:30. Patient states pain is primarily lower abdomen started on the right and moved to the left. She describes vomiting �3, no fever, nothing makes the pain worse or better. She describes the pain as sharp, stabb ing sensation. She does have some diarrhea however has a history of IBS. Patient denies any vaginal discharge. She had a complete hysterectomy.Pertinent Labs and Imaging studies reviewed. (See chart for details) []Reviewed findings of laboratory studies and imaging with patient. Lipase 192, white blood cell count 9.5, urinalysis negative, AST 51, ALT 81, troponin negative, lactic acid 1.[address] without evidence of acute intra-abdominal process Discussed with patient, recommend follow with primary care physician's an outpatient. It appears this abdominal discomfort has been an acute on chronic process. Patient initially provided with Zofran, morphine in the emergency department. She is asking for more pain medications however given no abdominal process we'll plan for discharge and follow-up as an outpatient Dragon Disclaimer Yessenia Disclaimer This electronic medical record was generated, in whole or in part, using a voice recognition dictation system. Departure Departure Impression: Primary Impression: Abdominal pain Disposition: 01 HOME, SELF-CARE Condition: STABLE Referrals: UNKNOWN PCP NAME (PCP) Patient Instructions: Abdominal Pain Additional Instructions: Recommend follow up with PCP 3 - 5 days Return to the ER with worsening symptoms, intractable pain, fever, altered mental status Tylenol/Motrin as needed for pain Zofran as needed for nausea/vomiting Scripts Ondansetron Hcl (ZOFRAN) 4 Mg Tablet 1 TAB PO Q6HRS, #20 TAB Prov: QUINTON JOSE MD 06/15/19 Problem Qualifiers Primary Impression: Abdominal pain Abdominal location: lower abdomen, unspecified Qualified Codes: R10.30 - Lower abdominal pain, unspecified QUINTON JOSE MD Jun 14, 2019 22:49
[2019-06-14 22:52] LABS: BACTERIA,URINE FEW /HPF (0-FEW); RBC,URINE 0 /HPF (0-2); WBC,URINE OCC /HPF (0-4)
[2019-06-14 22:52] LABS: BASO # 0.1 x10^3/uL (0.0-0.2); BASO % 1 % (0-3); EOS # 0.3 x10^3/uL (0.0-0.7); EOS % 3 % (0-3); HEMATOCRIT 41.9 % (36.0-47.0); HEMOGLOBIN 14.2 g/dL (12.0-15.5); LYMPH # 2.8 x10^3/uL (1.0-4.8); LYMPH % 30 % (24-48); MEAN CORPUSCULAR HEMOGLOBIN 30 pg (25-35); MEAN CORPUSCULAR HGB CONC 34 g/dL (31-37); MEAN CORPUSCULAR VOLUME 87 fL (79-100); MONO # 0.8 x10^3/uL (0.0-1.1); MONO % 9 % (0-9); NEUT # 5.5 x10^3/uL (1.8-7.7); NEUT % 57 % (31-73); PLATELET COUNT 189 x10^3/uL (140-400); WHITE BLOOD COUNT 9.5 x10^3/uL (4.0-11.0)
[2019-06-14 22:53] LABS: AMORPHOUS SEDIMENT,UR PRESENT /HPF; SQUAMOUS EPITHELIAL CELL,UR MOD /LPF
[2019-06-14] MEDS ORDERED: IV NORMAL SALINE 1000ML BAG 1,000 ML IV ONE (23:00)
[2019-06-14 23:03] LABS: CALCIUM 9.1 mg/dL (8.5-10.1); CREATININE 0.9 mg/dL (0.6-1.0); GFR 70.1; POTASSIUM 3.7 mmol/L (3.5-5.1)
[2019-06-14 23:11] LABS: ALBUMIN 3.8 g/dL (3.4-5.0); ALBUMIN/GLOBULIN RATIO 0.9 (1.0-1.7); TOTAL BILIRUBIN 0.4 mg/dL (0.2-1.0); TOTAL PROTEIN 7.9 g/dL (6.4-8.2)
[2019-06-14] MEDS ORDERED: IOHEXOL 300 MG/ML 100ML VIAL. IV ONE (23:45)
[2019-06-14] MEDS ORDERED: CONTRAST GIVEN. MC PRN (23:45)
--- NOTE | 2019-06-15 00:14 | RAD ---
CT abdomen and pelvis with contrast: Reason for examination: Abdominal pain. Helical images were obtained through the abdomen and pelvis with intravenous administration of 75 cc Omnipaque 300. Reconstruction was performed in sagittal and coronal planes. Exposure: One or more of the following individualized dose reduction techniques were utilized for this examination: 1. Automated exposure control 2. Adjustment of the mA and/or kV according to patient size 3. Use of iterative reconstruction technique. The lung bases are clear. The heart size is normal with no pericardial effusion. No abnormality seen at the liver, spleen, adrenal glands or pancreas. The gallbladder is surgically absent. The abdominal aorta and inferior vena cava show no abnormalities. No abnormality seen at the appendix. The colon shows no evidence of diverticulosis, diverticulitis or colitis. The small intestinal tract shows no abnormal dilatation or obstruction. No abnormality seen at the stomach or duodenum. The kidneys show no renal masses, renal calculi, hydronephrosis or obstructive uropathy. No abnormality seen at the bladder or vaginal cuff. There is no evidence of free fluid or free air in the abdomen or pelvis. No acute bony abnormalities evident. IMPRESSION: No abnormality seen at the appendix. No obstructive uropathy. No acute abnormality seen in the abdomen or pelvis. Electronically signed by: Alyson Bennett MD (06/15/2019 12:11 AM) [facility]
[2019-06-15 00:20] VITALS: BP 116/60
[2019-06-15] MEDS ORDERED: ONDA4TAB7 PO (00:28)
--- NOTE | 2019-06-15 07:30 | EKG ---
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
== END 2019-06-15 00:40 | disposition home or self-care (01) ==
LOC: ER 21:40
DX: R10.30 Lower abdominal pain, unspecified (principal); R11.2 Nausea with vomiting, unspecified; R50.9 Fever, unspecified; F32.9 Major depressive disorder, single episode, unspecified; K21.9 Gastro-esophageal reflux disease without esophagitis; Z90.49 Acquired absence of other specified parts of digestive tract; Z90.710 Acquired absence of both cervix and uterus; Z90.89 Acquired absence of other organs; Z88.0 Allergy status to penicillin; Z88.1 Allergy status to other antibiotic agents; Z88.8 Allergy status to other drugs, medicaments and biological substances; Z88.5 Allergy status to narcotic agent; Z88.2 Allergy status to sulfonamides
CPT/HCPCS: 36415; 74177; 80053; 81001; 81025; 83605; 83690; 84484; 85025; 93005; 96361; 96374; 96375; 99285; J2270; J2405; J7030; Q9967

== ENCOUNTER 2020-10-29 20:35 | Emergency (ER) | payer MEDICAID | END 2020-10-29 20:52 | disposition left against medical advice (07) | LOC: ER 20:35 | DX: R10.32 Left lower quadrant pain (principal); Z53.21 Procedure and treatment not carried out due to patient leaving prior to being seen by health care provider ==

== ENCOUNTER 2021-02-11 01:51 | Observation (INO) | payer MEDICAID ==
[~2021-02-11] VITALS: Ht 180.3 cm; Wt 169.4 kg
[~2021-02-11 01:51] MED LIST changes: -OMEP40CA45 PO; +OMEP40CA7 PO
[2021-02-11 02:18] LABS: BILIRUBIN,URINE NEGATIVE (NEG); CLARITY,URINE CLEAR; COLOR,URINE YELLOW; NITRITE,URINE NEGATIVE (NEG); PROTEIN,URINE NEGATIVE (NEG-TRACE); UROBILINOGEN,URINE 0.2 mg/dL (0.2 mg/dL)
[2021-02-11 02:28] LABS: BASO % 0 % (0-3); EOS # 0.3 x10^3/uL (0.0-0.7); EOS % 3 % (0-3); HEMATOCRIT 36.9 % (36.0-47.0); HEMOGLOBIN 12.7 g/dL (12.0-15.5); LYMPH # 2.7 x10^3/uL (1.0-4.8); LYMPH % 27 % (24-48); MEAN CORPUSCULAR HEMOGLOBIN 30 pg (25-35); MEAN CORPUSCULAR HGB CONC 34 g/dL (31-37); MEAN CORPUSCULAR VOLUME 87 fL (79-100); MONO # 0.9 x10^3/uL (0.0-1.1); MONO % 9 % (0-9); NEUT # 5.9 x10^3/uL (1.8-7.7); NEUT % 60 % (31-73); PLATELET COUNT 183 x10^3/uL (140-400); RED BLOOD COUNT 4.22 x10^6/uL (3.50-5.40); RED CELL DISTRIBUTION WIDTH 12.9 % (11.5-14.5); WHITE BLOOD COUNT 9.9 x10^3/uL (4.0-11.0)
[2021-02-11 02:29] LABS: BACTERIA,URINE MODERATE /HPF (0-FEW); RBC,URINE 0 /HPF (0-2); WBC,URINE OCC /HPF (0-4)
--- NOTE | 2021-02-11 02:29 | PHYS DOC ---
Past Medical History Past Medical History: Asthma, Depression, GERD, Hypertension, IBS, Other Additional Past Medical Histor: ENLARGED LIVER, hirtuism, hernia Past Surgical History: Cholecystectomy, Hysterectomy, Tonsillectomy, Other Additional Past Surgical Histo: CYST REMOVED ON TAILBONE Smoking Status: Current Every Day Smoker Additional Information: 0.25 ppd Alcohol Use: None Drug Use: None General Adult EDM: Chief Complaint: ABDOMINAL PAIN HPI: HPI: Patient is a 40 year old female presents with a chief complaint of right lower abdominal/pelvic pain. Patients pain woke her up from sleep around 2300 hrs. Pain is located in the right lower abp/pelvic region-- it has been constant since onset and does not radiate. She has associated nausea without vomiting. Patient reports a previous diagnosis of a hernia in the location of her pain. Review of Systems: Review of Systems: Constitutional: Denies fever or chills. [] Eyes: Denies change in visual acuity. [] HENT: Denies nasal congestion or sore throat. [] Respiratory: Denies cough or shortness of breath. [] Cardiovascular: Denies chest pain or edema. [] GI: Positive abdominal pain, Positive nausea, NO vomiting, bloody stools or diarrhea. [] : Denies dysuria. [] Musculoskeletal: Denies back pain or joint pain. [] Integument: Denies rash. [] Neurologic: Denies headache, focal weakness or sensory changes. [] Endocrine: Denies polyuria or polydipsia. [] Lymphatic: Denies swollen glands. [] Psychiatric: Denies depression or anxiety. [] Heart Score: C/O Chest Pain: N/A Risk Factors: Risk Factors: DM, Current or recent (<one month) smoker, HTN, HLP, family history of CAD, obesity. Risk Scores: Score 0 - 3: 2.5% MACE over next 6 weeks - Discharge Home Score 4 - 6: 20.3% MACE over next 6 weeks - Admit for Clinical Observation Score 7 - 10: 72.7% MACE over next 6 weeks - Early Invasive Strategies Allergies: Allergies: Allergies Coded Allergies Type Severity Reaction Last Updated Verified Penicillins Allergy Intermediate SWEATING 04/01/14 Yes cephalexin Allergy Intermediate SWEATING 04/01/14 Yes dicyclomine Allergy Intermediate 11/04/16 Yes ketorolac Allergy Intermediate 11/27/16 Yes sulfamethoxazole Allergy Intermediate SWEATING 04/01/14 Yes tramadol Allergy Intermediate SWEATING 04/01/14 Yes trimethoprim Allergy Intermediate SWEATING 04/01/14 Yes Physical Exam: PE: General: alert, no acute distress. Skin: warm, dry and intact. Head:: Normocephalic, atraumatic. Neck: Trachea midline. Eyes: EOMI, Normal conjunctiva, No drainage CARDIOVASCULAR: Regular rate and rhythm RESPIRATORY: No respiratory distress Back: Full range of motion. MUSCULOSKELETAL: Full range of motion of bilateral upper and lower extremities. GASTROINTESTINAL: Tenderness to palpation right lower abdomen, NEUROLOGICAL: Alert and noted to person, place and time. No neurological deficits observed Psychiatric: Cooperative. Normal judgment Current Patient Data: Vital Signs: Vital Signs Date Time Temp Pulse Resp B/P (MAP) Pulse Ox O2 Delivery O2 Flow Rate FiO2 02/11/21 02:00 98.8 90 20 140/60 (86) 97 Room Air 98.8 EKG: EKG: [] Radiology/Procedures: Radiology/Procedures: [] Impression: CT abdomen and pelvis with contrast: Reason for examination: Abdominal pain. Comparison is made to previous study dated 06/14/2019. Helical images were obtained through the abdomen and pelvis with intravenous administration of 75 cc Omnipaque 300. Reconstruction was performed in sagittal and coronal planes. Exposure: One or more of the following individualized dose reduction techniques were utilized for this examination: 1. Automated exposure control 2. Adjustment of the mA and/or kV according to patient size 3. Use of iterative reconstruction technique. The lung bases are clear. The heart size is normal with no pericardial effusion. No abnormalities of seen at the liver, spleen, adrenal glands or pancreas. Gallbladder is surgically absent. The abdominal aorta and inferior vena cava show no acute abnormalities. No abnormality seen at the appendix. The colon shows no diverticulosis, diverticulitis or colitis. The small intestinal tract shows no abnormal dilatation, wall thickening or obstruction. No abnormality seen at the stomach or duodenum. The kidneys show no renal masses, renal calculi, hydronephrosis or evidence of obstructive uropathy. No abnormality seen at the bladder or vaginal cuff. There is bandlike increased soft tissue density within the mesentery anteriorly in the pelvis.This could reflect inflammatory change from hernia repair. Recommend clinical correlation. No free fluid or free air seen in the abdomen or pelvis. No acute bony abnormalities are seen. IMPRESSION: Bandlike increased soft tissue density in the mesentery anteriorly in the pelvis. This could reflect inflammatory changes from hernia repair. Recommend clinical correlation. No abnormality seen at the appendix. Course & Med Decision Making: Course & Med Decision Making Pertinent Labs and Imaging studies reviewed. (See chart for details) [] Patient was evaluated for chief complaint. Work-up consisted of laboratory analysis and radiologic imaging. Results reviewed and discussed with patient. Treatment included morphine and Zofran for pain. CT findings bandlike soft tissue density in mesentery anterior to the pelvis-- i nflamatory changes from previous hernia repair. Patient WITHOUT history of hernia surgery. Patient admitted for intractable pain with consult to general surgery. Yessenia Disclaimer: Yessenia Disclaimer: This electronic medical record was generated, in whole or in part, using a voice recognition dictation system. Departure Departure Impression: Primary Impression: Abdominal pain Disposition: HOME / SELF CARE / HOMELESS Condition: STABLE Referrals: NO PCP (PCP) Scripts Hydrocodone/Acetaminophen (Hydrocodone-Acetamin 5-325 mg) 1 Each Tablet 1 EACH PO Q4-6HRS, #14 TAB Prov: KASSI FREEMAN DO 02/11/21 KASSI FREEMAN DO Feb 11, 2021 02:29
[2021-02-11] MEDS ORDERED: ONDANSETRON PF 4 MG/2 ML VIAL. IVP ONE (02:30)
[2021-02-11] MEDS ORDERED: MORPHINE SULFATE 4 MG/ML VIAL. IV ONE (02:30)
[2021-02-11] MEDS ORDERED: IOHEXOL 300 MG/ML 100ML VIAL. IV ONE (02:30)
[2021-02-11] MEDS ORDERED: CONTRAST GIVEN. MC PRN (02:30)
[2021-02-11 02:33] LABS: U PREG PATIENT NEGATIVE (NEG)
[2021-02-11 02:40] LABS: CALCIUM 8.9 mg/dL (8.5-10.1); GFR 61.7; POTASSIUM 3.9 mmol/L (3.5-5.1)
[2021-02-11 02:46] LABS: ALBUMIN 3.4 g/dL (3.4-5.0); ALBUMIN/GLOBULIN RATIO 0.9 (1.0-1.7); TOTAL BILIRUBIN 0.3 mg/dL (0.2-1.0); TOTAL PROTEIN 7.1 g/dL (6.4-8.2)
--- NOTE | 2021-02-11 03:36 | RAD ---
CT abdomen and pelvis with contrast: Reason for examination: Abdominal pain. Comparison is made to previous study dated 06/14/2019. Helical images were obtained through the abdomen and pelvis with intravenous administration of 75 cc Omnipaque 300. Reconstruction was performed in sagittal and coronal planes. Exposure: One or more of the following individualized dose reduction techniques were utilized for thi s examination: 1. Automated exposure control 2. Adjustment of the mA and/or kV according to patient size 3. Use of iterative reconstruction technique. The lung bases are clear. The heart size is normal with no pericardial effusion. No abnormalities of seen at the liver, spleen, adrenal glands or pancreas. Gallbladder is surgically absent. The abdominal aorta and inferior vena cava show no acute abnormalities. No abnormality seen a t the appendix. The colon shows no diverticulosis, diverticulitis or colitis. The small intestinal tr act shows no abnormal dilatation, wall thickening or obstruction. No abnormality seen at the stomach or duodenum. The kidneys show no renal masses, renal calculi, hydronephrosis or evidence of obstructi ve uropathy. No abnormality seen at the bladder or vaginal cuff. There is bandlike increased soft tissue density w ithin the mesentery anteriorly in the pelvis.This could reflect inflammatory change from hernia repai r. Recommend clinical correlation. No free fluid or free air seen in the abdomen or pelvis. No acute bony abnormalities are seen. IMPRESSION: Bandlike increased soft tissue density in the mesentery anteriorly in the pelvis. This could reflect inflammatory changes from hernia repair. Recommend clinical correlation. No abnormality seen at the appendix. Electronically signed by: Alyson Bennett MD (02/11/2021 3:34 AM) DEREK
[2021-02-11] MEDS ORDERED: HYDR-2759 PO (03:48)
[2021-02-11] MEDS ORDERED: ONDANSETRON PF 4 MG/2 ML VIAL. IV PRN (04:15)
[2021-02-11 05:10] VITALS: BP 105/64
[2021-02-11] MEDS: MORPHINE SULFATE 4 MG/ML VIAL. IV PRN ×3 (05:56→18:04)
[2021-02-11] MEDS ORDERED: TRIA1CAP3 PO (06:32)
[2021-02-11] MEDS ORDERED: FLUO40CA2 PO (06:32)
[2021-02-11] MEDS ORDERED: OMEP40CA7 PO (06:32)
[2021-02-11] MEDS ORDERED: ROPI0.254 PO (06:32)
[2021-02-11 06:55] VITALS: BP 97/60
--- NOTE | 2021-02-11 10:15 | PDOC2 ---
TRUMAN MURRY BRONZE CHASER 02/11/21 1015: CONSULT Date of Consult Date of Consult DATE: 02/11/21 TIME: 10:09 Reason for Consult Reason for Consult: hernia Referring Physician Referring Physician: ER Identification/Chief Complaint Chief Complaint groin pain Source Source: Chart review, Patient History of Present Illness Reason for Visit: reports awoke with acute groin pain, has never had pain before. Reports a right groin hernia for a 1 year--not a knot, but swelling, that she can push back in place per pt. yesterday was painful, could not push it back Past Medical History Pulmonary: Asthma GI: GERD, Other Psych: Bipolar, Depression Renal/: Other Past Surgical History Past Surgical History: Cholecystectomy, Tonsillectomy, Hysterectomy, Other Family History Family History: Heart Disease, High Cholestrol, Hypertension, Other Social History ALCOHOL: occassional Drugs: None Lives: with Family Current Problem List Problem List Problems Medical Problems: (1) Abdominal pain Status: Acute Current Medications Current Medications Current Medications Morphine Sulfate (Morphine Sulfate) 4 mg 1X ONCE IV Last administered on 02/11/21at 02:34; Start 02/11/21 at 02:30; Stop 02/11/21 at 02:31; Status DC Ondansetron HCl (Zofran) 4 mg 1X ONCE IVP Last administered on 02/11/21at 02:34; Start 02/11/21 at 02:30; Stop 02/11/21 at 02:31; Status DC Iohexol (Omnipaque 300 Mg/ml) 75 ml 1X ONCE IV Last administered on 02/11/21at 02:53; Start 02/11/21 at 02:30; Stop 02/11/21 at 02:31; Status DC Info (CONTRAST GIVEN -- Rx MONITORING) 1 each PRN DAILY PRN MC SEE COMMENTS; Start 02/11/21 at 02:30; Stop 02/13/21 at 02:29 Ondansetron HCl (Zofran) 4 mg PRN Q8HRS PRN IV NAUSEA/VOMITING; Start 02/11/21 at 04:15; Stop 02/12/21 at 04:14 Morphine Sulfate (Morphine Sulfate) 4 mg PRN Q2HR PRN IV PAIN Last administered on 02/11/21at 05:56; Start 02/11/21 at 04:15; Stop 02/12/21 at 04:14 Active Scripts Active Hydrocodone-Acetamin 5-325 mg (Hydrocodone/Acetaminophen) 1 Each Tablet 1 Each PO Q4-6HRS Zofran (Ondansetron Hcl) 4 Mg Tablet 1 Tab PO Q6HRS Zofran (Ondansetron Hcl) 4 Mg Tablet 4 Mg PO PRN TID PRN nausea/vomiting Tylenol With Codeine #3 Tablet (Acetaminophen/Codeine Phosphate) 1 Each Tablet 1 Tab PO PRN Q6HRS PRN Comer 5-325 Tablet (Acetaminophen/Hydrocodone Bitart) 1 Each Tablet 1-2 Tab PO Q4-6HRS PRN Medrol (Methylprednisolone) 4 Mg Tab.ds.pk 1 Pkg PO UD Zofran Odt (Ondansetron) 4 Mg Tab.rapdis 1 Tab SL Q8HRS Comer 5-325 Tablet (Acetaminophen/Hydrocodone Bitart) 1 Each Tablet 1 Tab PO PRN Q6HRS PRN Levaquin (Levofloxacin) 500 Mg Tablet 500 Mg PO DAILY06 5 Days [guaiFENesin/CODEINE 100mg/10mg] 5 ML Liquid 5 Ml PO PRN Q6HRS PRN 7 Days Reported Ropinirole Hcl 0.25 Mg Tablet 1 Tab PO QHS Fluoxetine Hcl 40 Mg Capsule 1 Cap PO DAILY Omeprazole 40 Mg Capsule.dr 1 Cap PO BID Triamterene-Hctz 37.5-25 Mg Cp (Triamterene/Hydrochlorothiazid) 1 Each Capsule 1 Cap PO DAILY Ranitidine Hcl 300 Mg Tablet 1 Tab PO BID Not given here Take again tonight Zoloft (Sertraline Hcl) 100 Mg Tablet 150 Mg PO DAILY Gave dose today Take again tomorrow Albuterol Sulfate Hfa Inhaler (Albuterol Sulfate) 8.5 Gm Hfa.aer.ad 2 Puff INH Q ID Not given on this admission Take again as previously scheduled Allergies Allergies: Coded Allergies: Penicillins (Verified Allergy, Intermediate, SWEATING, 04/01/14) cephalexin (Verified Allergy, Intermediate, SWEATING, 04/01/14) dicyclomine (Verified Allergy, Intermediate, 11/04/16) ketorolac (Verified Allergy, Intermediate, 07/26/16) sulfamethoxazole (Verified Allergy, Intermediate, SWEATING, 04/01/14) tramadol (Verified Allergy, Intermediate, SWEATING, 04/01/14) trimethoprim (Verified Allergy, Intermediate, SWEATING, 04/01/14) ROS General: No: Chills, Other (fevers ) PSYCHOLOGICAL ROS: No: Anxiety, Depression Eyes: No Blurry vision, No Double vision HEENT: No: Heacaches, Sore Throat Hematological and Lymphatic: No: Bleeding Problems, Blood Clots Respiratory: No: Cough, Shortness of breath Cardiovascular: No Chest Pain, No Palpitations Gastrointestinal: No Vomiting, No Diarrhea, No Constipation Genitourinary: No Dysuria, No Hematuria Musculoskeletal: No Joint Pain, No Muscle Pain Neurological: No Impaired Coord/balance, No Numbness/Tingling Skin: No Pruritus, No Rash Physical Exam Physical Exam difficult groin exam, she has significant pain with light palpation, large body habitus makes difficult to appreciate a inguinal hernia General: Alert, Oriented X3, Cooperative HEENT: Atraumatic, PERRLA Lungs: Clear to auscultation, Normal air movement Heart: Regular rate, Normal S1, Normal S2 Abdomen: Soft, No tenderness Extremities: No clubbing, No cyanosis Skin: No rashes, No breakdown Neuro: Normal gait, Normal speech Psych/Mental Status: Mental status NL, Mood NL MUSCULOSKELETAL: No deformity, No swelling Vitals VITALS Vital Signs Date Time Temp Pulse Resp B/P (MAP) Pulse Ox O2 Delivery O2 Flow Rate FiO2 02/11/21 06:55 97.7 77 18 97/60 (72) 92 Room Air 97.7 Labs Labs Laboratory Tests Test 02/11/21 02:05 02/11/21 02:10 White Blood Count 9.9 x10^3/uL (4.0-11.0) Red Blood Count 4.22 x10^6/uL (3.50-5.40) Hemoglobin 12.7 g/dL (12.0-15.5) Hematocrit 36.9 % (36.0-47.0) Mean Corpuscular Volume 87 fL (79-100) Mean Corpuscular Hemoglobin 30 pg (25-35) Mean Corpuscular Hemoglobin Concent 34 g/dL (31-37) Red Cell Distribution Width 12.9 % (11.5-14.5) Platelet Count 183 x10^3/uL (140-400) Neutrophils (%) (Auto) 60 % (31-73) Lymphocytes (%) (Auto) 27 % (24-48) Monocytes (%) (Auto) 9 % (0-9) Eosinophils (%) (Auto) 3 % (0-3) Basophils (%) (Auto) 0 % (0-3) Neutrophils # (Auto) 5.9 x10^3/uL (1.8-7.7) Lymphocytes # (Auto) 2.7 x10^3/uL (1.0-4.8) Monocytes # (Auto) 0.9 x10^3/uL (0.0-1.1) Eosinophils # (Auto) 0.3 x10^3/uL (0.0-0.7) Basophils # (Auto) 0.0 x10^3/uL (0.0-0.2) Sodium Level 143 mmol/L (136-145) Potassium Level 3.9 mmol/L (3.5-5.1) Chloride Level 107 mmol/L (98-107) Carbon Dioxide Level 28 mmol/L (21-32) Anion Gap 8 (6-14) Blood Urea Nitrogen 16 mg/dL (7-20) Creatinine 1.0 mg/dL (0.6-1.0) Estimated GFR (Cockcroft-Gault) 61.7 BUN/Creatinine Ratio 16 (6-20) Glucose Level 164 mg/dL (70-99) Calcium Level 8.9 mg/dL (8.5-10.1) Total Bilirubin 0.3 mg/dL (0.2-1.0) Aspartate Amino Transf (AST/SGOT) 33 U/L (15-37) Alanine Aminotransferase (ALT/SGPT) 61 U/L (14-59) Alkaline Phosphatase 86 U/L (46-116) Total Protein 7.1 g/dL (6.4-8.2) Albumin 3.4 g/dL (3.4-5.0) Albumin/Globulin Ratio 0.9 (1.0-1.7) Lipase 250 U/L (73-393) Urine Collection Type Unknown Urine Color Yellow Urine Clarity Clear Urine pH 5.0 (<5.0-8.0) Urine Specific Rebecca >=1.030 (1.000-1.030) Urine Protein Negative mg/dL (NEG-TRACE) Urine Glucose (UA) Negative mg/dL (NEG) Urine Ketones (Stick) Negative mg/dL (NEG) Urine Blood Negative (NEG) Urine Nitrite Negative (NEG) Urine Bilirubin Negative (NEG) Urine Urobilinogen Dipstick 0.2 mg/dL (0.2 mg/dL) Urine Leukocyte Esterase Negative (NEG) Urine RBC 0 /HPF (0-2) Urine WBC Occ /HPF (0-4) Urine Squamous Epithelial Cells Many /LPF Urine Bacteria Moderate /HPF (0-FEW) Urine Mucus Mod /LPF Urine Test Negative (NEG) Laboratory Tests Test 02/11/21 02:05 02/11/21 02:10 White Blood Count 9.9 x10^3/uL (4.0-11.0) Red Blood Count 4.22 x10^6/uL (3.50-5.40) Hemoglobin 12.7 g/dL (12.0-15.5) Hematocrit 36.9 % (36.0-47.0) Mean Corpuscular Volume 87 fL (79-100) Mean Corpuscular Hemoglobin 30 pg (25-35) Mean Corpuscular Hemoglobin Concent 34 g/dL (31-37) Red Cell Distribution Width 12.9 % (11.5-14.5) Platelet Count 183 x10^3/uL (140-400) Neutrophils (%) (Auto) 60 % (31-73) Lymphocytes (%) (Auto) 27 % (24-48) Monocytes (%) (Auto) 9 % (0-9) Eosinophils (%) (Auto) 3 % (0-3) Basophils (%) (Auto) 0 % (0-3) Neutrophils # (Auto) 5.9 x10^3/uL (1.8-7.7) Lymphocytes # (Auto) 2.7 x10^3/uL (1.0-4.8) Monocytes # (Auto) 0.9 x10^3/uL (0.0-1.1) Eosinophils # (Auto) 0.3 x10^3/uL (0.0-0.7) Basophils # (Auto) 0.0 x10^3/uL (0.0-0.2) Sodium Level 143 mmol/L (136-145) Potassium Level 3.9 mmol/L (3.5-5.1) Chloride Level 107 mmol/L (98-107) Carbon Dioxide Level 28 mmol/L (21-32) Anion Gap 8 (6-14) Blood Urea Nitrogen 16 mg/dL (7-20) Creatinine 1.0 mg/dL (0.6-1.0) Estimated GFR (Cockcroft-Gault) 61.7 BUN/Creatinine Ratio 16 (6-20) Glucose Level 164 mg/dL (70-99) Calcium Level 8.9 mg/dL (8.5-10.1) Total Bilirubin 0.3 mg/dL (0.2-1.0) Aspartate Amino Transf (AST/SGOT) 33 U/L (15-37) Alanine Aminotransferase (ALT/SGPT) 61 U/L (14-59) Alkaline Phosphatase 86 U/L (46-116) Total Protein 7.1 g/dL (6.4-8.2) Albumin 3.4 g/dL (3.4-5.0) Albumin/Globulin Ratio 0.9 (1.0-1.7) Lipase 250 U/L (73-393) Urine Collection Type Unknown Urine Color Yellow Urine Clarity Clear Urine pH 5.0 (<5.0-8.0) Urine Specific Rebecca >=1.030 (1.000-1.030) Urine Protein Negative mg/dL (NEG-TRACE) Urine Glucose (UA) Negative mg/dL (NEG) Urine Ketones (Stick) Negative mg/dL (NEG) Urine Blood Negative (NEG) Urine Nitrite Negative (NEG) Urine Bilirubin Negative (NEG) Urine Urobilinogen Dipstick 0.2 mg/dL (0.2 mg/dL) Urine Leukocyte Esterase Negative (NEG) Urine RBC 0 /HPF (0-2) Urine WBC Occ /HPF (0-4) Urine Squamous Epithelial Cells Many /LPF Urine Bacteria Moderate /HPF (0-FEW) Urine Mucus Mod /LPF Urine Test Negative (NEG) Assessment/Plan Assessment/Plan groin pain ct reviewed, no definite hernia noted, showed -Bandlike increased soft tissue density in the mesentery anteriorly in the pelvis difficult to appreciate a hernia on exam + smoker, BMI 52 will review with KAY Jung MD 02/11/21 3667: CONSULT Assessment/Plan Assessment/Plan Pt seen and examined by myself; 40 year old female reported with pain in the right groin, states it has been present for nearly a year but worsened yesterday. She denies radiation of the pain or inciting factors, the pain is relieved by pain medication. During her evaluation a CT scan was obtained with described a "soft tissue density in the mesentery in the pelvis". PMH/PSH/ROS/SH as above; exam: alert, oriented, no distress, lungs clear, heart RR and R, abdomen morbidly obese, soft, focal tenderness in low right groin, no hernia palpable, no erythema; ext neg for edema or deformity; labs and xrays reviewed, CT reviewed with radiology; No clear source of her focal groin pain, no hernia on exam or by CT scan. Suspect musculoskeletal etiology; incidental finding of increased soft tissue density anteriorly in pelvis, not tender on exam in this location. Review of prior CT scans do not show this prior to 2017. In [address] scans begin to show this which has become more prominent on current CT scan. In review with radiology not suggestive of malignant process particularly given presence over the last few years. Seems to be incidental based on exam; no specific recommendation for this, but in the future if this process worsens then a core needle biopsy may be beneficial. TRUMAN MURRY APRN Feb 11, 2021 10:15 KAY WHELAN MD Feb 11, 2021 15:09
[2021-02-11 10:32] VITALS: BP 99/53
--- NOTE | 2021-02-11 10:43 | PDOC1 ---
History and Physical Date of Admission Date of Admission DATE: 02/11/21 TIME: 10:43 Identification/Chief Complaint Chief Complaint RLQ ABD PAIN, nausea History of Present Illness History of Present Illness 40 year old female chief complaint of right lower abdominal/pelvic pain. pain woke her up from sleep around 2300 hrs. 6-14 located in the right lower abp/pelvic region-- it has been constant since onset and does not radiate. has associated nausea without vomiting. CT REVIEWED pmh ovarian cancer post [facility] 2014 NO HX FOLLOW UP per patient morbid obesity Tobacco abuse disorder //HX ovarian ca post [facility] 2014 [facility] Past Medical History Past Medical History Past Medical History Past Medical History: Asthma, Depression, GERD, Hypertension, IBS, Other ovarian cancer 2014 [facility] Additional Past Medical Histor: ENLARGED LIVER, hirtuism, hernia Past Surgical History: Cholecystectomy, Hysterectomy, Tonsillectomy, Other Additional Past Surgical Histo: CYST REMOVED ON TAILBONE Smoking Status: Current Every Day Smoker Additional Information: 0.25 ppd Alcohol Use: None Drug Use: None FHX OBESITY Pulmonary: Asthma GI: GERD, Other Psych: Bipolar, Depression Renal/: Other Endocrine: Other ([place]) Past Surgical History Past Surgical History: Cholecystectomy, Tonsillectomy, Hysterectomy, Other Family History Family History: Heart Disease, High Cholestrol, Hypertension, Other Social History Smoke: <1 pack per day ALCOHOL: occassional Drugs: None Current Problem List Problem List Problems Medical Problems: (1) Abdominal pain Status: Acute Current Medications Current Medications Current Medications Morphine Sulfate (Morphine Sulfate) 4 mg 1X ONCE IV Last administered on 02/11/21at 02:34; Start 02/11/21 at 02:30; Stop 02/11/21 at 02:31; Status DC Ondansetron HCl (Zofran) 4 mg 1X ONCE IVP Last administered on 02/11/21at 02:34; Start 02/11/21 at 02:30; Stop 02/11/21 at 02:31; Status DC Iohexol (Omnipaque 300 Mg/ml) 75 ml 1X ONCE IV Last administered on 02/11/21at 02:53; Start 02/11/21 at 02:30; Stop 02/11/21 at 02:31; Status DC Info (CONTRAST GIVEN -- Rx MONITORING) 1 each PRN DAILY PRN MC SEE COMMENTS; Start 02/11/21 at 02:30; Stop 02/13/21 at 02:29 Ondansetron HCl (Zofran) 4 mg PRN Q8HRS PRN IV NAUSEA/VOMITING; Start 02/11/21 at 04:15; Stop 02/12/21 at 04:14 Morphine Sulfate (Morphine Sulfate) 4 mg PRN Q2HR PRN IV PAIN Last administered on 02/11/21at 10:12; Start 02/11/21 at 04:15; Stop 02/12/21 at 04:14 Active Scripts Active Hydrocodone-Acetamin 5-325 mg (Hydrocodone/Acetaminophen) 1 Each Tablet 1 Each PO Q4-6HRS Zofran (Ondansetron Hcl) 4 Mg Tablet 1 Tab PO Q6HRS Zofran (Ondansetron Hcl) 4 Mg Tablet 4 Mg PO PRN TID PRN nausea/vomiting Tylenol With Codeine #3 Tablet (Acetaminophen/Codeine Phosphate) 1 Each Tablet 1 Tab PO PRN Q6HRS PRN Atwood 5-325 Tablet (Acetaminophen/Hydrocodone Bitart) 1 Each Tablet 1-2 Tab PO Q4-6HRS PRN Medrol (Methylprednisolone) 4 Mg Tab.ds.pk 1 Pkg PO UD Zofran Odt (Ondansetron) 4 Mg Tab.rapdis 1 Tab SL Q8HRS Atwood 5-325 Tablet (Acetaminophen/Hydrocodone Bitart) 1 Each Tablet 1 Tab PO PRN Q6HRS PRN Levaquin (Levofloxacin) 500 Mg Tablet 500 Mg PO DAILY06 5 Days [guaiFENesin/CODEINE 100mg/10mg] 5 ML Liquid 5 Ml PO PRN Q6HRS PRN 7 Days Reported Ropinirole Hcl 0.25 Mg Tablet 1 Tab PO QHS Fluoxetine Hcl 40 Mg Capsule 1 Cap PO DAILY Omeprazole 40 Mg Capsule.dr 1 Cap PO BID Triamterene-Hctz 37.5-25 Mg Cp (Triamterene/Hydrochlorothiazid) 1 Each Capsule 1 Cap PO DAILY Ranitidine Hcl 300 Mg Tablet 1 Tab PO BID Not given here Take again tonight Zoloft (Sertraline Hcl) 100 Mg Tablet 150 Mg PO DAILY Gave dose today Take again tomorrow Albuterol Sulfate Hfa Inhaler (Albuterol Sulfate) 8.5 Gm Hfa.aer.ad 2 Puff INH QID Not given on this admission Take again as previously scheduled Allergies Allergies: Coded Allergies: Penicillins (Verified Allergy, Intermediate, SWEATING, 04/01/14) cephalexin (Verified Allergy, Intermediate, SWEATING, 04/01/14) dicyclomine (Verified Allergy, Intermediate, 11/04/16) ketorolac (Verified Allergy, Intermediate, 07/26/16) sulfamethoxazole (Verified Allergy, Intermediate, SWEATING, 04/01/14) tramadol (Verified Allergy, Intermediate, SWEATING, 04/01/14) trimethoprim (Verified Allergy, Intermediate, SWEATING, 04/01/14) ROS General: No: Chills, Night Sweats, Fatigue, Malaise, Appetite, Other PSYCHOLOGICAL ROS: No: Anxiety, Behavioral Disorder, Concentration difficultie, Decreased libido, Depression, Disorientation, Hallucinations, Hostility, Irritablity, Memory difficulties, Mood Swings, Obsessive thoughts, Physical abuse, Sexual abuse, Sleep disturbances, Suicidal ideation, Other Eyes: No Blurry vision, No Decreased vision, No Double vision, No Dry eyes, No Excessive tearing, No Eye Pain, No Itchy Eyes, No Loss of vision, No Photophobia, No Scotomata, No Uses contacts, No Uses glasses, No Other HEENT: No: Heacaches, Visual Changes, Hearing change, Nasal congestion, Nasal discharge, Oral lesions, Sinus pain, Sore Throat, Epistaxis, Sneezing, Snoring, Tinnitus, Vertigo, Vocal changes, Other ALLERGY AND IMMUNOLOGY: No: Hives, Insect Bite Sensitivity, Itchy/Watery Eyes, Nasal Congestion, Post Nasal Drip, Seasonal Allergies, Other Hematological and Lymphatic: No: Bleeding Problems, Blood Clots, Blood Transfusions, Brusing, Night Sweats, Pallor, Swollen Lymph Nodes, Other ENDOCRINE: No: Breast Changes, Galactorrhea, Hair Pattern Changes, Hot Flashes, Malaise/lethargy, Mood Swings, Palpitations, Polydipsia/polyuria, Skin Changes, Temperature Intolerance, Unexpected Weight Changes, Other Breast: No New/Changing Breast Lumps, No Nipple changes, No Nipple discharge, No Other Respiratory: No: Cough, Hemoptysis, Orthopnea, Pleuritic Pain, Shortness of breath, SOB with excertion, Sputum Changes, Stridor, Tachypnea, Wheezing, Other Cardiovascular: No Chest Pain, No Palpitations, No Orthopnea, No Paroxysmal Noc. Dyspnea, No Edema, No Lt Headedness, No Other Gastrointestinal: Yes Nausea, Yes Vomiting, Yes Abdominal Pain; No Diarrhea, No Constipation, No Melena, No Hematochezia, No Other Genitourinary: No Dysuria, No Frequency, No Incontinence, No Hematuria, No Retention, No Discharge, No Urgency, No Pain, No Flank Pain, No Other, No , No , No , No , No , No , No Musculoskeletal: No Gait Disturbance, No Joint Pain, No Joint Stiffness, No Joint Swelling, No Muscle Pain, No Muscular Weakness, No Pain In:, No Swelling In:, No Other Neurological: No Behavorial Changes, No Bowel/Bladder ControlChng, No Confusion, No Dizziness, No Gait Disturbance, No Headaches, No Impaired Coord/balance, No Memory Loss, No Numbness/Tingling, No Seizures, No Speech Problems, No Tremors, No Visual Changes, No Weakness, No Other Skin: No Dry Skin, No Eczema, No Hair Changes, No Lumps, No Mole Changes, No Mottling, No Nail Changes, No Pruritus, No Rash, No Skin Lesion Changes, No Other, No Acne Physical Exam General: Alert, Oriented X3, Cooperative, No acute distress HEENT: Atraumatic, PERRLA, EOMI, Mucous membr. moist/pink Lungs: Clear to auscultation, Normal air movement Heart: RRR Breasts: Not examined Abdomen: Normal bowel sounds, Soft, No tenderness, Other (VERY OBESE) Rectal Exam: not examined PELVIC: Examination not indicated Extremities: No cyanosis, No edema Skin: No breakdown, No significant lesion Neuro: Normal speech, Strength at 5/5 X4 ext, Sensation intact, Cranial nerves 3-12 NL Psych/Mental Status: Mental status NL, Mood NL Vitals Vitals Vital Signs Date Time Temp Pulse Resp B/P (MAP) Pulse Ox O2 Delivery O2 Flow Rate FiO2 02/11/21 10:32 97.6 68 18 99/53 (68) 94 Room Air 97.6 Labs Labs Laboratory Tests Test 02/11/21 02:05 02/11/21 02:10 White Blood Count 9.9 x10^3/uL (4.0-11.0) Red Blood Count 4.22 x10^6/uL (3.50-5.40) Hemoglobin 12.7 g/dL (12.0-15.5) Hematocrit 36.9 % (36.0-47.0) Mean Corpuscular Volume 87 fL (79-100) Mean Corpuscular Hemoglobin 30 pg (25-35) Mean Corpuscular Hemoglobin Concent 34 g/dL (31-37) Red Cell Distribution Width 12.9 % (11.5-14.5) Platelet Count 183 x10^3/uL (140-400) Neutrophils (%) (Auto) 60 % (31-73) Lymphocytes (%) (Auto) 27 % (24-48) Monocytes (%) (Auto) 9 % (0-9) Eosinophils (%) (Auto) 3 % (0-3) Basophils (%) (Auto) 0 % (0-3) Neutrophils # (Auto) 5.9 x10^3/uL (1.8-7.7) Lymphocytes # (Auto) 2.7 x10^3/uL (1.0-4.8) Monocytes # (Auto) 0.9 x10^3/uL (0.0-1.1) Eosinophils # (Auto) 0.3 x10^3/uL (0.0-0.7) Basophils # (Auto) 0.0 x10^3/uL (0.0-0.2) Sodium Level 143 mmol/L (136-145) Potassium Level 3.9 mmol/L (3.5-5.1) Chloride Level 107 mmol/L (98-107) Carbon Dioxide Level 28 mmol/L (21-32) Anion Gap 8 (6-14) Blood Urea Nitrogen 16 mg/dL (7-20) Creatinine 1.0 mg/dL (0.6-1.0) Estimated GFR (Cockcroft-Gault) 61.7 BUN/Creatinine Ratio 16 (6-20) Glucose Level 164 mg/dL (70-99) Calcium Level 8.9 mg/dL (8.5-10.1) Total Bilirubin 0.3 mg/dL (0.2-1.0) Aspartate Amino Transf (AST/SGOT) 33 U/L (15-37) Alanine Aminotransferase (ALT/SGPT) 61 U/L (14-59) Alkaline Phosphatase 86 U/L (46-116) Total Protein 7.1 g/dL (6.4-8.2) Albumin 3.4 g/dL (3.4-5.0) Albumin/Globulin Ratio 0.9 (1.0-1.7) Lipase 250 U/L (73-393) Urine Collection Type Unknown Urine Color Yellow Urine Clarity Clear Urine pH 5.0 (<5.0-8.0) Urine Specific Barrett >=1.030 (1.000-1.030) Urine Protein Negative mg/dL (NEG-TRACE) Urine Glucose (UA) Negative mg/dL (NEG) Urine Ketones (Stick) Negative mg/dL (NEG) Urine Blood Negative (NEG) Urine Nitrite Negative (NEG) Urine Bilirubin Negative (NEG) Urine Urobilinogen Dipstick 0.2 mg/dL (0.2 mg/dL) Urine Leukocyte Esterase Negative (NEG) Urine RBC 0 /HPF (0-2) Urine WBC Occ /HPF (0-4) Urine Squamous Epithelial Cells Many /LPF Urine Bacteria Moderate /HPF (0-FEW) Urine Mucus Mod /LPF Urine Test Negative (NEG) Laboratory Tests Test 02/11/21 02:05 02/11/21 02:10 White Blood Count 9.9 x10^3/uL (4.0-11.0) Red Blood Count 4.22 x10^6/uL (3.50-5.40) Hemoglobin 12.7 g/dL (12.0-15.5) Hematocrit 36.9 % (36.0-47.0) Mean Corpuscular Volume 87 fL (79-100) Mean Corpuscular Hemoglobin 30 pg (25-35) Mean Corpuscular Hemoglobin Concent 34 g/dL (31-37) Red Cell Distribution Width 12.9 % (11.5-14.5) Platelet Count 183 x10^3/uL (140-400) Neutrophils (%) (Auto) 60 % (31-73) Lymphocytes (%) (Auto) 27 % (24-48) Monocytes (%) (Auto) 9 % (0-9) Eosinophils (%) (Auto) 3 % (0-3) Basophils (%) (Auto) 0 % (0-3) Neutrophils # (Auto) 5.9 x10^3/uL (1.8-7.7) Lymphocytes # (Auto) 2.7 x10^3/uL (1.0-4.8) Monocytes # (Auto) 0.9 x10^3/uL (0.0-1.1) Eosinophils # (Auto) 0.3 x10^3/uL (0.0-0.7) Basophils # (Auto) 0.0 x10^3/uL (0.0-0.2) Sodium Level 143 mmol/L (136-145) Potassium Level 3.9 mmol/L (3.5-5.1) Chloride Level 107 mmol/L (98-107) Carbon Dioxide Level 28 mmol/L (21-32) Anion Gap 8 (6-14) Blood Urea Nitrogen 16 mg/dL (7-20) Creatinine 1.0 mg/dL (0.6-1.0) Estimated GFR (Cockcroft-Gault) 61.7 BUN/Creatinine Ratio 16 (6-20) Glucose Level 164 mg/dL (70-99) Calcium Level 8.9 mg/dL (8.5-10.1) Total Bilirubin 0.3 mg/dL (0.2-1.0) Aspartate Amino Transf (AST/SGOT) 33 U/L (15-37) Alanine Aminotransferase (ALT/SGPT) 61 U/L (14-59) Alkaline Phosphatase 86 U/L (46-116) Total Protein 7.1 g/dL (6.4-8.2) Albumin 3.4 g/dL (3.4-5.0) Albumin/Globulin Ratio 0.9 (1.0-1.7) Lipase 250 U/L (73-393) Urine Collection Type Unknown Urine Color Yellow Urine Clarity Clear Urine pH 5.0 (<5.0-8.0) Urine Specific Barrett >=1.030 (1.000-1.030) Urine Protein Negative mg/dL (NEG-TRACE) Urine Glucose (UA) Negative mg/dL (NEG) Urine Ketones (Stick) Negative mg/dL (NEG) Urine Blood Negative (NEG) Urine Nitrite Negative (NEG) Urine Bilirubin Negative (NEG) Urine Urobilinogen Dipstick 0.2 mg/dL (0.2 mg/dL) Urine Leukocyte Esterase Negative (NEG) Urine RBC 0 /HPF (0-2) Urine WBC Occ /HPF (0-4) Urine Squamous Epithelial Cells Many /LPF Urine Bacteria Moderate /HPF (0-FEW) Urine Mucus Mod /LPF Urine Test Negative (NEG) Images Images PATIENT: TUYET LLOYD ACCOUNT: [id number] : 1980 LOCATION: ER AGE: 40 SEX: F EXAM STATUS: REG ER ORD. PHYSICIAN: KASSI FREEMAN DO REASON: abdominal pain PROCEDURE: CT ABD PELV W/ IV CONTRST ONLY CT abdomen and pelvis with contrast: Reason for examination: Abdominal pain. Comparison is made to previous study dated 06/14/2019. Helical images were obtained through the abdomen and pelvis with intravenous administration of 75 cc Omnipaque 300. Reconstruction was performed in sagittal and coronal planes. Exposure: One or more of the following individualized dose reduction techniques were utilized for this examination: 1. Automated exposure control 2. Adjustment of the mA and/or kV according to patient size 3. Use of iterative reconstruction technique. The lung bases are clear. The heart size is normal with no pericardial effusion. No abnormalities of seen at the liver, spleen, adrenal glands or pancreas. Gallbladder is surgically absent. The abdominal aorta and inferior vena cava show no acute abnormalities. No abnormality seen at the appendix. The colon shows no diverticulosis, diverticulitis or colitis. The small intestinal tract shows no abnormal dilatation, wall thickening or obstruction. No abnormality seen at the stomach or duodenum. The kidneys show no renal masses, renal calculi, hydronephrosis or evidence of obstructive uropathy. No abnormality seen at the bladder or vaginal cuff. There is bandlike increased soft tissue density within the mesentery anteriorly in the pelvis.This could reflect inflammatory change from hernia repair. Recommend clinical correlation. No free fluid or free air seen in the abdomen or pelvis. No acute bony abnormalities are seen. IMPRESSION: Bandlike increased soft tissue density in the mesentery anteriorly in the pelvis. This could reflect inflammatory changes from hernia repair. Recommend clinical correlation. No abnormality seen at the appendix. Electronically signed by: Miguel Marie MD (02/11/2021 3:34 AM) [facility] DICTATED and SIGNED BY: MIGUEL MARIE MD DATE: 02/11/21 [id number] 0 VTE Prophylaxis Ordered VTE Prophylaxis Devices: No VTE Pharmacological Prophylaxi: Yes Assessment/Plan Assessment/Plan IMPRESSION: Abdominal pain Bandlike increased soft tissue density in the mesentery anteriorly in the pelvis. This could reflect inflammatory changes from hernia repair morbid obesity Tobacco abuse disorder HX ovarian ca post JAYY 2014 [facility] plan ADMIT GEN SURGERY CONSULT pain control dvt prophylaxis IV FLUIDS CA 125 lab scientist consult Justifications for Admission Other Justification ALEX VARGAS MD Feb 11, 2021 10:43
[2021-02-11 14:28] VITALS: BP 115/82
--- NOTE | 2021-02-11 14:34 | NUR ---
SS following for discharge planning. SS reviewed pt chart and discussed with pt RN. Pt is from home and is currently on room air. BMI of 52. Pt is current smoker. Surgery consulted for possible Hernia. Currently awaiting surgery recommendations at this time. SS will continue to follow for discharge planning.
[2021-02-11] MEDS ORDERED: DEXTROSE 50% 25 GM / 50ML DISP.SYRIN. IV PRN (15:00)
[2021-02-11] MEDS ORDERED: INSULIN LISPRO 300 UNITS/3 ML VIAL. SQ SCH ×2 (17:00)
[2021-02-11 19:00] VITALS: BP 127/67
--- NOTE | 2021-02-11 20:10 | NUR ---
Pt was admitted 02/11/2021 At 0510 for abd pain and hernia. Pt advised BEER BREWER that she would like to go home. BEER BREWER told this RN that pt wanted to leave. RN went back to talk to pt, pt stated that she was feeling fine and wanted to get home to take care of her sick mother. Pt very pleasant. RN got pt to sign AMA paperwork and took IV out, advised Dr. Kumar, and Dr. Perez. [employer] contacted and security called to escort pt down. This RN walked with security and pt to the ED to wait on ride.
--- NOTE | 2021-02-11 20:24 | PDOC3 ---
Discharge Summary Date of Admission: Feb 11, 2021 Date of Discharge: Feb 11, 2021 Follow-Up: Other (left ama) Admitting Diagnosis comment: left ama no instructions given Identification/Chief Complaint Chief Complaint RLQ ABD PAIN, nausea History of Present Illness History of Present Illness 40 year old female chief complaint of right lower abdominal/pelvic pain. pain woke her up from sleep around 2300 hrs. 6-14 located in the right lower abp/pelvic region-- it has been constant since onset and does not radiate. has associated nausea without vomiting. CT REVIEWED pmh ovarian cancer post [facility] 2014 NO HX FOLLOW UP per patient morbid obesity Tobacco abuse disorder //HX ovarian ca post [facility] Past Medical History Past Medical History Past Medical History Past Medical History: Asthma, Depression, GERD, Hypertension, IBS, Other [facility] cancer [facility] Additional Past Medical Histor: ENLARGED LIVER, hirtuism, hernia Past Surgical History: Cholecystectomy, Hysterectomy, Tonsillectomy, Other Additional Past Surgical Histo[facility] Smoking Status: Current Every Day Smoker Additional Information: 0.25 ppd Alcohol Use: None Drug Use: None FHX OBESITY Pulmonary: Asthma GI: GERD, Other Psych: Bipolar, Depression Renal/: Other Endocrine: Other ([place]) Past Surgical History Past Surgical History: Cholecystectomy, Tonsillectomy, Hysterectomy, Other Family History Family History: Heart Disease, High Cholestrol, Hypertension, Other Social History Smoke: <1 pack per day ALCOHOL: occassional Drugs: None Current Problem List Problem List Problems Medical Problems: (1) Abdominal pain Status: Acute Current Medications Current Medications Current Medications Morphine Sulfate (Morphine Sulfate) 4 mg 1X ONCE IV Last administered on 02/11/21at 02:34; Start 02/11/21 at 02:30; Stop 02/11/21 at 02:31; Status DC Ondansetron HCl (Zofran) 4 mg 1X ONCE IVP Last administered on 02/11/21at 02:34; Start 02/11/21 at 02:30; Stop 02/11/21 at 02:31; Status DC Iohexol (Omnipaque 300 Mg/ml) 75 ml 1X ONCE IV Last administered on 02/11/21at 02:53; Start 02/11/21 at 02:30; Stop 02/11/21 at 02:31; Status DC Info (CONTRAST GIVEN -- Rx MONITORING) 1 each PRN DAILY PRN MC SEE COMMENTS; Start 02/11/21 at 02:30; Stop 02/13/21 at 02:29 Ondansetron HCl (Zofran) 4 mg PRN Q8HRS PRN IV NAUSEA/VOMITING; Start 02/11/21 at 04:15; Stop 02/12/21 at 04:14 Morphine Sulfate (Morphine Sulfate) 4 mg PRN Q2HR PRN IV PAIN Last administered on 02/11/21at 10:12; Start 02/11/21 at 04:15; Stop 02/12/21 at 04:14 Active Scripts Active Hydrocodone-Acetamin 5-325 mg (Hydrocodone/Acetaminophen) 1 Each Tablet 1 Each PO Q4-6HRS Zofran (Ondansetron Hcl) 4 Mg Tablet 1 Tab PO Q6HRS Zofran (Ondansetron Hcl) 4 Mg Tablet 4 Mg PO PRN TID PRN nausea/vomiting Tylenol With Codeine #3 Tablet (Acetaminophen/Codeine Phosphate) 1 Each Tablet 1 Tab PO PRN Q6HRS PRN [place] 5-325 Tablet (Acetaminophen/Hydrocodone Bitart) 1 Each Tablet 1-2 Tab PO Q4-6HRS PRN Medrol (Methylprednisolone) 4 Mg Tab.ds.pk 1 Pkg PO UD Zofran Odt (Ondansetron) 4 Mg Tab.rapdis 1 Tab SL Q8HRS [place] 5-325 Tablet (Acetaminophen/Hydrocodone Bitart) 1 Each Tablet 1 Tab PO PRN Q6HRS PRN Levaquin (Levofloxacin) 500 Mg Tablet 500 Mg PO DAILY06 5 Days [guaiFENesin/CODEINE 100mg/10mg] 5 ML Liquid 5 Ml PO PRN Q6HRS PRN 7 Days Reported Ropinirole Hcl 0.25 Mg Tablet 1 Tab PO QHS Fluoxetine Hcl 40 Mg Capsule 1 Cap PO DAILY Omeprazole 40 Mg Capsule.dr 1 Cap PO BID Triamterene-Hctz 37.5-25 Mg Cp (Triamterene/Hydrochlorothiazid) 1 Each Capsule 1 Cap PO DAILY Ranitidine Hcl 300 Mg Tablet 1 Tab PO BID Not given here Take again tonight Zoloft (Sertraline Hcl) 100 Mg Tablet 150 Mg PO DAILY Gave dose today Take again tomorrow Albuterol Sulfate Hfa Inhaler (Albuterol Sulfate) 8.5 Gm Hfa.aer.ad 2 Puff INH QID Not given on this admission Take again as previously scheduled Allergies Allergies: Coded Allergies: Penicillins (Verified Allergy, Intermediate, SWEATING, 04/01/14) cephalexin (Verified Allergy, Intermediate, SWEATING, 04/01/14) dicyclomine (Verified Allergy, Intermediate, 11/04/16) ketorolac (Verified Allergy, Intermediate, 07/26/16) sulfamethoxazole (Verified Allergy, Intermediate, SWEATING, 04/01/14) tramadol (Verified Allergy, Intermediate, SWEATING, 04/01/14) trimethoprim (Verified Allergy, Intermediate, SWEATING, 04/01/14) ROS General: No: Chills, Night Sweats, Fatigue, Malaise, Appetite, Other PSYCHOLOGICAL ROS: No: Anxiety, Behavioral Disorder, Concentration difficultie, Decreased libido, Depression, Disorientation, Hallucinations, Hostility, Irritablity, Memory difficulties, Mood Swings, Obsessive thoughts, Physical abuse, Sexual abuse, Sleep disturbances, Suicidal ideation, Other Eyes: No Blurry vision, No Decreased vision, No Double vision, No Dry eyes, No Excessive tearing, No Eye Pain, No Itchy Eyes, No Loss of vision, No Photophobia, No Scotomata, No Uses contacts, No Uses glasses, No Other HEENT: No: Heacaches, Visual Changes, Hearing change, Nasal congestion, Nasal discharge, Oral lesions, Sinus pain, Sore Throat, Epistaxis, Sneezing, Snoring, Tinnitus, Vertigo, Vocal changes, Other ALLERGY AND IMMUNOLOGY: No: Hives, Insect Bite Sensitivity, Itchy/Watery Eyes, Nasal Congestion, Post Nasal Drip, Seasonal Allergies, Other Hematological and Lymphatic: No: Bleeding Problems, Blood Clots, Blood Transfusions, Brusing, Night Sweats, Pallor, Swollen Lymph Nodes, Other ENDOCRINE: No: Breast Changes, Galactorrhea, Hair Pattern Changes, Hot Flashes, Malaise/lethargy, Mood Swings, Palpitations, Polydipsia/polyuria, Skin Changes, Temperature Intolerance, Unexpected Weight Changes, Other Breast: No New/Changing Breast Lumps, No Nipple changes, No Nipple discharge, No Other Respiratory: No: Cough, Hemoptysis, Orthopnea, Pleuritic Pain, Shortness of breath, SOB with excertion, Sputum Changes, Stridor, Tachypnea, Wheezing, Other Cardiovascular: No Chest Pain, No Palpitations, No Orthopnea, No Paroxysmal Noc. Dyspnea, No Edema, No Lt Headedness, No Other Gastrointestinal: Yes Nausea, Yes Vomiting, Yes Abdominal Pain; No Diarrhea, No Constipation, No Melena, No Hematochezia, No Other Genitourinary: No Dysuria, No Frequency, No Incontinence, No Hematuria, No Retention, No Discharge, No Urgency, No Pain, No Flank Pain, No Other, No , No , No , No , No , No , No Musculoskeletal: No Gait Disturbance, No Joint Pain, No Joint Stiffness, No Joint Swelling, No Muscle Pain, No Muscular Weakness, No Pain In:, No Swelling In:, No Other Neurological: No Behavorial Changes, No Bowel/Bladder ControlChng, No Confusion, No Dizziness, No Gait Disturbance, No Headaches, No Impaired Coord/balance, No Memory Loss, No Numbness/Tingling, No Seizures, No Speech Problems, No Tremors, No Visual Changes, No Weakness, No Other Skin: No Dry Skin, No Eczema, No Hair Changes, No Lumps, No Mole Changes, No Mottling, No Nail Changes, No Pruritus, No Rash, No Skin Lesion Changes, No Other, No Acne Physical Exam General: Alert, Oriented X3, Cooperative, No acute distress HEENT: Atraumatic, PERRLA, EOMI, Mucous membr. moist/pink Lungs: Clear to auscultation, Normal air movement Heart: RRR Breasts: Not examined Abdomen: Normal bowel sounds, Soft, No tenderness, Other (VERY OBESE) Rectal Exam: not examined PELVIC: Examination not indicated Extremities: No cyanosis, No edema Skin: No breakdown, No significant lesion Neuro: Normal speech, Strength at 5/5 X4 ext, Sensation intact, Cranial nerves 3-12 NL Psych/Mental Status: Mental status NL, Mood NL FINAL DIAGNOSIS Problems Medical Problems: (1) Abdominal pain Status: Acute Brief Hospital Course Ms. Hayes is a 40 old [sex] who presented with [ ] CONDITION AT DISCHARGE: Comment (left ama) Discharge Medications Current Medications Morphine Sulfate (Morphine Sulfate) 4 mg 1X ONCE IV Last administered on 02/11/21at 02:34; Start 02/11/21 at 02:30; Stop 02/11/21 at 02:31; Status DC Ondansetron HCl (Zofran) 4 mg 1X ONCE IVP Last administered on 02/11/21at 02:34; Start 02/11/21 at 02:30; Stop 02/11/21 at 02:31; Status DC Iohexol (Omnipaque 300 Mg/ml) 75 ml 1X ONCE IV Last administered on 02/11/21at 02:53; Start 02/11/21 at 02:30; Stop 02/11/21 at 02:31; Status DC Info (CONTRAST GIVEN -- Rx MONITORING) 1 each PRN DAILY PRN MC SEE COMMENTS; Start 02/11/21 at 02:30; Stop 02/13/21 at 02:29 Ondansetron HCl (Zofran) 4 mg PRN Q8HRS PRN IV NAUSEA/VOMITING Last administered on 02/11/21at 13:58; Start 02/11/21 at 04:15; Stop 02/12/21 at 04:14 Morphine Sulfate (Morphine Sulfate) 4 mg PRN Q2HR PRN IV PAIN Last administered on 02/11/21at 18:04; Start 02/11/21 at 04:15; Stop 02/12/21 at 04:14 Insulin Human Lispro (HumaLOG) 0-5 UNITS TIDWMEALS SQ ; Start 02/11/21 at 17:00; Status UNV Insulin Human Lispro (HumaLOG) 0-7 UNITS TIDWMEALS SQ ; Start 02/11/21 at 17:00 Dextrose (Dextrose 50%-Water Syringe) 12.5 gm PRN Q15MIN PRN IV SEE COMMENTS; Start 02/11/21 at 15:00 Active Scripts Active Hydrocodone-Acetamin 5-325 mg (Hydrocodone/Acetaminophen) 1 Each Tablet 1 Each PO Q4-6HRS Zofran (Ondansetron Hcl) 4 Mg Tablet 1 Tab PO Q6HRS Zofran (Ondansetron Hcl) 4 Mg Tablet 4 Mg PO PRN TID PRN nausea/vomiting Tylenol With Codeine #3 Tablet (Acetaminophen/Codeine Phosphate) 1 Each Tablet 1 Tab PO PRN Q6HRS PRN [place] 5-325 Tablet (Acetaminophen/Hydrocodone Bitart) 1 Each Tablet 1-2 Tab PO Q4-6HRS PRN Medrol (Methylprednisolone) 4 Mg Tab.ds.pk 1 Pkg PO UD Zofran Odt (Ondansetron) 4 Mg Tab.rapdis 1 Tab SL Q8HRS [place] 5-325 Tablet (Acetaminophen/Hydrocodone Bitart) 1 Each Tablet 1 Tab PO PRN Q6HRS PRN Levaquin (Levofloxacin) 500 Mg Tablet 500 Mg PO DAILY06 5 Days [guaiFENesin/CODEINE 100mg/10mg] 5 ML Liquid 5 Ml PO PRN Q6HRS PRN 7 Days Reported Ropinirole Hcl 0.25 Mg Tablet 1 Tab PO QHS Fluoxetine Hcl 40 Mg Capsule 1 Cap PO DAILY Omeprazole 40 Mg Capsule.dr 1 Cap PO BID Triamterene-Hctz 37.5-25 Mg Cp (Triamterene/Hydrochlorothiazid) 1 Each Capsule 1 Cap PO DAILY Ranitidine Hcl 300 Mg Tablet 1 Tab PO BID Not given here Take again tonight Zoloft (Sertraline Hcl) 100 Mg Tablet 150 Mg PO DAILY Gave dose today Take again tomorrow Albuterol Sulfate Hfa Inhaler (Albuterol Sulfate) 8.5 Gm Hfa.aer.ad 2 Puff INH QID Not given on this admission Take again as previously scheduled Vital Signs Vital Signs Date Time Temp Pulse Resp B/P (MAP) Pulse Ox O2 Delivery O2 Flow Rate FiO2 02/11/21 19:00 97.4 78 18 127/67 (87) 94 Room Air 97.4 Labs Laboratory Tests Test 02/11/21 02:05 02/11/21 02:10 02/11/21 16:12 02/11/21 19:45 White Blood Count 9.9 x10^3/uL (4.0-11.0) Red Blood Count 4.22 x10^6/uL (3.50-5.40) Hemoglobin 12.7 g/dL (12.0-15.5) Hematocrit 36.9 % (36.0-47.0) Mean Corpuscular Volume 87 fL (79-100) Mean Corpuscular Hemoglobin 30 pg (25-35) Mean Corpuscular Hemoglobin Concent 34 g/dL (31-37) Red Cell Distribution Width 12.9 % (11.5-14.5) Platelet Count 183 x10^3/uL (140-400) Neutrophils (%) (Auto) 60 % (31-73) Lymphocytes (%) (Auto) 27 % (24-48) Monocytes (%) (Auto) 9 % (0-9) Eosinophils (%) (Auto) 3 % (0-3) Basophils (%) (Auto) 0 % (0-3) Neutrophils # (Auto) 5.9 x10^3/uL (1.8-7.7) Lymphocytes # (Auto) 2.7 x10^3/uL (1.0-4.8) Monocytes # (Auto) 0.9 x10^3/uL (0.0-1.1) Eosinophils # (Auto) 0.3 x10^3/uL (0.0-0.7) Basophils # (Auto) 0.0 x10^3/uL (0.0-0.2) Sodium Level 143 mmol/L (136-145) Potassium Level 3.9 mmol/L (3.5-5.1) Chloride Level 107 mmol/L (98-107) Carbon Dioxide Level 28 mmol/L (21-32) Anion Gap 8 (6-14) Blood Urea Nitrogen 16 mg/dL (7-20) Creatinine 1.0 mg/dL (0.6-1.0) Estimated GFR (Cockcroft-Gault) 61.7 BUN/Creatinine Ratio 16 (6-20) Glucose Level 164 mg/dL (70-99) Calcium Level 8.9 mg/dL (8.5-10.1) Total Bilirubin 0.3 mg/dL (0.2-1.0) Aspartate Amino Transf (AST/SGOT) 33 U/L (15-37) Alanine Aminotransferase (ALT/SGPT) 61 U/L (14-59) Alkaline Phosphatase 86 U/L (46-116) Total Protein 7.1 g/dL (6.4-8.2) Albumin 3.4 g/dL (3.4-5.0) Albumin/Globulin Ratio 0.9 (1.0-1.7) Lipase 250 U/L (73-393) Urine Collection Type Unknown Urine Color Yellow Urine Clarity Clear Urine pH 5.0 (<5.0-8.0) Urine Specific [place] >=1.030 (1.000-1.030) Urine Protein Negative mg/dL (NEG-TRACE) Urine Glucose (UA) Negative mg/dL (NEG) Urine Ketones (Stick) Negative mg/dL (NEG) Urine Blood Negative (NEG) Urine Nitrite Negative (NEG) Urine Bilirubin Negative (NEG) Urine Urobilinogen Dipstick 0.2 mg/dL (0.2 mg/dL) Urine Leukocyte Esterase Negative (NEG) Urine RBC 0 /HPF (0-2) Urine WBC Occ /HPF (0-4) Urine Squamous Epithelial Cells Many /LPF Urine Bacteria Moderate /HPF (0-FEW) Urine Mucus Mod /LPF Urine Test Negative (NEG) Glucose (Fingerstick) 163 mg/dL (70-99) 128 mg/dL (70-99) Laboratory Tests Test 02/11/21 02:05 02/11/21 02:10 02/11/21 16:12 02/11/21 19:45 White Blood Count 9.9 x10^3/uL (4.0-11.0) Red Blood Count 4.22 x10^6/uL (3.50-5.40) Hemoglobin 12.7 g/dL (12.0-15.5) Hematocrit 36.9 % (36.0-47.0) Mean Corpuscular Volume 87 fL (79-100) Mean Corpuscular Hemoglobin 30 pg (25-35) Mean Corpuscular Hemoglobin Concent 34 g/dL (31-37) Red Cell Distribution Width 12.9 % (11.5-14.5) Platelet Count 183 x10^3/uL (140-400) Neutrophils (%) (Auto) 60 % (31-73) Lymphocytes (%) (Auto) 27 % (24-48) Monocytes (%) (Auto) 9 % (0-9) Eosinophils (%) (Auto) 3 % (0-3) Basophils (%) (Auto) 0 % (0-3) Neutrophils # (Auto) 5.9 x10^3/uL (1.8-7.7) Lymphocytes # (Auto) 2.7 x10^3/uL (1.0-4.8) Monocytes # (Auto) 0.9 x10^3/uL (0.0-1.1) Eosinophils # (Auto) 0.3 x10^3/uL (0.0-0.7) Basophils # (Auto) 0.0 x10^3/uL (0.0-0.2) Sodium Level 143 mmol/L (136-145) Potassium Level 3.9 mmol/L (3.5-5.1) Chloride Level 107 mmol/L (98-107) Carbon Dioxide Level 28 mmol/L (21-32) Anion Gap 8 (6-14) Blood Urea Nitrogen 16 mg/dL (7-20) Creatinine 1.0 mg/dL (0.6-1.0) Estimated GFR (Cockcroft-Gault) 61.7 BUN/Creatinine Ratio 16 (6-20) Glucose Level 164 mg/dL (70-99) Calcium Level 8.9 mg/dL (8.5-10.1) Total Bilirubin 0.3 mg/dL (0.2-1.0) Aspartate Amino Transf (AST/SGOT) 33 U/L (15-37) Alanine Aminotransferase (ALT/SGPT) 61 U/L (14-59) Alkaline Phosphatase 86 U/L (46-116) Total Protein 7.1 g/dL (6.4-8.2) Albumin 3.4 g/dL (3.4-5.0) Albumin/Globulin Ratio 0.9 (1.0-1.7) Lipase 250 U/L (73-393) Urine Collection Type Unknown Urine Color Yellow Urine Clarity Clear Urine pH 5.0 (<5.0-8.0) Urine Specific [place] >=1.030 (1.000-1.030) Urine Protein Negative mg/dL (NEG-TRACE) Urine Glucose (UA) Negative mg/dL (NEG) Urine Ketones (Stick) Negative mg/dL (NEG) Urine Blood Negative (NEG) Urine Nitrite Negative (NEG) Urine Bilirubin Negative (NEG) Urine Urobilinogen Dipstick 0.2 mg/dL (0.2 mg/dL) Urine Leukocyte Esterase Negative (NEG) Urine RBC 0 /HPF (0-2) Urine WBC Occ /HPF (0-4) Urine Squamous Epithelial Cells Many /LPF Urine Bacteria Moderate /HPF (0-FEW) Urine Mucus Mod /LPF Urine Test Negative (NEG) Glucose (Fingerstick) 163 mg/dL (70-99) 128 mg/dL (70-99) Allergies Allergies Coded Allergies Type Severity Reaction Last Updated Verified Penicillins Allergy Intermediate SWEATING 04/01/14 Yes cephalexin Allergy Intermediate SWEATING 04/01/14 Yes dicyclomine Allergy Intermediate 11/04/16 Yes ketorolac Allergy Intermediate 07/26/16 Yes sulfamethoxazole Allergy Intermediate SWEATING 04/01/14 Yes tramadol Allergy Intermediate SWEATING 04/01/14 Yes trimethoprim Allergy Intermediate SWEATING 04/01/14 Yes Disposition/Orders: Other (left ama) Justicifation of Admission Dx: Justifications for Admission: Justification of Admission Dx: No ALEX VARGAS MD Feb 11, 2021 20:24
[2021-02-12 01:13] LABS: HEMOGLOBIN A1C 5.8 % (4.8-5.6)
== END 2021-02-11 20:10 | disposition left against medical advice (07) ==
LOC: ER 01:51 → 4 NORTH 04:04
PROVIDERS: ADMIT Internal Medicine; ATTEND Internal Medicine
DX: R10.31 Right lower quadrant pain (principal); I10 Essential (primary) hypertension; J45.909 Unspecified asthma, uncomplicated; E66.01 Morbid (severe) obesity due to excess calories; F17.210 Nicotine dependence, cigarettes, uncomplicated; K21.9 Gastro-esophageal reflux disease without esophagitis; K46.9 Unspecified abdominal hernia without obstruction or gangrene; K58.9 Irritable bowel syndrome, unspecified; R16.0 Hepatomegaly, not elsewhere classified; F31.9 Bipolar disorder, unspecified; Z68.43 Body mass index [BMI] 50.0-59.9, adult; Z79.899 Other long term (current) drug therapy; Z85.43 Personal history of malignant neoplasm of ovary; Z90.49 Acquired absence of other specified parts of digestive tract; Z90.710 Acquired absence of both cervix and uterus; Z98.890 Other specified postprocedural states
CPT/HCPCS: 36415; 74177; 80053; 81001; 81025; 82962; 83036; 83690; 85025; 86304; 87086; 96374; 96375; 96376; 99285; G0378; J1815; J2270; J2405; Q9967; G0379